=== PATIENT | male | born 1940 | race Hispanic/Latino ===

== ENCOUNTER 2017-08-19 18:46 | Emergency (ER) | payer OTHER, MEDICARE ==
--- OUTSIDE RECORDS SUMMARY | 2017-08-19 18:48 | XMS REPORT | Clinical Summary ---
:1940 Author Organization [facility] Address [address] [place] [address] Care Team Providers Name Role Phone Rober Guillaume MD Primary Care Provider Allergies Active Allergy Reactions Severity Noted Date Comments Adhesive Tape-Silicones 01/31/2016 No Known Drug Allergies 01/31/2016 Current Medications Prescription Sig. Disp. Refills Start Date End Date Status glimepiride (AMARYL) 2 Take 2 mg by Active MG tablet mouth 2 (two) times a day. amLODIPine (NORVASC) 10 Take 10 mg by Active MG tablet mouth 2 (two) times a day. apixaban (ELIQUIS) 5 mg Take by mouth 2 Active tablet (two) times a day. FEXOFENADINE HCL Take by mouth Active (HAIR ALLERGY ORAL) daily. latanoprost (XALATAN) 1 drop nightly. Active 0.005 % ophthalmic solution donepezil (ARICEPT) 5 09/09/2016 Active MG tablet omeprazole (PriLOSEC) 08/26/2016 Active 40 MG capsule simvastatin (ZOCOR) 40 Take 1 tablet 90 tablet 3 09/10/2016 09/10/2017 Active MG tabletIndications: (40 mg total) Hyperlipidemia, by mouth unspecified nightly. 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 Coronary arteriosclerosis 11/09/2015 Type 2 diabetes mellitus 11/09/2015 HLD (hyperlipidemia) 11/09/2015 Encounters Date Type Specialty Care Team Description 04/01/2017 Lab Lab Mustapha Jama MD Paroxysmal atrial fibrillation; CAD in [place] artery 04/01/2017 Office Visit Cardiology Mustapha Jama MD Hx of CABG (Primary Dx); Paroxysmal atrial fibrillation; CAD in [place] artery 11/05/2016 Lab Lab Jose Yariel Status post eze Gaitan MD artery bypass graft 11/05/2016 Office Visit Cardiovascular Yariel Garcia S/P CABG (coronary artery MD Arnie bypass graft) (Primary Dx) 11/04/2016 Orders Only Jillian Zuniga Status post coronary artery bypass graft (Primary Dx) 09/10/2016 Office Visit Cardiology Mustapha Jama MD Hx of CABG (Primary Dx); Hyperlipidemia, unspecified hyperlipidemia type; Coronary arteriosclerosis; Paroxysmal atrial fibrillation after 08/18/2016 Family History Medical History Relation Name Comments Blood Clots Mother Relation Name Status Comments Mother Social History Tobacco Use Types Packs/Day Years Used Date Former Smoker Cigarettes 0.5 20 Smokeless Tobacco: Former User Comments: QUIT-1980 Alcohol Use Drinks/Week oz/Week Comments No Sex Assigned at Date Recorded Not on file Last Filed Vital Signs Vital Sign Reading Time Taken Blood Pressure 125/62 04/01/2017 11:18 AM RENTAL CLERK Pulse 65 04/01/2017 11:18 AM RENTAL CLERK Temperature 35.7 C (96.2 F) 11/05/2016 1:08 PM CDT Respiratory Rate 14 11/05/2016 1:08 PM CDT Oxygen Saturation - - Inhaled Oxygen Concentration - - Weight 87.2 kg (192 lb 3.2 oz) 04/01/2017 11:18 AM RENTAL CLERK Height 167.6 cm (5' 6") 11/05/2016 1:08 PM CDT Body Mass Index 31.02 04/01/2017 11:18 AM RENTAL CLERK Plan of Treatment Date Type Specialty Care Team Description 09/30/2017 Office Visit Cardiology Mustapha Jama MD [address] [place] [address] Health Maintenance Due Date Last Done Comments DIABETIC FOOT EXAM 06/21/1950 DIABETIC RETINAL EYE EXAM 06/21/1950 SHINGRIX VACCINE (#1) 06/21/1991 ZOSTER VACCINE 2001 PNEUMOCOCCAL POLYSACCHARIDE VACCINE AGE 65 AND OVER 2006 PNEUMOCOCCAL-13 2006 INFLUENZA VACCINE 10/22/2017 Implants Implanted Type Area Glove Tagger Device Expiration Model / Identifier Date Serial / Lot Lead Pace Chandler Mycrdl Unipol Tmpry Streamline - [id number] Cardiovascular N/A: [employer] [place] - [id number] / Implanted: 11/09/2015 (Quantity not on file) Implants N/A CARDIAC SRGRY / Lead Pace Chandler Mycrdl Unipol Tmpry Streamline - [id number] Cardiovascular N/A: [employer] [place] - [id number] / Implanted: 11/09/2015 (Quantity not on file) Implants N/A CARDIAC SRGRY / [place] Perph Vasclr Ptfe 1.2x10cm 1.65mm - [id number] Vascular Graft N/A: BARD PERIPHERAL [id number] / Implanted: 11/09/2015 (Quantity not on file) N/A VASCULAR / Results Lipid panel (04/01/2017 11:41 AM) Component Value Ref Range Cholesterol 132 100 - 199 mg/dL Triglycerides 221 (H) 0 - 149 mg/dL HDL cholesterol 41 >39 mg/dL VLDL cholesterol ann 44 (H) 5 - 40 mg/dL LDL cholesterol calculated 47 0 - 99 mg/dL Non-HDL cholesterol 91 0 - 129 mg/dL Specimen Performing Laboratory Blood [facility] Narrative Performed at:[address] [place], [place] [id number] Shingles Roofer Helper: Michael Dukes MD, Phone:[phone] ECG 12 lead (04/01/2017 11:27 AM) Component Value Ref Range Ventricular rate 60 Atrial rate 60 MS interval 206 QRSD interval 90 QT interval 426 QTC interval 426 P axis 1 49 QRS axis 1 56 T wave axis 55 EKG impression Normal sinus rhythm-Normal ECG-In automated comparison with ECG of 13-NOV-2015 11:57,-Questionable change in QRS axis-Nonspecific T wave abnormality no longer evident in Inferior leads-Nonspecific T wav e abnormality no longer evident in Anterolateral leads- 2: 26:30 PM Specimen Performing Laboratory [facility] [address] [place] [address] MWS - LDL cholesterol (11/05/2016 2:15 PM) Component Value Ref Range MWS - LDL cholesterol 85Comment: Result obtained by direct LDL measurement < 100 mg/dL Specimen Performing Laboratory Plasma specimen [facility] DEPARTMENT OF PATHOLOGY AND [facility] [address] [place] [id number] Estimated GFR (11/05/2016 2:15 PM) Component Value Ref Range GFR Non Af Amer 65 mL/min/1.73 m2 GFR Af Amer 79 mL/min/1.73 m2 Comment: Chronic kidney disease: <60 mL/min/1.73m2 Kidney failure: <15 mL/min/1.73m2 The estimated GFR is calculated from the IDMS-traceable Modification of Diet in Renal Disease Equation. The accuracy of the calculation is poor when the creatinine is normal. Calculated values >90 mL/min/1.73m2 are not reported. This equation has not been validated in children (<18 years), women, the elderly (>70 years), or ethnic groups other than Caucasians and Americans. Specimen Performing Laboratory Plasma specimen [facility] DEPARTMENT OF PATHOLOGY AND [address] [address] Hemoglobin & hematocrit (11/05/2016 2:15 PM) Component Value Ref Range HGB 14.1 14.0 - 18.0 g/dL HCT 41.4 41.0 - 51.0 % Specimen Performing Laboratory Blood [facility] DEPARTMENT OF PATHOLOGY AND [facility] [address] [place] [id number] Triglycerides (11/05/2016 2:15 PM) Component Value Ref Range Triglycerides 143 <150 mg/dL Specimen Performing Laboratory Plasma specimen [facility] DEPARTMENT OF PATHOLOGY AND GENOMIC MEDICINE [address] [place] [id number] HDL cholesterol (11/05/2016 2:15 PM) Component Value Ref Range HDL cholesterol 48 >40 mg/dL Specimen Performing Laboratory Plasma specimen [facility] DEPARTMENT OF PATHOLOGY AND GENOMIC MEDICINE [address] [place] [id number] Hemoglobin A1c (11/05/2016 2:15 PM) Component Value Ref Range Hemoglobin A1C 6.2 (H) 4.0 - 5.6 % Comment: HbA1c cutoffs for diagnosing diabetes: 4.0% - 5.6%=normal 5.7% - 6.4%=increased risk for diabetes (prediabetes) >=6.5%=diabetes Goals for glycemic control (ADA 2016) < 7.0%Target for non adults with diabetes. More or less stringent targets may be appropriate for individual patients. <7.5% Target for Children and adolescents with type 1 diabetes. Specimen Performing Laboratory Blood [facility] DEPARTMENT OF PATHOLOGY AND GENOMIC MEDICINE [address] [place] [phone] Creatinine level (11/05/2016 2:15 PM) Component Value Ref Range Creatinine 1.1 0.7 - 1.2 mg/dL Specimen Performing Laboratory Plasma specimen [facility] DEPARTMENT OF PATHOLOGY AND GENOMIC MEDICINE [address] [place] [address] Cholesterol (11/05/2016 2:15 PM) Component Value Ref Range Cholesterol 148 <200 mg/dL Specimen Performing Laboratory Plasma specimen [facility] DEPARTMENT OF PATHOLOGY AND GENOMIC MEDICINE [address] [place] [id number] after 08/18/2016 Insurance Payer Benefit Plan / Group Subscriber ID Type Phone Address MEDICARE MEDICARE PART A AND B xxxxxxxxxx Medicare [place], [place] AARP AARP SUPPLEMENT xxxxxxxxxxx Commercial [phone] [place] [phone]
[2017-08-19] MEDS ORDERED: ASPIRIN 81 MG CHEWABLE TABLET ONE (21:32)
[2017-08-19 21:41] LABS: Absolute Lymphocytes (CBC) 1.8 K/uL (0.7-4.9); Absolute Monocytes 0.7 K/uL (0.1-1.3); Absolute Neutrophil 3.1 K/uL (1.8-8.0); Basophils % 0.6 % (0-1.3); Eosinophils % 2.6 % (0-4.4); Lymphocytes % 30.8 % (15.3-44.8); MCH 31.6 pg (27.0-35.0); MCV 90.7 fL (80-100); MPV 8.8 fL (7.6-11.3); Monocytes % 12.1 % (3.3-12.3); RBC Red Blood Cell Count 4.63 M/uL (4.33-5.43)
[2017-08-19 21:48] LABS: Protime INR 1.14
[2017-08-19 21:52] LABS: Bicarbonate 30 mEq/L (21-31); Glucose Level 152 mg/dL (65-120); Potassium 3.5 mEq/L (3.6-5.0); Sodium Level 140 mEq/L (135-145)
[2017-08-19 21:53] LABS: BUN Blood Urea Nitrogen 14 mg/dL (6-20); Magnesium 2.2 mg/dL (1.8-2.5)
[2017-08-19 22:43] LABS: Urine Blood NEGATIVE (NEG); Urine Glucose 1+ (NEG); Urine Protein NEGATIVE (NEG); Urine pH 6.5 (5.0-7.0)
--- NOTE | 2017-08-19 23:45 | EDPHYS ---
Physician Documentation [facility] Name: Herb Greco Jr Age: 77 yrs Sex: Male : 1940 Arrival Date: 08/19/2017 Time: 18:50 Bed 6 Private MD: Rober Guillaume ED Physician Ralph Argueta HPI: 08/19 21:21 This 77 yrs old Male presents to ER via Ambulatory with complaints of Chest jr8 Pain. 21:21 The patient or guardian reports chest pain that is located primarily in the anterior jr8 chest wall, left. Onset: acutely, yesterday. The pain does not radiate. Associated signs and symptoms: Pertinent positives: indigestive feeling . The chest pain is described as a pressure. Duration: The patient or guardian reports multiple episodes, that are intermittent, that wax and wane, the episodes last approximately 30 second(s). Modifying factors: The symptoms are alleviated by nothing. the symptoms are aggravated by nothing. Severity of pain: At its worst the pain was moderate in the emergency department the pain has resolved. The patient has not experienced similar symptoms in the past. The patient has not recently seen a physician. History of CABG and angioplasty . Historical: - Allergies: 19:01 No Known Allergies; lp1 - Home Meds: 21:17 pantoprazole 40 mg oral TbEC 1 tab once daily [Active]; Eliquis 5 mg oral tab 1 tab ak1 daily [Active]; Aspir-81 81 mg oral TbEC 1 tab once daily [Active]; donepezil 5 mg oral tab 1 tab once daily [Active]; glimepiride 4 mg Oral tab 1 tab once daily [Active]; simvastatin 40 mg Oral tab 1 tab once daily [Active]; memantine 5 mg oral tab 2 times per day [Active]; amlodipine oral [Active]; - PMHx: 19:01 Diabetes - NIDDM; Hypertension; lp1 - PSHx: 19:01 Heart stents; Bypass; lp1 - Immunization history:: Adult Immunizations up to date. - Social history:: Smoking status: Patient/guardian denies using tobacco. - Ebola Screening: : No symptoms or risks identified at this time. ROS: 21:21 Eyes: Negative for injury, pain, redness, and discharge, ENT: Negative for injury, jr8 pain, and discharge, Neck: Negative for injury, pain, and swelling, Respiratory: Negative for shortness of breath, cough, wheezing, and pleuritic chest pain, Abdomen/GI: Negative for abdominal pain, nausea, vomiting, diarrhea, and constipation, Back: Negative for injury and pain, MS/Extremity: Negative for injury and deformity, Skin: Negative for injury, rash, and discoloration, Neuro: Negative for headache, weakness, numbness, tingling, and seizure. 21:21 Cardiovascular: Positive for chest pain, Negative for edema, orthopnea, palpitations, paroxysmal nocturnal dyspnea. Exam: 21:21 Eyes: Pupils equal round and reactive to light, extra-ocular motions intact. Lids and jr8 lashes normal. Conjunctiva and sclera are non-icteric and not injected. Cornea within normal limits. Periorbital areas with no swelling, redness, or edema. ENT: Nares patent. No nasal discharge, no septal abnormalities noted. Tympanic membranes are normal and external auditory canals are clear. Oropharynx with no redness, swelling, or masses, exudates, or evidence of obstruction, uvula midline. Mucous membranes moist. Neck: Trachea midline, no thyromegaly or masses palpated, and no cervical lymphadenopathy. Supple, full range of motion without nuchal rigidity, or vertebral point tenderness. No Meningismus. Cardiovascular: Regular rate and rhythm with a normal S1 and S2. No gallops, murmurs, or rubs. Normal PMI, no JVD. No pulse deficits. Respiratory: Lungs have equal breath sounds bilaterally, clear to auscultation and percussion. No rales, rhonchi or wheezes noted. No increased work of breathing, no retractions or nasal flaring. Abdomen/GI: Soft, non-tender, with normal bowel sounds. No distension or tympany. No guarding or rebound. No evidence of tenderness throughout. Back: No spinal tenderness. No costovertebral tenderness. Full range of motion. Skin: Warm, dry with normal turgor. Normal color with no rashes, no lesions, and no evidence of cellulitis. MS/ Extremity: Pulses equal, no cyanosis. Neurovascular intact. Full, normal range of motion. Neuro: Awake and alert, GCS 15, oriented to person, place, time, and situation. Cranial nerves II-XII grossly intact. Motor strength 5/5 in all extremities. Sensory grossly intact. Cerebellar exam normal. Normal gait. Vital Signs: 19:00 BP 173 / 83; Pulse 68; Resp 18; Temp 98.3(TE); Pulse Ox 98% on R/A; Weight 83.91 kg; lp1 Height 5 ft. 7 in. (170.18 cm); Pain 2/10; 21:29 BP 177 / 96; Pulse 54; Resp 13; Pulse Ox 98% on R/A; Pain 0/10; tl2 22:41 BP 162 / 84; Pulse 55; Resp 13; Pulse Ox 99% on R/A; tl2 23:40 BP 176 / 88; Pulse 55; Resp 14; Temp 98.3; Pulse Ox 99% on R/A; Pain 1/10; ak1 19:00 Body Mass Index 28.97 (83.91 kg, 170.18 cm) lp1 MDM: 21:14 Patient medically screened. jr8 23:43 The patient was not given aspirin in the Emergency Department. Patient reports taking jr8 aspirin within the past 24 hours. Data reviewed: vital signs, nurses notes, lab test result(s), EKG, radiologic studies, plain films, and as a result, I will discharge patient. Data interpreted: Pulse oximetry: on room air is 99 %. Interpretation: normal. Counseling: I had a detailed discussion with the patient and/or guardian regarding: the historical points, exam findings, and any diagnostic results supporting the discharge/admit diagnosis, lab results, radiology results, the need for outpatient follow up, a chute worker, a family practitioner, to return to the emergency department if symptoms worsen or persist or if there are any questions or concerns that arise at home. 23:44 Differential diagnosis: acute myocardial infarction, acute pericarditis, chest wall jr8 pain, esophagitis, gastritis, gastroesophageal reflux disease (GERD), pancreatitis, pneumonia, pulmonary embolus, stable angina, thoracic aortic disection, unstable angina. Special discussion: Based on the patient's history, exam, and Dx evaluation, there is no indication for emergent intervention or inpatient Tx. It is understood by the patient/guardian that if the Sx's persist or worsen they need to return immediately for re-evaluation. 08/19 21:14 Order name: Basic Metabolic Panel; Complete Time: 21:57 jr8 08/19 21:14 Order name: BNP; Complete Time: 22:07 jr8 08/19 21:14 Order name: CBC with Diff; Complete Time: 21:47 [facility] 08/19 21:14 Order name: Magnesium; Complete Time: 21:57 08/19 21:14 Order name: PT-INR; Complete Time: 22:07 [facility] 08/19 21:14 Order name: Troponin (emerg Dept Use Only); Complete Time: 22:02 [facility] 08/19 21:14 Order name: XRAY Chest (1 view) 08/19 21:14 Order name: EKG; Complete Time: 21:15 [facility] 08/19 21:14 Order name: Cardiac monitoring; Complete Time: :28 [facility] 08/19 21:14 Order name: EKG - Nurse/Tech; Complete Time: : [facility] 08/19 21:14 Order name: IV Saline Lock; Complete Time: : [facility] 08/19 22:38 Order name: Urine Dipstick--Ancillary (enter results); Complete Time: 22: 08/19 22:56 Order name: Troponin (emerg Dept Use Only); Complete Time: 23:43 08/19 21:14 Order name: Labs collected and sent; Complete Time: : [facility] 08/19 21:14 Order name: O2 Per Protocol; Complete Time: : [facility] 08/19 21:14 Order name: O2 Sat Monitoring; Complete Time: : [facility] 08/19 21:14 Order name: Urine Dipstick-Ancillary (obtain specimen); Complete Time: 22:13 Administered Medications: 21:45 Not Given (Pt took at home): Aspirin Chewable Tablet 324 mg PO once; 81 mg tablets x 4 tl2 Disposition: 08/20 06:47 Co-signature as Attending Physician, Ralph Argueta MD. rn Disposition: 08/19/17 23:43 Discharged to Home. Impression: Chest pain, unspecified. - Condition is Stable. - Discharge Instructions: Nonspecific Chest Pain, Aspirin and Your Heart. - Medication Reconciliation Form, Thank You Letter, Antibiotic Education, Prescription Opioid Use form. - Follow up: Private Physician; When: 2 - 3 days; Reason: Recheck today's complaints, Continuance of care, Re-evaluation by your physician. - Problem is new. - Symptoms have improved. Signatures: Dispatcher [employer] EDRalph Gudino MD MD rn Pena, Laura RN RN lp1 Steven Resendiz PA PA jr8 Mackenzie Granda RN RN ak1 Vidya Valentino RN tl2 Corrections: (The following items were deleted from the chart) 08/19 23:52 23:43 08/19/2017 23:43 Discharged to Home. Impression: Chest pain, unspecified. ak1 Condition is Stable. Forms are Medication Reconciliation Form, Thank You Letter, Antibiotic Education, Prescription Opioid Use. Follow up: Private Physician; When: 2 - 3 days; Reason: Recheck today's complaints, Continuance of care, Re-evaluation by your physician. Problem is new. Symptoms have improved. jr8
--- NOTE | 2017-08-19 23:45 | ER ---
Nurse's Notes [facility] Name: Herb Greco Jr Age: 77 yrs Sex: Male : 1940 Arrival Date: 08/19/2017 Time: 18:50 Bed 6 Private MD: Rober Guillaume Diagnosis: Chest pain, unspecified Presentation: 08/19 18:58 Presenting complaint: Patient states: Left anterior chest pain that began yesterday, lp1 severe, chest pain back today but not as bad; States indigestion as well. Transition of care: patient was not received from another setting of care. Onset of symptoms was August 18, 2017. Risk Assessment: Do you want to hurt yourself or someone else? Patient reports no desire to harm self or others. Initial Sepsis Screen: Does the patient meet any 2 criteria? No. Patient's initial sepsis screen is negative. Does the patient have a suspected source of infection? No. Patient's initial sepsis screen is negative. Care prior to arrival: None. 18:58 Method Of Arrival: Ambulatory lp1 18:58 Acuity: LIZZ 3 lp1 Triage Assessment: 19:01 General: Appears in no apparent distress. Behavior is calm, cooperative, appropriate lp1 for age. Pain: Complains of pain in anterior aspect of left upper chest Pain currently is 2 out of 10 on a pain scale. Cardiovascular: Patient's skin is warm and dry. Historical: - Allergies: 19:01 No Known Allergies; lp1 - Home Meds: 21:17 pantoprazole 40 mg oral TbEC 1 tab once daily [Active]; Eliquis 5 mg oral tab 1 tab ak1 daily [Active]; Aspir-81 81 mg oral TbEC 1 tab once daily [Active]; donepezil 5 mg oral tab 1 tab once daily [Active]; glimepiride 4 mg Oral tab 1 tab once daily [Active]; simvastatin 40 mg Oral tab 1 tab once daily [Active]; memantine 5 mg oral tab 2 times per day [Active]; amlodipine oral [Active]; - PMHx: 19:01 Diabetes - NIDDM; Hypertension; lp1 - PSHx: 19:01 Heart stents; Bypass; lp1 - Immunization history:: Adult Immunizations up to date. - Social history:: Smoking status: Patient/guardian denies using tobacco. - Ebola Screening: : No symptoms or risks identified at this time. Screenin:17 Abuse screen: Denies threats or abuse. Denies injuries from another. Nutritional ak1 screening: No deficits noted. Tuberculosis screening: No symptoms or risk factors identified. Fall Risk None identified. Assessment: 21:17 Pain: ak1 21:17 General: Appears in no apparent distress. comfortable, Behavior is calm, cooperative, tl2 appropriate for age. Pain: Denies pain. Neuro: Level of Consciousness is awake, alert, obeys commands, Oriented to person, place, time, situation. Cardiovascular: Reports pt reported that he had chest pain earlier today but denies pain at this time. Respiratory: Airway is patent Respiratory effort is even, unlabored, Respiratory pattern is regular, symmetrical. GI: No signs and/or symptoms were reported involving the gastrointestinal system. : No signs and/or symptoms were reported regarding the genitourinary system. Derm: Skin is pink, warm \T\ dry. 21:18 Pain: Pain began 1 day ago. ak1 21:37 Reassessment: Pt stated he took 324 mg aspirin before coming to [facility], will notify tl2 MD. 22:44 Reassessment: Patient appears in no apparent distress at this time. No changes from tl2 previously documented assessment. Patient and/or family updated on plan of care and expected duration. Pain level reassessed. Patient is alert, oriented x 3, equal unlabored respirations, skin warm/dry/pink. Vital Signs: 19:00 BP 173 / 83; Pulse 68; Resp 18; Temp 98.3(TE); Pulse Ox 98% on R/A; Weight 83.91 kg; lp1 Height 5 ft. 7 in. (170.18 cm); Pain 2/10; 21:29 BP 177 / 96; Pulse 54; Resp 13; Pulse Ox 98% on R/A; Pain 0/10; tl2 22:41 BP 162 / 84; Pulse 55; Resp 13; Pulse Ox 99% on R/A; tl2 23:40 BP 176 / 88; Pulse 55; Resp 14; Temp 98.3; Pulse Ox 99% on R/A; Pain 1/10; ak1 19:00 Body Mass Index 28.97 (83.91 kg, 170.18 cm) lp1 Vitals: 22:41 Cardiac Rhythm Assessment Sinus ravindra. tl2 ED Course: 18:50 Patient arrived in ED. mr 18:50 Rober Guillaume MD is Private Physician. mr 18:59 Triage completed. lp1 19:00 Arm band placed on right wrist. lp1 19:02 Patient maintains SpO2 saturation greater than 95% on room air. lp1 21:14 Steven Resendiz PA is PHCP. jr8 21:14 Ralph Argueta MD is Attending Physician. jr8 21:18 No provider procedures requiring assistance completed. ak1 21:19 Mackenzie Granda, RN is Primary Nurse. ak1 21:19 Patient has correct armband on for positive identification. Bed in low position. Call ak1 light in reach. Side rails up X 1. eyeglass frames inspector on. Pulse ox on. NIBP on. 21:37 X-ray completed. Portable x-ray completed in exam room. Patient tolerated procedure kc2 well. 21:39 XRAY Chest (1 view) In Process Unspecified. EDMS 23:49 IV discontinued, intact, bleeding controlled, No redness/swelling at site. Pressure ak1 dressing applied. Administered Medications: 21:45 Not Given (Pt took at home): Aspirin Chewable Tablet 324 mg PO once; 81 mg tablets x 4 tl2 Outcome: 23:43 Discharge ordered by . jr8 23:44 Discharged to home ambulatory, with family. ak1 23:44 Condition: stable 23:44 Discharge instructions given to patient, family, Instructed on discharge instructions, follow up and referral plans. Demonstrated understanding of instructions, follow-up care. 23:52 Patient left the ED. ak1 Signatures: Dispatcher [employer] [facility] Hortensia Romero Ivana Millan, RN RN lp1 Steven Resendiz PA PA jr8 Mackenzie Granda RN RN [email or web address] Kate Zapien2 Vidya Valentino RN RN tl2
[2017-08-20 00:39] VITALS: TEMP 98.3
[2017-08-20 00:41] VITALS: O2SAT 99
[2017-08-20 00:42] VITALS: BP 176/88
--- NOTE | 2017-08-20 07:43 | EKG ---
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
--- NOTE | 2017-08-20 07:49 | RAD REPORT ---
EXAM DESCRIPTION: [place] Single View08/19/2017 9:39 pm CLINICAL HISTORY: Chest pain COMPARISON: 2013 FINDINGS: The lungs appear clear of acute infiltrate. The heart is mildly enlarged. Postsurgical changes involve the chest. IMPRESSION: No acute abnormalities displayed
== END 2017-08-19 23:52 | disposition home or self-care (01) ==
LOC: ER 18:46
DX: R07.9 Chest pain, unspecified (principal); I10 Essential (primary) hypertension; E11.9 Type 2 diabetes mellitus without complications; Z95.818 Presence of other cardiac implants and grafts; Z79.01 Long term (current) use of anticoagulants; Z79.82 Long term (current) use of aspirin; Z95.1 Presence of aortocoronary bypass graft
CPT/HCPCS: 36415; 71045; 80048; 81003; 83735; 83880; 84484; 85025; 85610; 93005; 99284

== ENCOUNTER 2018-12-16 19:38 | Emergency (ER) | payer OTHER, MEDICARE ==
[2018-12-16] MEDS ORDERED: FAMOTIDINE 20 MG/2 ML VIAL IV ONE (20:56)
[2018-12-16] MEDS ORDERED: NA CHLORIDE 0.9% 1,000 ML ONE (20:56)
[2018-12-16 20:59] LABS: Absolute Lymphocytes (CBC) 1.3 K/uL (0.7-4.9); Basophils % 0.9 % (0-1.3); Hematocrit 38.2 % (39.6-49.0); Lymphocytes % 18.3 % (15.3-44.8); MPV 8.7 fL (7.6-11.3); RBC Red Blood Cell Count 4.18 M/uL (4.33-5.43)
[2018-12-16 21:00] LABS: Protime INR 1.08
[2018-12-16 21:29] LABS: ALT/SGPT 23 U/L (12-78); AST/SGOT 20 U/L (15-37); Albumin 4.3 g/dL (3.4-5.0); Alkaline Phosphatase 113 U/L (45-117); BUN Blood Urea Nitrogen 20 mg/dL (7-18); Bicarbonate 28 mmol/L (21-32); Bilirubin Direct 0.2 mg/dL (0-0.2); Bilirubin Total 0.6 mg/dL (0.2-1.0); Glucose Level 217 mg/dL (74-106); Lipase 198 U/L (73-393); Magnesium 2.3 mg/dL (1.8-2.4); NT PRO-BNP 139 pg/mL (<450); Potassium 3.5 mmol/L (3.5-5.1); Protein, Total 7.4 g/dL (6.4-8.2); Sodium Level 139 mmol/L (136-145); Troponin (Emerg Dept Use Only) < 0.02 ng/mL (0.0-0.045)
[2018-12-16 22:11] LABS: Urine Blood NEGATIVE (NEG); Urine Glucose 2+ (NEG); Urine Protein NEGATIVE (NEG); Urine pH 5.5 (5.0-7.0)
--- NOTE | 2018-12-16 23:10 | ER ---
Nurse's Notes [facility] Name: Herb Greco Jr Age: 78 yrs Sex: Male : 1940 Arrival Date: 12/16/2018 Time: 19:45 Bed 24 Private MD: Diagnosis: Abdominal tenderness;Type 2 diabetes mellitus Presentation: 12/16 19:52 Presenting complaint:. Presenting complaint: Patient states: gas in his upper abd since ak1 1800. pt denies N/V/D. pt stated he is passing gas. Transition of care: patient was not received from another setting of care. Onset of symptoms was December 16, 2018. Risk Assessment: Do you want to hurt yourself or someone else? Patient reports no desire to harm self or others. Initial Sepsis Screen: Does the patient meet any 2 criteria? No. Patient's initial sepsis screen is negative. Does the patient have a suspected source of infection? No. Patient's initial sepsis screen is negative. Care prior to arrival: None. 19:52 Acuity: LIZZ 3 ak1 19:52 Method Of Arrival: Ambulatory ak1 Triage Assessment: 19:56 General: Appears in no apparent distress. uncomfortable, Behavior is calm, cooperative. ak1 Pain: Complains of pain in epigastric area, right upper quadrant and left upper quadrant. Historical: - Allergies: 19:56 No Known Allergies; ak1 - Home Meds: 19:56 Eliquis 5 mg Oral tab 1 tab daily [Active]; simvastatin 40 mg Oral tab 1 tab once daily ak1 [Active]; donepezil 10 mg oral tab 1 tab once daily [Active]; amlodipine 10 mg oral tab 1 tab once daily [Active]; glimepiride 4 mg Oral tab 1 tab once daily [Active]; memantine 5 mg Oral tab 2 times per day [Active]; tamsulosin 0.4 mg oral cp24 1 cap once daily [Active]; olopatiadine [Active]; lotanoprost optho [Active]; - PMHx: 19:56 Diabetes - NIDDM; Hypertension; Alzheimers; ak1 - PSHx: 19:56 Heart stents; Bypass; ak1 - Immunization history:: Adult Immunizations unknown. - Social history:: Smoking status: Patient/guardian denies using tobacco. - Ebola Screening: : No symptoms or risks identified at this time. - Family history:: not pertinent. Screenin:08 Abuse screen: Denies threats or abuse. Denies injuries from another. Nutritional ca1 screening: No deficits noted. Tuberculosis screening: No symptoms or risk factors identified. Fall Risk None identified. Assessment: 20:08 General: Appears in no apparent distress. comfortable, Behavior is calm, cooperative, ca1 appropriate for age. Pain: Complains of pain in left upper quadrant and right upper quadrant and epigastric area Pain currently is 5 out of 10 on a pain scale. Pain began 2 hours ago. Neuro: Level of Consciousness is awake, alert, obeys commands, Oriented to person, place, time, situation. Cardiovascular: Heart tones S1 S2 present Capillary refill < 3 seconds Patient's skin is warm and dry. Respiratory: Airway is patent Respiratory effort is even, unlabored, Respiratory pattern is regular, symmetrical, Breath sounds are clear bilaterally. GI: Abdomen is flat, non-distended, Bowel sounds present X 4 quads. Abd is soft and non tender X 4 quads. : No deficits noted. No signs and/or symptoms were reported regarding the genitourinary system. EENT: No deficits noted. No signs and/or symptoms were reported regarding the EENT system. Derm: Skin is intact, is healthy with good turgor, Skin is pink, warm \T\ dry. Musculoskeletal: Circulation, motion, and sensation intact. Capillary refill < 3 seconds, Range of motion: intact in all extremities. 21:00 Reassessment: Patient appears in no apparent distress at this time. Patient and/or ca1 family updated on plan of care and expected duration. Pain level reassessed. Patient is alert, oriented x 3, equal unlabored respirations, skin warm/dry/pink. 22:00 Reassessment: Patient appears in no apparent distress at this time. Patient and/or ca1 family updated on plan of care and expected duration. Pain level reassessed. Patient is alert, oriented x 3, equal unlabored respirations, skin warm/dry/pink. 23:00 Reassessment: Patient appears in no apparent distress at this time. Patient and/or ca1 family updated on plan of care and expected duration. Pain level reassessed. Patient is alert, oriented x 3, equal unlabored respirations, skin warm/dry/pink. Vital Signs: 19:56 BP 143 / 121; Pulse 76; Resp 18; Temp 98.6; Pulse Ox 98% on R/A; Weight 83.91 kg (R); ak1 Height 5 ft. 8 in. (172.72 cm) (R); Pain 0/10; 21:00 BP 145 / 81; Pulse 63; Resp 17 S; Pulse Ox 98% on R/A; ca1 22:00 BP 151 / 79; Pulse 63; Resp 16 S; Pulse Ox 99% on R/A; ca1 23:01 BP 149 / 75; Pulse 65; Resp 15 S; Pulse Ox 98% on R/A; ca1 19:56 Body Mass Index 28.13 (83.91 kg, 172.72 cm) ak1 ED Course: 19:45 Patient arrived in ED. ds1 19:53 Triage completed. ak1 19:56 Arm band placed on Patient placed in waiting room, Patient notified of wait time. ak1 20:07 Shazia Olivares, RN is Primary Nurse. ca1 20:08 Patient has correct armband on for positive identification. Placed in gown. Bed in low ca1 position. Call light in reach. Side rails up X 1. Pulse ox on. NIBP on. Warm blanket given. 20:16 Tra Davis MD is Attending Physician. cortez 20:30 Urine collected: clean catch specimen, clear, laurie colored. jp3 20:40 Patient maintains SpO2 saturation greater than 95% on room air. jp3 20:40 Initial lab(s) drawn, by hi, sent to lab. Inserted saline lock: 20 gauge in right jp3 forearm, using aseptic technique. Blood collected. 20:52 Abdomen Acute Series XRAY In Process Unspecified. EDMS 21:15 EKG done, by ED staff, reviewed by Tra Davis MD. jp3 23:20 No provider procedures requiring assistance completed. IV discontinued, intact, ca1 bleeding controlled, No redness/swelling at site. Pressure dressing applied. Administered Medications: 21:00 Drug: NS 0.9% 500 ml Route: IV; Rate: bolus; Site: right forearm; ca1 22:00 Follow up: Urine output 200 ml; Response: No adverse reaction; IV Status: Completed ca1 infusion 21:00 Drug: Pepcid 20 mg Route: IVP; Site: right forearm; ca1 22:15 Follow up: Response: No adverse reaction; Pain is decreased ca1 21:53 Drug: NS 0.9% 1000 ml Route: IV; Rate: 125 ml/hr; Site: right forearm; ca1 23:19 Follow up: IV Status: Order to discontinue infusion ca1 Output: 22:00 Urine: 200ml; Total: 200ml. ca1 Outcome: 23:09 Discharge ordered by . cortez 23:20 Discharged to home ambulatory, with family. ca1 23:20 Condition: stable 23:20 Discharge instructions given to patient, family, Instructed on discharge instructions, follow up and referral plans. medication usage, Demonstrated understanding of instructions, follow-up care, medications, Prescriptions given X 3. 23:20 Patient left the ED. ca1 Signatures: Dispatcher [employer] EDMS Tra Davis MD MD cha Sanford, Demi ds1 Laurie Granda RN RN ak1 Feroz Royal jp3 Shazia Olivares RN RN ca1
--- NOTE | 2018-12-16 23:10 | EDPHYS ---
Physician Documentation [facility] Name: Herb Greco Jr Age: 78 yrs Sex: Male : 1940 Arrival Date: 12/16/2018 Time: 19:45 Bed 24 Private MD: ED Physician Tra Davis HPI: 12/16 20:28 This 78 yrs old Male presents to ER via Ambulatory with complaints of Upper cortez ABD Pain. 20:28 The patient presents with abdominal pain in the epigastric area, in the upper abdomen. cortez Onset: The symptoms/episode began/occurred just prior to arrival. The symptoms radiate to. Associated signs and symptoms: none. The symptoms are described as crampy. Modifying factors: The symptoms are alleviated by nothing, the symptoms are aggravated by nothing. Severity of pain: At its worst the pain was mild in the emergency department the pain has improved moderately. The patient has experienced similar episodes in the past, several times. Historical: - Allergies: 19:56 No Known Allergies; ak1 - Home Meds: 19:56 Eliquis 5 mg Oral tab 1 tab daily [Active]; simvastatin 40 mg Oral tab 1 tab once daily ak1 [Active]; donepezil 10 mg oral tab 1 tab once daily [Active]; amlodipine 10 mg oral tab 1 tab once daily [Active]; glimepiride 4 mg Oral tab 1 tab once daily [Active]; memantine 5 mg Oral tab 2 times per day [Active]; tamsulosin 0.4 mg oral cp24 1 cap once daily [Active]; olopatiadine [Active]; lotanoprost optho [Active]; - PMHx: 19:56 Diabetes - NIDDM; Hypertension; Alzheimers; ak1 - PSHx: 19:56 Heart stents; Bypass; ak1 - Immunization history:: Adult Immunizations unknown. - Social history:: Smoking status: Patient/guardian denies using tobacco. - Ebola Screening: : No symptoms or risks identified at this time. - Family history:: not pertinent. ROS: 20:28 Constitutional: Negative for fever, chills, and weight loss, Eyes: Negative for injury, cortez pain, redness, and discharge, ENT: Negative for injury, pain, and discharge, Neck: Negative for injury, pain, and swelling, Cardiovascular: Negative for chest pain, palpitations, and edema, Respiratory: Negative for shortness of breath, cough, wheezing, and pleuritic chest pain, Back: Negative for injury and pain, : Negative for injury, bleeding, discharge, and swelling, MS/Extremity: Negative for injury and deformity, Skin: Negative for injury, rash, and discoloration, Neuro: Negative for headache, weakness, numbness, tingling, and seizure, Psych: Negative for depression, anxiety, suicide ideation, homicidal ideation, and hallucinations, Allergy/Immunology: Negative for hives, rash, and allergies, Endocrine: Negative for neck swelling, polydipsia, polyuria, polyphagia, and marked weight changes, Hematologic/Lymphatic: Negative for swollen nodes, abnormal bleeding, and unusual bruising. 20:28 Abdomen/GI: Positive for abdominal pain, abdominal distension. Exam: 20:28 Constitutional: This is a well developed, well nourished patient who is awake, alert, cortez and in no acute distress. Head/Face: Normocephalic, atraumatic. Eyes: Pupils equal round and reactive to light, extra-ocular motions intact. Lids and lashes normal. Conjunctiva and sclera are non-icteric and not injected. Cornea within normal limits. Periorbital areas with no swelling, redness, or edema. ENT: Nares patent. No nasal discharge, no septal abnormalities noted. Tympanic membranes are normal and external auditory canals are clear. Oropharynx with no redness, swelling, or masses, exudates, or evidence of obstruction, uvula midline. Mucous membranes moist. Neck: Trachea midline, no thyromegaly or masses palpated, and no cervical lymphadenopathy. Supple, full range of motion without nuchal rigidity, or vertebral point tenderness. No Meningismus. Chest/axilla: Normal chest wall appearance and motion. Nontender with no deformity. No lesions are appreciated. Cardiovascular: Regular rate and rhythm with a normal S1 and S2. No gallops, murmurs, or rubs. Normal PMI, no JVD. No pulse deficits. Respiratory: Lungs have equal breath sounds bilaterally, clear to auscultation and percussion. No rales, rhonchi or wheezes noted. No increased work of breathing, no retractions or nasal flaring. Abdomen/GI: Soft, non-tender, with normal bowel sounds. No distension or tympany. No guarding or rebound. No evidence of tenderness throughout. Back: No spinal tenderness. No costovertebral tenderness. Full range of motion. Male : Normal genitalia with no discharge or lesions. Skin: Warm, dry with normal turgor. Normal color with no rashes, no lesions, and no evidence of cellulitis. MS/ Extremity: Pulses equal, no cyanosis. Neurovascular intact. Full, normal range of motion. Neuro: Awake and alert, GCS 15, oriented to person, place, time, and situation. Cranial nerves II-XII grossly intact. Motor strength 5/5 in all extremities. Sensory grossly intact. Cerebellar exam normal. Normal gait. Psych: Awake, alert, with orientation to person, place and time. Behavior, mood, and affect are within normal limits. Vital Signs: 19:56 BP 143 / 121; Pulse 76; Resp 18; Temp 98.6; Pulse Ox 98% on R/A; Weight 83.91 kg (R); ak1 Height 5 ft. 8 in. (172.72 cm) (R); Pain 0/10; 21:00 BP 145 / 81; Pulse 63; Resp 17 S; Pulse Ox 98% on R/A; ca1 22:00 BP 151 / 79; Pulse 63; Resp 16 S; Pulse Ox 99% on R/A; ca1 23:01 BP 149 / 75; Pulse 65; Resp 15 S; Pulse Ox 98% on R/A; ca1 19:56 Body Mass Index 28.13 (83.91 kg, 172.72 cm) ak1 MDM: 20:17 Patient medically screened. [facility] 20:30 Data reviewed: vital signs, nurses notes, lab test result(s), urinalysis, EKG, [facility] radiologic studies, plain films. 12/16 20:28 Order name: Basic Metabolic Panel; Complete Time: 23:07 [facility] 12/16 20:28 Order name: CBC with Diff; Complete Time: 23: [facility] 12/16 20:28 Order name: LFT's; Complete Time: 23:07 [facility] 12/16 20:28 Order name: Magnesium; Complete Time: 23: [facility] 12/16 20:28 Order name: NT PRO-BNP; Complete Time: 23:07 [facility] 12/16 20:28 Order name: PT-INR; Complete Time: 23:07 [facility] 12/16 20:28 Order name: Troponin (emerg Dept Use Only); Complete Time: 23:07 [facility] 12/16 20:28 Order name: Lipase; Complete Time: 23:07 [facility] 12/16 20:28 Order name: Urine Culture [facility] 12/16 20:28 Order name: Abdomen Acute Series XRAY [facility] 12/16 21:03 Order name: Urine Dipstick--Ancillary (enter results); Complete Time: 23:07 em1 12/16 20:28 Order name: EKG; Complete Time: 20:30 [facility] 12/16 20:28 Order name: Cardiac monitoring; Complete Time: 20:56 [facility] 12/16 20:28 Order name: EKG - Nurse/Tech; Complete Time: 21:15 [facility] 12/16 20:28 Order name: IV Saline Lock; Complete Time: 20:56 [facility] 12/16 20:28 Order name: Labs collected and sent; Complete Time: 20:56 [facility] 12/16 20:28 Order name: O2 Per Protocol; Complete Time: 20:56 [facility] 12/16 20:28 Order name: O2 Sat Monitoring; Complete Time: 20:56 [facility] 12/16 20:28 Order name: Urine Dipstick-Ancillary (obtain specimen); Complete Time: 20:56 [facility] Administered Medications: 21:00 Drug: NS 0.9% 500 ml Route: IV; Rate: bolus; Site: right forearm; ca1 22:00 Follow up: Urine output 200 ml; Response: No adverse reaction; IV Status: Completed ca1 infusion 21:00 Drug: Pepcid 20 mg Route: IVP; Site: right forearm; ca1 22:15 Follow up: Response: No adverse reaction; Pain is decreased ca1 21:53 Drug: NS 0.9% 1000 ml Route: IV; Rate: 125 ml/hr; Site: right forearm; ca1 23:19 Follow up: IV Status: Order to discontinue infusion ca1 Disposition: 12/16/18 23:09 Discharged to Home. Impression: Abdominal tenderness, Type 2 diabetes mellitus. - Condition is Stable. - Discharge Instructions: Abdominal Pain, Adult, Type 2 Diabetes Mellitus, Diagnosis, Adult, Nausea, Adult, Abdominal Pain, Adult, [id number], Type 2 Diabetes Mellitus, Diagnosis, Adult, [id number], Nausea, Adult, [id number], Type 2 Diabetes Mellitus, Self Care, Adult, Type 2 Diabetes Mellitus, Self Care, Adult, [id number]. - Prescriptions for Bentyl 20 mg Oral Tablet - take 1 tablet by ORAL route every 6 hours As needed; 20 tablet. Pepcid 20 mg Oral Tablet - take 1 tablet by ORAL route every 12 hours for 10 days; 20 tablet. Zofran 4 mg Oral Tablet - take 1 tablet by ORAL route every 12 hours As needed; 14 tablet. - Medication Reconciliation Form, Thank You Letter, Antibiotic Education, Prescription Opioid Use form. - Follow up: Private Physician; When: 2 - 3 days; Reason: Recheck today's complaints, Continuance of care, Re-evaluation by your physician. - Problem is new. - Symptoms have improved. Signatures: Dispatcher [employer] EDMS Tra Davis MD MD cha Krenek, Amber RN RN ak1 Shazia Olivares RN RN ca1 Corrections: (The following items were deleted from the chart) 23:20 23:09 12/16/2018 23:09 Discharged to Home. Impression: Abdominal tenderness; Type 2 ca1 diabetes mellitus. Condition is Stable. Forms are Medication Reconciliation Form, Thank You Letter, Antibiotic Education, Prescription Opioid Use. Follow up: Private Physician; When: 2 - 3 days; Reason: Recheck today's complaints, Continuance of care, Re-evaluation by your physician. Problem is new. Symptoms have improved. cortez
[2018-12-16 23:43] VITALS: TEMP 98.6
[2018-12-16 23:47] VITALS: BP 149/75; O2SAT 98
--- NOTE | 2018-12-17 07:19 | RAD REPORT ---
EXAM DESCRIPTION: RAD - Abdomen Acute Series - 12/16/2018 8:59 pm CLINICAL HISTORY: ABD PAIN COMPARISON: Chest Single View dated 08/19/2017 FINDINGS: Lung volumes are low. Infiltrate is doubtful. Lung markings are increased slightly in the medial left base. This is not substantially different from the comparison. Patient can be monitored f or any clinical findings suggesting pneumonia. Heart size and pulmonary vasculature are normal. No pleural effusion, pneumothorax or other acute ca rdiopulmonary process seen. Stomach is normal size. There is a large amount of stool filling but not dilating the colon. This ext ends from cecum to the distal descending colon. No small bowel dilatation. No bowel obstruction, free air or other acute findings. No suspicious calcifications. No other suspicious for significant findings. IMPRESSION: No acute chest finding. Stranding in the medial left base is not substantially different . Left base infiltrate is doubtful but not entirely excluded. Follow-up can be obtained as warranted. Abdomen examination shows large amount of stool filling but not dilating the colon. No small bowel ob struction, free air or other emergent finding.
--- NOTE | 2018-12-18 08:43 | EKG ---
Test Date: 2018-12-16 Test Time: 21:11:00 Cylinder Dyer: RISA MEASUREMENT RESULTS: Intervals: Rate: 69 [place]: 200 QRSD: 86 QT: 412 QTc: 441 [place]: P: 28 [place]: 200 QRS: 25 T: 69 INTERPRETIVE STATEMENTS: Normal sinus rhythm Normal ECG Compared to ECG 08/19/2017 19:29:09 Sinus bradycardia no longer present Electronically Signed On 12-18-18 08:41:26 CDT by Romulo Campa
== END 2018-12-16 23:20 | disposition home or self-care (01) ==
LOC: ER 19:38
DX: R10.819 Abdominal tenderness, unspecified site (principal); E11.9 Type 2 diabetes mellitus without complications; I10 Essential (primary) hypertension; G30.9 Alzheimer's disease, unspecified; F02.80 Dementia in other diseases classified elsewhere, unspecified severity, without behavioral disturbance, psychotic disturbance, mood disturbance, and anxiety; Z79.01 Long term (current) use of anticoagulants; Z95.1 Presence of aortocoronary bypass graft; Z95.818 Presence of other cardiac implants and grafts
CPT/HCPCS: 96361; 93005; 87088; 85025; 80048; 36415; 83735; 85610; 80076; 81003; 84484; 83690; 83880; 74022; 96374; 99285; J7030; 87086

== ENCOUNTER 2020-11-25 12:18 | Emergency (ER) | payer MEDICARE, OTHER ==
--- OUTSIDE RECORDS SUMMARY | 2020-11-25 12:22 | XMS REPORT | Continuity of Care Document ---
:1940 Author Organization [facility] t Address [address] [place] [address] Care Team Providers Name Role Phone Markell HILL Primary Care Physician Arnie Garcia MD Attending Clinician Hannah Attending Clinician Unavailable Rony Attending Clinician Unavailable Dennis Garff Attending Clinician Unavailable Easton OVALLES Attending Clinician Unavailable Yaya Barron MD Attending Clinician Rani HILL, R. Attending Clinician Only, Test Attending Clinician Unavailable Physician, Primary or Family Admitting Clinician UnavailYaya Coulter MD Admitting Clinician Payers Payer Name Policy Type Policy Number Effective Date Expiration Date S ource Problems Condition Condition Condition Status Onset Resolution Last Treating Co mments Source Name Details Category Date Date Treatment Clinician Date Abnormal Abnormal Disease Active 2018-03 Overview: [place] thodi stress stress 1-[address] test test 00:00: g of this Hospita 00 note l might be different from the original. 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 in Disease Active 2015-03 [facility] [address] artery artery 00:00: Hospita 00 l Atrial Atrial Disease Active 2015-03 Methodi fibrillati fibrillati 04-01 st on on 00:00: Hospita 00 l SOB SOB Disease Active 2015-03 Methodi (shortness (shortness 04-01 st of breath) of breath) 00:00: Ho spita 00 l Essential Essential Disease Active 2015-03 Met hodi hypertensi hypertensi 04-01 st on on 00:00: Hospita 00 l Paroxysmal Paroxysmal Disease Active 2015-03 M ethodi atrial atrial 04-01 st fibrillati fibrillati 00:00: Ho spita on on 00 l Presence Presence Disease Active 2015-03 Metho di of stent of stent 04-01 st in in 00:00: Hospita coronary coronary 00 l artery artery 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 00:00: Hospita 00 l Coronary Coronary Disease Active Metho di arterioscl arterioscl 8[address] erosis erosis 00:00: Hospita 00 l 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 diabetes 818 st mellitus mellitus 00:00: Hospit a 00 l HLD HLD Disease Active Methodi (hyperlipi (hyperlipi 818 st demia) demia) 00:00: Hospita 00 l Allergies, Adverse Reactions, Alerts Allergy Allergy Status Severity Reaction(s) Onset Inactive Treating Comm ents Source Name Type Date Date Clinician No Known DA Active [facility] All[facility]ie 09-09 [facility] Adhesive Propensi Active 2015-03 Method i Tape-Siobhan ty to 04-01 st icones adverse 00:00: Hospita reaction 00 l s to drug No Known Propensi Active 2015-03 Method i Drug ty to 04-01 st Allergie adverse 00:00: Hospita s reaction 00 l s to drug Family History Family Member Diagnosis Comments Start Date Stop Date Source Natural mother Blood Clots [facility] Social History Social Habit Start Date Stop Date Quantity Comments Source History of tobacco Cigarette Smoker [facility] use [facility] Exposure to Not sure [facility] SARS-CoV-2 (event) Hospit al Cigarettes smoked 2020-10-30 2020-10-[address] current (pack per 00:00:00 00:00:00 Hospita l day) - Reported Cigarette 2020-10-30 2020-10-30 [facility] pack-years 00:00:00 00:00:00 Hospital Tobacco use and 2020-10-30 2020-10-30 Former user Methodis t exposure 00:00:00 00:00:00 Hospital Alcohol intake 2020-10-30 2020-10-30 Current [facility] 00:00:00 00:00:00 non-drinker of Hospital alcohol (finding) Tobacco Comment 2015-11-07 2015-11-07 QUIT-1981 [facility] 00:00:00 00:00:00 Hospital Sex Assigned At [birth year] [facility] 00:00:00 00:00:00 Hospital Smoking Status Start Date Stop Date Source Former smoker 2020-10-30 00:00:00 2020-10-30 00:00:00 Method t [facility] Medications Ordered Filled Start Stop Current Ordering Indication Dosage Frequency Signature Comments Components Source Medication Medication Date Date Medication? Clinician (SIG) Name Name potassium Yes 20meq QD Take 20 Meth lorraine chloride 8-[address] (KLOR-CON) 18:33: mouth Hospit a 20 mEq 22 daily. l packet aloe vera Yes Take by Metho di 25 mg 8-[address] capsule 18:33: Hospita 22 l omega-3/dha Yes Take by Met hodi /epa/dpa/fi 8-[address] sh oil 18:33: Hospita (OMEGA-3 22 l 2100 ORAL) ergocalcife Yes 1000mg Take 1,000 Methodi rol, 8-[address] vitamin D2, 18:33: mouth. Hosp darius (VITAMIN D2 22 l ORAL) apixaban Yes Q.5D Take by Method i (ELIQUIS) 5 8-[address] mg tablet 18:27: (two) Hospita 07 times a l day. FEXOFENADIN Yes Take by Met hodi E HCL [address] (HAIR 18:27: needed. Hospit a ALLERGY 07 l ORAL) latanoprost Yes 1[drp] QD 1 drop Me thodi (XALATAN) 8-[address] 0.005 % 18:27: Hospita ophthalmic 07 l solution tamsulosin Yes .4mg QD Take 0.4 Met hodi (FLOMAX) 8-[address] 0.4 mg 18:27: mouth Hospita capsule 07 daily with l dinner. simvastatin Yes 40mg QD Take 40 mg Methodi (ZOCOR) [address] MG tablet 18:27: nightly. Hosp darius 07 l glimepiride Yes 4mg Q.5D Take 4 mg M ethodi (AMARYL) [address] MG tablet 18:25: (two) Hospita 17 times a l day. amLODIPine Yes 10mg Q.5D Take 10 mg M ethodi (NORVASC) [address] 10 MG 18:25: (two) Hospita tablet 17 times a l day. furosemide 2019-03 No [id number] 20mg QD Take 1 Methodi (LASIX) 20 0-20 10-21 tablet (20 st mg tablet 00:00: 04:59 mg total) Ho spita 00 :00 by mouth l daily. memantine Yes 5mg Q.5D 5 mg 2 Method i (NAMENDA) 5 5-22 (two) st MG tablet 00:00: times a Hospi ta 00 day. l donepezil 0 Yes 10mg QD Take 10 mg Me thodi (ARICEPT) 5 6-[address] MG tablet 00:00: nightly. Hosp darius 00 l Simvastatin Simvastatin Yes Lilly [address] [facility] Tamsulosin Tamsulosin Yes Lilly [address] HCl HCl [facility] Amlodipine Amlodipine Yes Lilly [address] Besylate Besylate Trisha [facility] Memantine Memantine Yes Lilly [address] HCl HCl Trisha [facility] Donepezil Donepezil Yes Lilly [address] HCl HCl Trisha at bedtime [facility] Eliquis 5 Eliquis 5 Yes Lilly one [facility] mg mg [facility] Glimepiride Glimepiride Yes Lilly [address] [facility] [facility]isha with [facility] - breakfast [facility] or the l first main Outpati meal of ent the day Clinics Vital Signs Vital Name Observation Time Observation Value Comments Source Systolic blood 2020-10-30 18:17:00 131 mm[Hg] [facility] pressure Diastolic blood 2020-10-30 18:17:00 74 mm[Hg] [facility] pressure Heart rate 2020-10-30 18:17:00 67 /min [facility] Body temperature 2020-10-30 18:17:[address] [facility] Respiratory rate 2020-10-30 18:17:00 20 /min [facility] Body weight 2020-10-30 18:17:00 87.952 kg [facility] BMI 2020-10-30 18:17:00 30.37 kg/m2 [facility] Oxygen saturation in 2020-10-30 18:17:00 97 /min [facility] Arterial blood by Pulse oximetry Body height 2020-05-30 16:43:00 170.2 cm [facility] Procedures Procedure Date / Time Performed Performing Clinician [facility] e ECG 12-LEAD 2020-10-30 17:19:13 Shiv Garcia HEMOGLOBIN A1C 2020-10-30 16:56:00 Shiv Garcia HEMOGLOBIN 2020-10-30 16:56:00 Shiv Garcia CREATININE LEVEL 2020-10-30 16:56:00 Shiv Garcia LIPID PANEL 2020-10-30 16:56:00 Shiv Garcia ESTIMATED GFR 2020-10-30 16:56:00 Shiv Garciapital Arnie TTE COMPLETE, W 2020-01-12 17:19:36 Zoran Saravia W DOPPLER ([id number]) Plan of Care Planned Activity Planned Date Details Comments Source Future Scheduled Test 65+ PNEUMOCOCCAL [facility] VACCINE (1 of 2 - PPSV23) [code = 65+ PNEUMOCOCCAL VACCINE (1 of 2 - PPSV23)] Future Scheduled Test DIABETES: RETINAL EYE [facility] EXAM [code = DIABETES: RETINAL EYE EXAM] Future Scheduled Test DIABETIC FOOT EXAM [facility] [code = DIABETIC FOOT EXAM] Future Scheduled Test COVID-19 VACCINE (1) [facility] [code = COVID-19 VACCINE (1)] Future Scheduled Test Hepatitis C screening [facility] (procedure) [code = 606343734] Future Scheduled Test SHINGLES VACCINES (#1) [facility] [code = SHINGLES VACCINES (#1)] Future Scheduled Test INFLUENZA VACCINE [code [facility] = INFLUENZA VACCINE] Encounters Start End Encounter Admission Attending Care Care Encounter Source Date/Time Date/Time Type Type Clinicians Facility Department ID 2020-10-30 2020-10-30 Office Jose, 1.2.840.1 [id number] Methodi 13:05:44 13:48:26 Visit Shiv 82449.1.1 571 [facility] 3.430.2.7 Hospit a .3.524142 l .8 2020-10-30 2020-10-30 Lab Jose, 1.2.840.1 [id number] Methodi 11:41:56 11:46:56 Shiv 17988.1.1 759 [facility] 3.430.2.7 Hospit a .3.131076 l .8 2020-10-30 2020-10-30 Orders Young, 1.2.840.1 [id number] Methodi 00:00:00 00:00:00 Only Nicole 63584.1.[address] 3.430.2.7 Hospit a .3.662666 l .8 2020-10-30 2020-10-30 Travel 1.2.840.1 1.2.111.604 5689 [id number] Methodi 00:00:00 00:00:[address] 3.430.2.7 0.2.7.3.698 spita .3.042832 084.8 l .8 2020-10-30 2020-10-30 Orders Génesis Uribe 1.2.840.1 [id number] Methodi 00:00:00 00:00:[address] 3.430.2.7 Hospit a .3.437612 l .8 2020-10-30 2020-10-30 Outpatient JOSE, [facility] [id number] [place] 00:00:00 00:00:[address] SHIV [address] 2020-10-30 2020-10-30 Outpatient JOSE, [facility] [id number] Jones 00:00:00 00:00:00 SHIV [address] 2020-10-19 2020-10-19 Telephone Jsoe 1.2.840.1 [id number] Methodi 00:00:00 00:00:[address] Arnie 3.430.2.7 Hospit a .3.204557 l .8 2020-09-09 2020-09-10 Emergency EM Prerna, [facility] [id number] [facility] 22:27:00 01:40:00 Darci [id number] [facility] 2020-08-02 2020-08-02 Santana Mccormack 1.2.840.1 [id number] Methodi 00:00:00 00:00:00 Only Polo 06625.1.[address] 3.430.2.7 Hospit a .3.670673 l .8 2020-05-31 2020-05-31 [facility] 1.2.840.114 8 [id number] 08:08:00 11:30:00 Patti Bowen 350.1.13.10 Maria L 4.2.7.2.686 Surgical [id number] Hurley 071 2020-05-30 2020-05-30 Office Saravia, 1.2.840.1 [id number] Methodi 10:37:18 14:36:14 Visit Zoran TonyChaim 19450.1.[address] 3.430.2.7 Hospit a .3.453084 l .8 2020-05-30 2020-05-30 Laboratory Only, [facility] 1.2.840.114 8 [id number] 09:23:40 09:38:40 Only Test [place] 350.1.13.10 [place] 4.2.7.2.686 [place] [id number] 353 2020-05-30 2020-05-30 Travel 1.2.840.1 1.2.688.407 6575 [id number] Methodi 00:00:00 00:00:[address] 3.430.2.7 0.2.7.3.698 Ho spita .3.542709 084.8 l .8 2020-05-30 2020-05-30 Outpatient RANI, [facility] [id number] [address] [place] [address] 00:00:00 00:00:00 ZORAN [address] 2020-05-22 2020-05-22 Telephone Saravia, 1.2.840.1 [id number] Methodi 00:00:00 00:00:00 Zoran [address] 3.430.2.7 Hospit a .3.881092 l .8 2020-05-22 2020-05-22 Travel 1.2.840.1 1.2.532.356 [id number] Methodi 00:00:00 00:00:[address] 3.430.2.7 0.2.7.3.698 Ho spita .3.515587 084.8 l .8 2020-05-03 2020-05-03 Travel 1.2.840.1 1.2.542.876 5982 [id number] Methodi 00:00:00 00:00:[address] 3.430.2.7 0.2.7.3.698 Ho spita .3.196251 084.8 l .8 2020-01-12 2020-01-12 Outpatient SARAVIACAPE [facility] [id number] Jones 00:00:00 00:00:[address] 2020-01-11 2020-01-11 Office Rani, 1.2.840.1 [id number] Methodi 13:06:12 15:55:20 Visit Zoran Traylor 90404.1.[address] 3.430.2.7 Hospit a .3.006292 l .8 2020-01-11 2020-01-11 Travel 1.2.840.1 1.2.388.493 [id number] [id number] Methodi 00:00:00 00:00:[address] 3.430.2.7 0.2.7.3.698 Ho spita .3.885927 084.8 l .8 2020-01-11 2020-01-11 Outpatient RANICAPE [facility] [id number] Jones 00:00:00 00:00:[address] ZORAN [address] 2020-01-03 2020-01-03 Outpatient [facility]LMLC [facility] [id number] [facility] 2019-12-03 2019-12-03 [facility] [id number] 14:15:00 14:15:00 t Specialty/U Karly kes - Specialty rology [facility] a /Urology Clinic l Clinic [facility] Results Test Description Test Time Test Comments Results Result Comments Source ECG 12 lead 2020-10-31 13:18:29 Test Item Value Reference Range Interpretation Comme nts Ventricular rate (test code = 253) Atrial rate (test code = 255) [place] interval (test code = 266) QRSD interval (test code = 260) QT interval (test code = 264) QTC interval (test code = 265) P axis 1 (test code = 267) QRS axis 1 (test code = 268) T wave axis (test code = 270) EKG impression (test code = 273) Normal sinus rhythm-Junctional ST depression, probably normal-Borderline ECG-In automated comparison with ECG of 05-NOV-2019 14:23,-Criteria for Inferior infarct are no longer present- Freida Medina-[id number] 01:25:00 Test Item Value Reference Range Interpretation Comments TROPONIN-I (test < 0.04 NG/ML 0.00-0.06 N - The use of serial code = TROPI) sampling and t esting protocol is a recommended pra ctice.- An elevated tro ponin level alone is often not sufficient fo r diagnosis of my ocardial infarction.Resu lts of this assay meth od may be falsely depress ed orelevated if p atient is taking high dos es of Biotin. - XR CHEST 1 [id number] 00:08:00 [facility] : 1940 Sex: M Patient Name: ANASTACIO GOMEZ Unit No: [id number] EXAMS: CPT CODE: [id number] XR CHEST 1 V [id number] Reason: chest pain PROCEDURE INFORM ATION: Exam: XR Chest Exam date and time: 09/09/2020 10:35 PM Age: 80 years old Clinical indication: Chest wall pain; Additional info: Chest pain TECHNIQUE: Imaging protocol: XR of the chest. Views: 1 view. Total images: 1 COMPARISON: No relevant prior studies available. FINDINGS: Lungs: Pulmonary vasculature grossly normal. No gross pulmonary infiltrates. Pleural spaces: No pleural effusion. No pneumothorax. Heart/Mediastinum: Heart size normal. Prior median sternotomy. No tracheal/mediastinal shift. Bones/joints: No acute osseous abnormalities are identified. Other f indings: Lordotic projection, mildly limiting sensitivity. IMPRESSION: 1. No acute findings. 2. Lordotic projection mildly limiting sensitivity. INTERNAL CODING PURPOSES ONLY RESULT CODE: CVR Elec tronically Signed by Tj Mckeon MD [facility] on 09/10/2020 at 0008 Reported and signed by: Tj Mckeon MD [facility] CC: Darci Graff DO Technologist: MARQUEZ CHOUDHURY, KARI Trscrpt Dt/ (7)[facility].VR Orig Print D/T: S: 09/10/2020 (7) [place] FSED NAME: ANASTACIO GOMEZ [address] PHYS: [email or web address] - Prerna,[place] [id number] : 1940 AGE: 80 SEX: M LOC: D.NER PHONE #: [phone] EXAM DATE: 09/09/2020 STATUS: PRE ER FAX #: RAD NO: DC Dt: PAGE 1 Signed ReportBASIC METABOLIC [id number] 23:14:00 Test Item Value Reference Range Interpretation Comments SODIUM (test code = 139 MMOL/L 133-145 N NA) POTASSIUM (test 3.5 MMOL/L 3.6-5.2 L code = K) CHLORIDE (test code 100 MMOL/L 100-108 N = CL) CARBON DIOXIDE 30 MMOL/L 22-32 N (test code = CO2) GLUCOSE (test code 322 MG/DL 65-99 H Results o f this = GLU) assay method ma y be falsely depressed orelevated if patient is taki ng sulfasalazine. BLOOD UREA NITROGEN 16 MG/DL 6-20 N (test code = BUN) GLOMERULAR Unable to 42-98 N Unable to FILTRATION RATE calculate calculate eG FR; no (test code = GFR) race enter ed to medical record.Reportin g units: mL/min/1.73m\S\ 2 (Modified MDRD Formula) CREATININE (test 0.99 MG/DL 0.60-1.00 N code = CREAT) CALCIUM (test code 8.6 MG/DL 8.7-10.5 L = CA) HEPATIC FUNCTION [id number] 23:14:00 Test Item Value Reference Range Interpretation Comments TOTAL PROTEIN (test 6.7 G/DL 6.4-8.2 N code = PROT) ALBUMIN (test code = 3.9 G/DL 3.4-5.0 N ALB) GLOBULIN (test code = 2.8 G/DL 1.5-3.8 N GLOB) ALBUMIN/GLOBULIN RATIO 1.4 1.1-2.2 N (test code = A/G) BILIRUBIN TOTAL (test 0.4 MG/DL 0.0-1.0 N code = BILT) BILIRUBIN DIRECT (test 0.1 MG/DL 0.0-0.3 N code = BILD) BILIRUBIN INDIRECT 0.3 MG/DL 0.0-0.7 N (test code = BILIND) SGOT/AST (test code = 18 Units/L 15-37 N Result s of this AST) assay method ma y be falsely depress ed orelevated if patient is taki ng sulfasalazine. SGPT/ALT (test code = 32 Units/L 30-65 N Result s of this ALT) assay method ma y be falsely depress ed orelevated if patient is taki ng sulfasalazine. ALKALINE PHOSPHATASE 115 Units/L 50-136 N TOTAL (test code = ALKP) [id number] 23:14:00 Test Item Value Reference Range Interpretation Comments LIPASE (test code = LIP) 376 Units/L 73-393 N [id number] 23:14:00 Test Item Value Reference Range Interpretation Comments TROPONIN-I (test < 0.04 NG/ML 0.00-0.06 N - The use of serial code = TROPI) sampling and t esting protocol is a recommended pra ctice.- An elevated tro ponin level alone is often not sufficient fo r diagnosis of my ocardial infarction.Resu lts of this assay meth od may be falsely depress ed orelevated if p atient is taking high dos es of Biotin. [id number] 23:05:00 Test Item Value Reference Range Interpretation Comments LIPASE (test code = LIP) Units/L 73-393 [id number] 23:05:00 Test Item Value Reference Range Interpretation Comments TROPONIN-I (test code = TROPI) NG/ML 0.00-0.06 BASIC METABOLIC [id number] 23:05:00 Test Item Value Reference Range Interpretation Comments SODIUM (test code = 139 MMOL/L 133-145 N NA) POTASSIUM (test 3.5 MMOL/L 3.6-5.2 L code = K) CHLORIDE (test code 100 MMOL/L 100-108 N = CL) CARBON DIOXIDE 30 MMOL/L 22-32 N (test code = CO2) GLUCOSE (test code 322 MG/DL 65-99 H Results o f this = GLU) assay method ma y be falsely depressed orelevated if patient is taki ng sulfasalazine. BLOOD UREA NITROGEN 16 MG/DL 6-20 N (test code = BUN) GLOMERULAR Unable to 42-98 N Unable to FILTRATION RATE calculate calculate eG FR; no (test code = GFR) race enter ed to medical record.Reportin g units: mL/min/1.73m\S\ 2 (Modified MDRD Formula) CREATININE (test 0.99 MG/DL 0.60-1.00 N code = CREAT) CALCIUM (test code 8.6 MG/DL 8.7-10.5 L = CA) HEPATIC FUNCTION [id number] 23:05:00 Test Item Value Reference Range Interpretation Comments TOTAL PROTEIN (test code = PROT) G/DL 6.4-8.2 ALBUMIN (test code = ALB) G/DL 3.4-5.0 GLOBULIN (test code = GLOB) G/DL 1.5-3.8 ALBUMIN/GLOBULIN RATIO (test code = 1.1-2.2 A/G) BILIRUBIN TOTAL (test code = BILT) MG/DL 0.0-1.0 BILIRUBIN DIRECT (test code = BILD) MG/DL 0.0-0.3 SGOT/AST (test code = AST) Units/L 15-37 SGPT/ALT (test code = ALT) Units/L 30-65 ALKALINE PHOSPHATASE TOTAL (test Units/L 50-136 code = ALKP) CBC W/AUTO [id number] 22:57:00 Test Item Value Reference Range Interpretation Comments WHITE BLOOD CELL (test code = 6.07 x10 3/uL 4.80-10.80 N WBC) RED BLOOD CELL (test code = 3.93 x10 6/uL 4.7-6.1 L RBC) HEMOGLOBIN (test code = HGB) 12.8 G/DL 14.0-17.0 L HEMATOCRIT (test code = HCT) 36.3 % 42-52 L MEAN CELL VOLUME (test code = 92.4 FL 80-94 N MCV) MEAN CELL HGB (test code = MCH) 32.6 PG 27-31 H MEAN CELL HGB CONCENTRATION 35.3 G/DL 33-37 N (test code = MCHC) RED CELL DISTRIBUTION WIDTH 12.1 % 11.5-14.5 N (test code = RDW) PLATELET COUNT (test code = 273 x10 3/uL 150-450 N PLT) MEAN PLATELET VOLUME (test code 10.2 FL 7.4-10.4 N = MPV) NEUTROPHIL % (test code = NT%) 53.4 % 42-86 N LYMPHOCYTE % (test code = LY%) 26.5 % 24-44 N MONOCYTE % (test code = MO%) 13.5 % 0.0-4.0 H EOSINOPHIL % (test code = EO%) 5.3 % 0.0-2.7 H BASOPHIL % (test code = BA%) 1.3 % 0.0-0.5 H NEUTROPHIL # (test code = NT#) 3.24 x10 3/uL 1.8-7.7 N LYMPHOCYTE # (test code = LY#) 1.61 x10 3/uL 1.0-4.8 N MONOCYTE # (test code = MO#) 0.82 x10 3/uL 0.0-0.8 H EOSINOPHIL # (test code = EO#) 0.32 x10 3/uL 0.0-0.5 N BASOPHIL # (test code = BA#) 0.08 x10 3/uL 0.0-0.2 N
--- NOTE | 2020-11-25 13:56 | RAD REPORT ---
EXAM DESCRIPTION: USExtremity Venous Uni Ltd11/25/2020 1:36 pm CLINICAL HISTORY: Right leg pain COMPARISON: None. FINDINGS: Right common femoral, superficial femoral, popliteal and right posterior tibial veins are compressible and demonstrate augmentation. Doppler demonstrates good flow. IMPRESSION: No evidence of deep venous thrombosis involving the right lower extremity.
--- NOTE | 2020-11-25 15:23 | EDPHYS ---
Physician Documentation [facility] Name: Herb Greco Jr Age: 80 yrs Sex: Male : 1940 Arrival Date: 11/25/2020 Time: 12:22 Bed DIS11 Private MD: ED Physician Tra Davis HPI: 11/25 15:13 This 80 yrs old Male presents to ER via Ambulatory with complaints of Leg Pain.cortez Historical: - Allergies: 12:48 No Known Allergies; aa5 - PMHx: 12:48 Alzheimers; Diabetes - NIDDM; Hypertension; aa5 - Immunization history:: Client reports receiving the 2nd dose of the Covid vaccine. - Social history:: Smoking status: Patient denies any tobacco usage or history of. ROS: 15:14 Constitutional: Negative for fever, chills, and weight loss, Eyes: Negative for injury, cortez pain, redness, and discharge, ENT: Negative for injury, pain, and discharge, Neck: Negative for injury, pain, and swelling, Cardiovascular: Negative for chest pain, palpitations, and edema, Respiratory: Negative for shortness of breath, cough, wheezing, and pleuritic chest pain, Abdomen/GI: Negative for abdominal pain, nausea, vomiting, diarrhea, and constipation, Back: Negative for injury and pain, : Negative for injury, bleeding, discharge, and swelling, Skin: Negative for injury, rash, and discoloration, Neuro: Negative for headache, weakness, numbness, tingling, and seizure, Psych: Negative for depression, anxiety, suicide ideation, homicidal ideation, and hallucinations, Allergy/Immunology: Negative for hives, rash, and allergies, Endocrine: Negative for neck swelling, polydipsia, polyuria, polyphagia, and marked weight changes, Hematologic/Lymphatic: Negative for swollen nodes, abnormal bleeding, and unusual bruising. 15:14 MS/extremity: Positive for decreased range of motion, pain, of the lateral aspect of right knee. Exam: 15:14 Constitutional: This is a well developed, well nourished patient who is awake, alert, cortez and in no acute distress. Head/Face: Normocephalic, atraumatic. Eyes: Pupils equal round and reactive to light, extra-ocular motions intact. Lids and lashes normal. Conjunctiva and sclera are non-icteric and not injected. Cornea within normal limits. Periorbital areas with no swelling, redness, or edema. ENT: Nares patent. No nasal discharge, no septal abnormalities noted. Tympanic membranes are normal and external auditory canals are clear. Oropharynx with no redness, swelling, or masses, exudates, or evidence of obstruction, uvula midline. Mucous membranes moist. Neck: Trachea midline, no thyromegaly or masses palpated, and no cervical lymphadenopathy. Supple, full range of motion without nuchal rigidity, or vertebral point tenderness. No Meningismus. Chest/axilla: Normal chest wall appearance and motion. Nontender with no deformity. No lesions are appreciated. Cardiovascular: Regular rate and rhythm with a normal S1 and S2. No gallops, murmurs, or rubs. Normal PMI, no JVD. No pulse deficits. Respiratory: Lungs have equal breath sounds bilaterally, clear to auscultation and percussion. No rales, rhonchi or wheezes noted. No increased work of breathing, no retractions or nasal flaring. Abdomen/GI: Soft, non-tender, with normal bowel sounds. No distension or tympany. No guarding or rebound. No evidence of tenderness throughout. Back: No spinal tenderness. No costovertebral tenderness. Full range of motion. Male : Normal genitalia with no discharge or lesions. Skin: Warm, dry with normal turgor. Normal color with no rashes, no lesions, and no evidence of cellulitis. Neuro: Awake and alert, GCS 15, oriented to person, place, time, and situation. Cranial nerves II-XII grossly intact. Motor strength 5/5 in all extremities. Sensory grossly intact. Cerebellar exam normal. Normal gait. Psych: Awake, alert, with orientation to person, place and time. Behavior, mood, and affect are within normal limits. 15:14 Musculoskeletal/extremity: ROM: limited active range of motion, limited passive range of motion, Circulation is intact in all extremities. Sensation intact. Compartment Syndrome exam of affected extremity: is normal. Joints: All joints are normal except the right knee displays pain at rest, tenderness, RIGHT LATERAL KNEE JOINT. Vital Signs: 12:49 BP 122 / 69; Pulse 68; Resp 16 S; Temp 97.9(TE); Pulse Ox 97% on R/A; Weight 86.18 kg aa5 (R); Height 5 ft. 8 in. (172.72 cm) (R); Pain 0/10; 16:44 BP 127 / 69; Pulse 65; Resp 18; Pulse Ox 98% on R/A; Pain 4/10; kg 12:49 Body Mass Index 28.89 (86.18 kg, 172.72 cm) aa5 MDM: 14:26 [facility]. [facility] 15:14 Differential diagnosis: contusion, tendonitis. Data reviewed: vital signs, nurses [facility] notes, radiologic studies, doppler, ultrasound. Data interpreted: repair cameraman: not applicable for this patient encounter. rate is 68 beats/min, rhythm is regular, Pulse oximetry: on room air is 97 %. Test interpretation: by ED physician or midlevel provider: plain radiologic studies. Counseling: I had a detailed discussion with the patient and/or guardian regarding: the historical points, exam findings, and any diagnostic results supporting the discharge/admit diagnosis, lab results, radiology results, the need for outpatient follow up, for definitive care, a family practitioner, a orthopedic surgeon. 11/25 12:50 Order name: US Extremity Venous Unilateral Ltd; Complete Time: 15:01 [facility] 11/25 15:13 Order name: Knee Right 3 View XRAY [facility] 11/25 15:13 Order name: Ice pack; Complete Time: 15:55 [facility] 11/25 15:13 Order name: Knee Immobilizer; Complete Time: 15:55 [facility] Administered Medications: 15:30 Drug: predniSONE 20 mg Route: PO; kg 16:46 Follow up: Response: No adverse reaction kg 15:33 Drug: Motrin (ibuprofen) 600 mg Route: PO; kg 16:46 Follow up: Response: No adverse reaction; Pain is decreased kg 15:33 Drug: [place] (HYDROcodone-acetaminophen) 10 mg-325 mg 1 tabs Route: PO; kg 16:46 Follow up: Response: No adverse reaction; Pain is decreased kg Disposition Summary: 11/25/20 15:22 Discharge Ordered Location: Home [facility] Problem: new cortez Symptoms: have improved cortez Condition: Stable cortez Diagnosis - Pain in right knee cortez - Iliotibial band syndrome cortez Followup: cortez - With: Private Physician - When: 2 - 3 days - Reason: Recheck today's complaints, Continuance of care, Re-evaluation by your physician Followup: cortez - With: Flynn Wolf MD - When: 2 - 3 days - Reason: Recheck today's complaints, Re-evaluation by your physician Discharge Instructions: - Discharge Summary Sheet cortez - Joint Pain cortez - Iliotibial Band Syndrome cortez - Acute Knee Pain, Adult cortez - Joint Pain, [id number] cortez - Iliotibial Bursitis Rehab-SportsMed cortez - Iliotibial Band Syndrome Rehab-SportsMed cortez - Iliotibial Bursitis [facility] Forms: - Medication Reconciliation Form [facility] - Thank You Letter cortez - Antibiotic Education [facility] - Prescription Opioid Use [facility] Prescriptions: - Ibuprofen 600 mg Oral Tablet - take 1 tablet by ORAL route every 6 hours As needed take with food; 30 tablet; cortez Refills: 0, Product Selection Permitted - Tylenol-Codeine #3 300 mg-30 mg Oral - take 2 tablet by ORAL route every 6 hours; 20 tablet; Refills: 0, Product [facility] Selection Permitted - Medrol (F[place]ad) 4 mg Oral Tablets, Dose Pack - take 1 tablet by ORAL route as directed - follow package instructions; 1 cortez packet; Refills: 0, Product Selection Permitted Signatures: Dispatcher [employer] Tra Amador MD MD cha Calderon, Audri, RN RN aa5 Honey Cline RN RN kg
--- NOTE | 2020-11-25 15:23 | ER ---
Nurse's Notes [facility] Name: Herb Greco Jr Age: 80 yrs Sex: Male : 1940 Arrival Date: 11/25/2020 Time: 12:22 Bed DIS11 Private MD: Diagnosis: Pain in right knee;Iliotibial band syndrome Presentation: 11/25 12:47 Chief complaint: Patient states: Pain to right lateral aspect of right lower leg that aa5 began yesterday. Pt denies swelling to leg. Coronavirus screen: At this time, the client does not indicate any symptoms associated with coronavirus-19. Ebola Screen: Patient negative for fever greater than or equal to 101.5 degrees Fahrenheit, and additional compatible Ebola Virus Disease symptoms. Initial Sepsis Screen: Does the patient meet any 2 criteria? No. Patient's initial sepsis screen is negative. Does the patient have a suspected source of infection? No. Patient's initial sepsis screen is negative. Risk Assessment: Do you want to hurt yourself or someone else? Patient reports no desire to harm self or others. Onset of symptoms was November 2020. 12:47 Method Of Arrival: Ambulatory aa5 12:47 Acuity: LIZZ 4 aa5 Triage Assessment: 16:45 General: Appears in no apparent distress. Behavior is calm, cooperative, appropriate kg for age, quiet. Pain: Complains of pain in right leg and right knee Pain currently is 4 out of 10 on a pain scale. at worst was 8 out of 10 on a pain scale. Historical: - Allergies: 12:48 No Known Allergies; aa5 - PMHx: 12:48 Alzheimers; Diabetes - NIDDM; Hypertension; aa5 - Immunization history:: Client reports receiving the 2nd dose of the Covid vaccine. - Social history:: Smoking status: Patient denies any tobacco usage or history of. Screenin:45 Abuse screen: Denies threats or abuse. Denies injuries from another. Nutritional kg screening: No deficits noted. Tuberculosis screening: No symptoms or risk factors identified. Fall Risk None identified. Assessment: 16:46 Musculoskeletal: Reports pain in right knee. kg Vital Signs: 12:49 BP 122 / 69; Pulse 68; Resp 16 S; Temp 97.9(TE); Pulse Ox 97% on R/A; Weight 86.18 kg aa5 (R); Height 5 ft. 8 in. (172.72 cm) (R); Pain 0/10; 16:44 BP 127 / 69; Pulse 65; Resp 18; Pulse Ox 98% on R/A; Pain 4/10; kg 12:49 Body Mass Index 28.89 (86.18 kg, 172.72 cm) aa5 ED Course: 12:22 Patient arrived in ED. as 12:47 Arm band placed on. aa5 12:48 Triage completed. aa5 13:36 US Extremity Venous Unilateral Ltd In Process Unspecified. EDMS 14:26 Janell Wilson, RN is Primary Nurse. 14:26 Tra Davis MD is Attending Physician. [facility] 15:19 Flynn Wolf MD is Referral Physician. [facility] 16:07 Knee Right 3 View XRAY In Process Unspecified. EDMS 16:45 Patient has correct armband on for positive identification. kg 16:45 No provider procedures requiring assistance completed. Patient did not have IV access kg during this emergency room visit. Administered Medications: 15:30 Drug: predniSONE 20 mg Route: PO; kg 16:46 Follow up: Response: No adverse reaction kg 15:33 Drug: Motrin (ibuprofen) 600 mg Route: PO; kg 16:46 Follow up: Response: No adverse reaction; Pain is decreased kg 15:33 Drug: [place] (HYDROcodone-acetaminophen) 10 mg-325 mg 1 tabs Route: PO; kg 16:46 Follow up: Response: No adverse reaction; Pain is decreased kg Outcome: 15:22 Discharge ordered by . cortez 16:45 Discharged to home ambulatory. kg 16:45 Condition: improved 16:45 Discharge instructions given to patient, Instructed on discharge instructions, follow up and referral plans. Demonstrated understanding of instructions, follow-up care, medications, Prescriptions given X 3. 16:47 Patient left the ED. kg Signatures: Dispatcher [employer] EDTN Tra Davis MD MD cha Martinez, Amelia as Janell Wilson, CHARLETTE OVALLES Gianna Anne RN RN aa5 Honey Cline RN RN kg
[2020-11-25] MEDS ORDERED: IBUPROFEN 200 MG TAB PO ONE ×2 (15:59→16:07)
[2020-11-25] MEDS ORDERED: HYDROCODONE/APAP 10/325 TAB ONE ×2 (15:59→16:06)
[2020-11-25] MEDS ORDERED: predniSONE 20 MG TAB ONE ×2 (16:00→16:07)
[2020-11-25] MEDS ORDERED: IBUPROFEN 400 MG TAB ONE ×2 (16:00→16:07)
--- NOTE | 2020-11-25 16:19 | RAD REPORT ---
EXAM DESCRIPTION: RAD - Knee Right 3 View - 11/25/2020 4:07 pm CLINICAL HISTORY: Right knee pain FINDINGS: No fracture or dislocation is seen. Chondrocalcinosis. Mild medial joint space narrowing. Spur extends off the anterior superior aspect o f patella
[2020-11-25 16:52] VITALS: TEMP 97.9
[2020-11-25 16:53] VITALS: BP 127/69; O2SAT 98
== END 2020-11-25 16:47 | disposition home or self-care (01) ==
LOC: ER 12:18
DX: M76.31 Iliotibial band syndrome, right leg (principal); I10 Essential (primary) hypertension; G30.9 Alzheimer's disease, unspecified
CPT/HCPCS: 93971; 99283; J7512

== ENCOUNTER 2021-05-15 13:29 | Inpatient (IN) | payer OTHER ==
--- OUTSIDE RECORDS SUMMARY | 2021-05-15 13:32 | XMS REPORT | Continuity of Care Document ---
:1940 Author Organization [facility] t Address [address] [place] [address] Care Team Providers Name Role Phone Markell HILL Primary Care Physician Yaya BARRON Attending Clinician Unavailable Arnie Garcia MD Attending Clinician Hannah Attending Clinician Unavailable Rony Attending Clinician Unavailable Dennis Graff Attending Clinician Unavailable Easton OVALLES Attending Clinician Unavailable Yaya Barron MD Attending Clinician Layton Jama MD Attending Clinician Only, Test Attending Clinician Unavailable Doctor Unassigned, Name Attending Clinician Unavailable Yaya BARRON Admitting Clinician Unavailable Physician, Primary or Family Admitting Clinician UnavailYaya Coulter MD Admitting Clinician Payers Payer Name Policy Type Policy Number Effective Date Expiration Date [facility] [id number] 2020 MEDICARE GOLD 00:00:00 Problems Condition Condition Condition Status Onset Resolution Last Treating Co mments Source Name Details Category Date Date Treatment Clinician Date Abnormal Abnormal Disease Active 2018-03 Overview: Me thodi stress stress 04-[address] test test 00:00: g of this Hospita 00 note l might be different from the original. 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 diabetes 818 st mellitus mellitus 00:00: Hospit a 00 l HLD HLD Disease Active Methodi (hyperlipi (hyperlipi 11-08 st demia) demia) 00:00: Hospita 00 l Allergies, Adverse Reactions, Alerts Allergy Allergy Status Severity Reaction(s) Onset Inactive Treating Comm ents Source Name Type Date Date Clinician No Known DA Active U [facility] Allergie 09-09 Corp[facility] s 00:00: [place] 00 [facility] Center No Known DA Active U [facility] Allergie 09-09 Corpus s 00:00: [address] Adhesive Propensi Active 2015-03 Method i Tape-Siobhan ty to 04-01 st icones adverse 00:00: Hospita reaction 00 l s to drug No Known Propensi Active 2015-03 Method i Drug ty to 04-01 st Allergie adverse 00:00: Hospita s reaction 00 l s to drug NO KNOWN Drug Active Univers ALLERGIE Class ity of S [facility] Family History Family Member Diagnosis Comments Start Date Stop Date Source Natural mother [facility] Social History Social Habit Start Date Stop Date Quantity Comments Source History of tobacco Cigarette Smoker [facility] use Hospital Exposure to Not sure [facility] SARS-CoV-2 (event) Hospit al Cigarettes smoked 2020-10-30 2020-10-[address] current (pack per 00:00:00 00:00:00 Hospita l day) - Reported Cigarette 2020-10-30 2020-10-30 [facility] pack-years 00:00:00 00:00:00 Hospital Alcohol intake 2020-10-30 2020-10-30 Current [facility] 00:00:00 00:00:00 non-drinker of Hospital alcohol (finding) Tobacco use and 2020-05-30 2020-05-30 Never used Universit y of exposure 00:00:00 00:00:00 [facility] Tobacco Comment 2015-11-07 2015-11-07 QUIT-1981 Catholic 00:00:00 00:00:00 Hospital Sex Assigned At [birth year] Universit y of 00:00:00 00:00:00 [facility] Smoking Status Start Date Stop Date Source Unknown if ever smoked [facility] Former smoker 2020-10-30 00:00:00 2020-10-30 00:00:00 [facility] Never smoker [facility] Medications Ordered Filled Start Stop Current Ordering [...] 1[drp] QD 1 drop Me thodi (XALATAN) [address] 0.005 % 18:27: Hospita ophthalmic 07 l solution tamsulosin Yes .4mg QD Take 0.4 Met hodi (FLOMAX) 8-[address] 0.4 mg 18:27: mouth Hospita capsule 07 daily with l dinner. simvastatin Yes 40mg QD Take 40 mg Methodi (ZOCOR) [address] MG tablet 18:27: nightly. Hosp darius 07 l amLODIPine Yes 10mg Q.5D Take 10 mg M ethodi (NORVASC) [address] 10 MG 18:25: (two) Hospita tablet 17 times a l day. glimepiride Yes 4mg Q.5D Take 4 mg M ethodi (AMARYL) [address] MG tablet 18:25: (two) Hospita 17 times a l day. amLODIPine Yes 10mg Take 10 mg U nivers 10 mg 3-10 by mouth ity of tablet 19:30: daily. [place] [address] Medical Branch ciprofloxac Yes 500mg Take 500 U nivers in (CIPRO 3-10 mg by ity of XR) 500 mg 19:30: mouth [place] 24 hr 17 daily. Medical tablet Branch donepeziL 5 Yes 5mg Take 5 mg U nivers mg tablet 3-10 by mouth ity of 19:30: at [place] [address] bedtime. Medical Branch apixaban Yes 5mg Take 5 mg Univ ers (ELIQUIS) 5 3-10 by mouth 2 it y of mg tablet 19:30: (two) [place] [address] times Medical daily. Branch glimepiride Yes 4mg Take 4 mg U nivers 4 mg tablet 3-10 by mouth ity of 19:30: daily with [place] [address] breakfast. Medical Branch memantine 5 Yes 5mg Take 5 mg U nivers mg tablet 3-10 by mouth ity of 19:30: daily. [place] [address] Medical Branch omeprazole Yes 40mg Take 40 mg U nivers 40 mg 3-10 by mouth ity of capsule 19:30: daily. [place] [address] Medical Branch simvastatin Yes 40mg Take 40 mg Univers 40 mg 3-10 by mouth ity of tablet 19:30: at [place] [address] bedtime. Medical Branch simethicone Yes PRN, [facility] (GAS RELIEF 3-10 Starting ity of (SIMETHICON 15:26: Fri [place] E)) 40 00 05/31/20 at Medical mg/0.6 mL 0926, [place] drops Until Discontinu ed, Routine, Intra-op lactated 2020- No 1000mL at 42 Unive rs ringers IV 3-10 03-10 mL/hr, ity of infusion 14:30: 14:30 1,000 mL, Vimal as 1,000 mL 00 :00 IV Medical Infusion, Branch ONCE, 1 dose, Fri05/31/20 at 0830, Routine, DSU Pre-op iohexol 2020- No 120mL 120 mL, Unive rs (OMNIPAQUE -12 02-12 Intravenou it y of 350 20:00: 19:50 s, ONCE, 1 [place] BULK-150 00 :00 dose, Fri Medica l mL) 05/05/20 at Branch injection 1400, 120 mL Routine furosemide 2019-03- No [id number] 20mg QD Take 1 Methodi (LASIX) 20 0-20 10-21 tablet (20 st mg tablet 00:00: 04:59 mg total) Ho spita 00 :00 by mouth l daily. memantine 0 Yes 5mg Q.5D 5 mg 2 Method i (NAMENDA) 5 5-22 (two) st MG tablet 00:00: times a Hospi ta day. l donepezil 0 Yes 10mg QD Take 10 mg Me thodi (ARICEPT) 5 6-[address] MG tablet 00:00: nightly. Hosp darius 00 l Simvastatin Simvastatin Yes Lilly [address] [facility] Tamsulosin Tamsulosin Yes Lilly [address] HCl HCl [facility] Amlodipine Amlodipine Yes Lilly [address] Besylate Besylate Trisha [place] [facility] Memantine Memantine Yes Lilly [address] HCl HCl [place] [facility] Donepezil Donepezil Yes Lilly [address] HCl HCl [place] at bedtime [facility] Eliquis 5 Eliquis 5 Yes Lilly one [facility] mg mg [facility] No known No Univers medications [facility] Glimepiride Glimepiride Yes Lilly [address] [facility] Trisha with [facility] - breakfast Memoria or the l first main Outpati meal of ent the day Clinics Vital Signs Vital Name Observation Time Observation Value Comments Source Systolic blood 2020-05-31 16:45:00 135 mm[Hg] Univer sity pressure [facility] Diastolic blood 2020-05-31 16:45:00 79 mm[Hg] [facility] Heart rate 2020-05-31 16:45:00 57 /min [facility] Respiratory rate 2020-05-31 16:45:00 29 /min [facility] Oxygen saturation in 2020-05-31 16:45:00 98 /min [facility] Arterial blood by [facility] Pulse oximetry Branch Body temperature 2020-05-31 15:45:00 36 Purvi [facility] Body height 2020-05-23 18:20:00 170.2 cm [facility] Body weight 2020-05-23 18:20:00 86.6 kg [facility] BMI 2020-05-23 18:20:00 29.89 kg/m2 [facility] Systolic blood 2020-05-31 16:45:00 135 mm[Hg] Univer sity of pressure [facility] Diastolic blood 2020-05-31 16:45:00 79 mm[Hg] Unive rsity [facility] Heart rate 2020-05-31 16:45:00 57 /min [facility] Respiratory rate 2020-05-31 16:45:00 29 /min [facility] Oxygen saturation in 2020-05-31 16:45:00 98 /min University Arterial blood by [facility] Pulse oximetry [place] Body temperature 2020-05-31 15:45:00 36 Purvi [facility] Body height 2020-05-23 18:20:00 170.2 cm [facility] Body weight 2020-05-23 18:20:00 86.6 kg [facility] BMI 2020-05-23 18:20:00 29.89 kg/m2 [facility] Systolic blood 2020-10-30 18:17:00 131 mm[Hg] Method [facility] pressure Diastolic blood 2020-10-30 18:17:00 74 mm[Hg] [facility] pressure Heart rate 2020-10-30 18:17:00 67 /min [facility] Body temperature 2020-10-30 18:17:00 36.06 Purvi [facility] Respiratory rate 2020-10-30 18:17:00 20 /min [facility] Body weight 2020-10-30 18:17:00 87.952 kg [facility] BMI 2020-10-30 18:17:00 30.37 kg/m2 [facility] Oxygen saturation in 2020-10-30 18:17:00 97 /min [facility] Arterial blood by Pulse oximetry Body height 2020-05-30 16:43:00 170.2 cm [facility] Procedures Procedure Date / Time Performed Performing Clinician Rakesh spencer ECG 12-LEAD 2020-10-30 17:19:13 Yariel Garcia HEMOGLOBIN A1C 2020-10-30 16:56:00 [facility] 2020-10-30 16:56:00 Yariel Garcia [facility] Arnie CREATININE LEVEL 2020-10-30 16:56:00 Yariel Garcia [facility] Arnie LIPID PANEL 2020-10-30 16:56:00 [facility] ESTIMATED GFR 2020-10-30 16:56:00 Yariel Garcia [facility] Arnie EGD (ENDO) 2020-05-31 15:20:34 Markell, [facility] o f [place] Medical Branch POCT GLUCOSE(AGE 2020-05-31 14:32:00 Josefa [facility] >30DAYS) Medical Branch POCT GLUCOSE 2020-05-31 14:31:00 Khadijah Barron [facility] (AUTOMATED) Medical Branch COVID-19 (ID NOW RAPID 2020-05-30 15:33:00 Khadijah Barron [facility] TESTING) Medical Branch ASSIGNMENT OF BENEFITS 2020-05-30 15:20:00 Doctor Unassigned, No [facility] DSU PRE-OP 2020-05-17 06:01:00 Doctor Unassigned, No [facility] CT ABDOMEN PELVIS W WO 2020-05-05 19:52:32 Khadijah Barron [facility] CONTRAST Medical Branch NOTICE OF PRIVACY 2020-05-05 19:20:27 Doctor Unassigned, No [facility] PRACTICES [facility] Medical [place] CONSENT/REFUSAL FOR 2020-05-05 19:20:00 [facility] Medical Branch TREATMENT ASSIGNMENT OF BENEFITS 2020-05-05 19:19:29 Doctor Unassigned, No [facility] Branch TTE COMPLETE, W 2020-01-12 17:19:36 Mustapha Jama Ho spital CONTRAST, W DOPPLER ([id number]) Plan of Care Planned Activity Planned Date Details Comments Source Future Scheduled Test 65+ PNEUMOCOCCAL [facility] VACCINE (1 of 2 - PPSV23) [code = 65+ PNEUMOCOCCAL VACCINE (1 of 2 - PPSV23)] Future Scheduled Test DIABETES: RETINAL EYE [facility] EXAM [code = DIABETES: RETINAL EYE EXAM] Future Scheduled Test DIABETIC FOOT EXAM [facility] [code = DIABETIC FOOT EXAM] Future Scheduled Test COVID-19 VACCINE (1) [facility] [code = COVID-19 VACCINE (1)] Future Scheduled Test Hepatitis C screening [facility] (procedure) [code = 182621614] Future Scheduled Test SHINGLES VACCINES (#1) [facility] [code = SHINGLES VACCINES (#1)] Future Scheduled Test INFLUENZA VACCINE [code [facility] = INFLUENZA VACCINE] Encounters Start End Encounter Admission Attending Care Care Encounter Source Date/Time Date/Time Type Type Clinicians Facility Department ID 2021-04-[address] [facility] [id number] 12:38:55 [id number] [facility] 2021-04-[address] [facility] [id number] 12:14:27 [id number] [facility] 2021-04-[address] [facility] [id number] 12:09:09 [id number] [facility] 2021-04-[facility] [id number] 11:54:38 [id number] [facility] 2021-04-[facility] [id number] 11:54:14 23051 [facility] 2021-04-[address] [facility] [id number] 11:52:55 [id number] [facility] 2021-04-[address] [facility] [id number] 11:48:25 [id number] [facility] 2021-04-[address] [facility] [id number] 11:45:22 [id number] [facility] 2021-01-21 Outpatient R PJ [facility] [id number] Univers 02:23:09 KHADIJAH Spencer [facility] 2020-10-30 2020-10-30 Office Jose, 1.2.840.1 [id number] Methodi 13:05:44 13:48:26 Visit Yariel 00150.1.[address] Arnie 3.430.2.7 Hospit a .3.769525 l .8 2020-10-30 2020-10-30 Lab Jose, 1.2.840.1 [id number] Methodi 11:41:56 11:46:[address] Arnie 3.430.2.7 Hospit a .3.205074 l .8 2020-10-30 2020-10-30 Orders Hannah, 1.2.840.1 [id number] Methodi 00:00:00 00:00:00 Only Nicole [address]303.1.[address] 3.430.2.7 Hospit a .3.128358 l .8 2020-10-30 2020-10-30 Travel 1.2.840.1 1.2.518.527 [id number] [id number] Methodi 00:00:00 00:00:[address] 3.430.2.7 0.2.7.3.698 Ho spita .3.850705 084.8 l .8 2020-10-30 2020-10-30 Orders Génesis Uribe 1.2.840.1 [id number] Methodi 00:00:00 00:00:[address] 3.430.2.7 Hospit a .3.652317 l .8 2020-10-19 2020-10-19 Telephone Jose, 1.2.840.1 [id number] Methodi 00:00:00 00:00:[address] Arnie 3.430.2.7 Hospit a .3.195859 l .8 2020-09-09 2020-09-10 Emergency EM Prerna, [facility] [id number] [facility] 22:27:00 01:40:00 Darci [id number] [facility] 2020-08-02 2020-08-02 Orders Mccormack, 1.2.840.1 [id number] Methodi 00:00:00 00:00:00 Only Polo 42970.1.[address] 3.430.2.7 Hospit a .3.280259 l .8 2020-05-31 2020-05-31 [facility] 1.2.840.114 [id number] 08:08:00 11:30:00 Encounter Khadijah spencerton 350.1.13.10 [place] 4.2.7.2.686 Surgical [id number] [place] [address] 2020-05-31 2020-05-31 [facility] 1.2.840.114 8 [id number] [facility] 08:08:00 11:30:00 Encounter Khadijah spencer [place] 350.1.13.10 ity of [place] 4[place]2.7.2.686 [place] Surgical [id number] [place] [id number] [place] 2020-05-30 2020-05-30 Office Jama, 1.2.840.1 [id number] Methodi 10:37:18 14:36:14 Visit Mustapha Traylor 41265.1.[address] 3.430.2.7 Hospit a .3.241626 l .8 2020-05-30 2020-05-30 Laboratory Only, [facility] 1.2.840.114 8 [id number] 09:23:40 09:38:40 Only Test [place] 350.1.13.10 [place] 4.2.7.2.686 [place] [id number] [facility] 2020-05-30 2020-05-30 Laboratory Only, [facility] Test [facility] 1.2.840. 114 [id number] [facility] 09:23:40 09:38:40 Only Khadijah Barron [place] 350.1.1 3.10 ity of [place] 4.2.7.2.686 [place] [id number] [place] [address] Branch 2020-05-30 2020-05-30 Outpatient R [facility] [id number] Univers 09:15:00 09:15:00 [id number] ity of [facility] 2020-05-30 2020-05-30 Outpatient R [facility] [id number] Univers 09:15:00 09:15:00 KHADIJAH Spencer o f [facility] [place] [facility] 2020-05-30 2020-05-30 Orders Doctor MIRI 1.2.840.114 [id number] Univers 00:00:00 00:00:00 Only Unassigned, FERNANDA 350.1.13.10 ity of [facility] 4.2.7.2.686 [place] as [id number] [facility] 009 Branch 2020-05-30 2020-05-30 Travel 1.2.840.1 1.2.418.478 [id number] Methodi 00:00:00 00:00:[address] 3.430.2.7 0.2.7.3.698 Ho spita .3.718577 084.8 l .8 2020-05-22 2020-05-22 Telephone Wiley 1.2.840.1 [id number] [id number] Methodi 00:00:00 00:00:00 Must[address] Traylor [address] 3.430.2.7 Hospit a .3.962877 l .8 2020-05-22 2020-05-22 Travel 1.2.840.1 1.2.812.343 8812 [id number] Methodi 00:00:00 00:00:[address] 3.430.2.7 0.2.7.3.698 Ho spita .3.897148 084.8 l .8 2020-05-05 2020-05-05 [facility] 1.2.840.114 8 [id number] Univers 13:25:43 23:59:00 Khadijah Bowen 350.1.13.10 ity of [place] 4.2.7.2.686 [place] [facility] [id number] [facility] 801 Branch 2020-05-05 2020-05-05 Outpatient R PJ [facility] [id number] Univers 00:00:00 00:00:00 KHADIJAH Spencer [facility] 2020-05-03 2020-05-03 Travel 1.2.840.1 1.2.591.251 [id number] Methodi 00:00:00 00:00:[address] 3.430.2.7 0.2.7.3.698 Ho spita .3.570851 084.8 l .8 2020-01-11 2020-01-11 Office Jama, 1.2.840.1 [id number] Methodi 13:06:12 15:55:20 Visit Mustapha Traylor 22000.1.[address] 3.430.2.7 Hospit a .3.010582 l .8 2020-01-11 2020-01-11 Travel 1.2.840.1 1.2.130.133 [id number] Methodi 00:00:00 00:00:[address] 3.430.2.7 0.2.7.3.698 Ho spita .3.649725 084.8 l .8 2020-01-03 2020-01-03 Outpatient [facility] [id number] [facility] 00[facility]00 [facility] l Outpati ent Clinics 2019-12-03 2019-12-03 [facility] [id number] 14:15:00 14:15:00 t Specialty/U Karly kes - Specialty rology Memori a /Urology Clinic l Clinic Outpati ent Clinics Results Test Description Test Time Test Comments Results Result Comments Source ECG 12 lead 2020-10-31 13:18:29 Test Item Value Reference Range Interpretation Comme nts Ventricular rate (test code = 253) Atrial rate (test code = 255) TX interval (test code = 266) QRSD interval (test code = 260) QT interval (test code = 264) QTC interval (test code = 265) P axis 1 (test code = 267) QRS axis 1 (test code = 268) T wave axis (test code = 270) EKG impression (test code = 273) Normal sinus rhythm-Junctional ST depression, probably normal-Borderline ECG-In automated comparison with ECG of 26-JAN-2019 14:23,-Criteria for Inferior infarct are no longer present- Freida Medina-[id number] 01:25:00 Test Item Value Reference Range Interpretation [...] es of Biotin. - XR CHEST 1 [id number] 00:08:00 [facility] 1940 Sex: M Patient Name: ANASTACIO GOMEZ Unit No: [id number] EXAMS: CPT CODE: [id number] XR CHEST 1 V 80998 Reason: chest pain PROCEDURE INFORM ATION: Exam: [...] RESULT CODE: CVR Elec tronically Signed by Miri Mckeon MD VRALEJANDRA on 09/10/2020 at 0008 Reported and signed by: Miri Mckeon MD VRAD CC: Darci Graff DO Technologist: KARI KEE Trscrpt Dt/ (7)VRAD.VR Orig Print D/T: S: 09/10/2020 (7) [place] FSED NAME: ANASTACIO GOMEZ [address] [place] [address] PHYS: MICK.[email or web address] - Prerna,[place] [address] : 1940 AGE: 80 SEX: M LOC: D.NER PHONE #: [phone] EXAM DATE: 09/09/2020 STATUS: PRE ER FAX #: RAD NO: DC Dt: PAGE 1 Signed ReportBASIC METABOLIC [id number] 23:14:00 Test Item Value Reference Range Interpretation [...] MG/DL 8.7-10.5 L = CA) HEPATIC FUNCTION [id number] 23:14:00 Test Item Value Reference Range Interpretation [...] 50-136 N TOTAL (test code = ALKP) [id number] 23:14:00 Test Item Value Reference Range Interpretation Comments LIPASE (test code = LIP) 376 Units/L 73-393 N [id number] 23:14:00 Test Item Value Reference Range Interpretation [...] is taking high dos es of Biotin. BASIC METABOLIC [id number] 23:05:00 Test Item Value Reference Range Interpretation [...] MG/DL 8.7-10.5 L = CA) HEPATIC FUNCTION [id number] 23:05:00 Test Item Value Reference Range Interpretation [...] TOTAL (test Units/L 50-136 code = ALKP) [id number] 23:05:00 Test Item Value Reference Range Interpretation Comments LIPASE (test code = LIP) Units/L 73-393 [id number] 23:05:00 Test Item Value Reference Range Interpretation Comments TROPONIN-I (test code = TROPI) NG/ML 0.00-0.06 CBC W/AUTO [id number] 22:57:00 Test Item Value Reference Range Interpretation [...] = BA#) 0.08 x10 3/uL 0.0-0.2 N POCT GLUCOSE (AUTOMATED)2020-05-31 14:34:27 Test Item Value Reference Range Interpretation Comments POCT GLU (test code = [id number]) 211 mg/dL 70-110 H Lab Interpretation (test code = Abnormal 90885-5) [facility] [id number] 14:32:00 Test Item Value Reference Range Interpretation Comments POCT Glu (age>30days) (test code = 211 mg/dL 70-110 A 3342) Lab Interpretation (test code = Abnormal 61303-4) [facility]ID NOW RAPID TESTING)2020-05-30 15:59:59 Test Item Value Reference Range Interpretation Comments SARS-CoV-2 Rapid ID NOW Not Detected Not Detected (test code = 40019-2) ERASTO (test code = ERASTO) ID NOW COVID-19 Assay is an isothermal nucleic acid amplification test intended for the qualitative detection of nucleic acid from SARS-CoV-2 viral RNA in nasopharyngeal (DIRECTOR OF SAFETY) specimens. It is used under Emergency Use Authorization (EUA) by FDA. The limit of detection (LOD) of the assay is 125 Genome Equivalents/mL. A positive result is indicative of the presence of SARS-CoV-2 RNA. ?Clinical correlation with patient history and other diagnostic information is necessary to determine patient infection status. A negative (Not Detected) result does not preclude SARS-CoV-2 infection. In patients with clinical symptoms and other tests that are consistent with SARS-CoV-2 infection, negative results should be treated as presumptive negative and a new specimen should be tested with alternative PCR molecular test. Invalid: Please collect a new specimen for repeat patient testing if clinically indicated. Lab Interpretation Normal (test code = 18705-4) [facility] A[facility]OM[facility] PELVIS W WO [id number] 21:34:19 1. ?Small focal gastric wall abnormality with 1.1 cm structure protrudingexophytically from the posterior aspect of the distal gastric body into thelesser sac (1.1 cm). Considerations are a small gastric wall mass(including a submucosal mass). Focal ulceration is considered less likelywith no surrounding wall thickening or inflammatory change. 2. ?Cholelithiasis versus small amount of layering sludge within thegallbladder. 3. ?Bilateral adrenal nodules and nodular thickening. Characteristics oflarger nodules compatible with adenomas. 4. ?Mild prostatomegaly.EXAM: CT ABDOMEN PELVIS W WO CONTRAST HISTORY: 79 years -old Male with ?Upper abdominal pain with weight loss. TECHNIQUE: Contrast - IV contrast was given, no oral contrast was givenNoncontrast phase - abdomen including all of liverPortal venous phase - abdomen and pelvisReconstructions - coronal and sagittal planes COMPARISON: Upper GI series, 10/01/2017. FINDINGS:Statements: None. Thoracic: Mild dependent atelectatic change. Cardiac left atrialenlargement. Sternotomy wires partially visualized. Hepatobiliary: The liver is unremarkable without focal lesion. Small amountof layering hyperattenuating material in the dependent gallbladder like lyrepresents small stones versus sludge. No biliary dilation. Pancreas: No abnormality identified inthe pancreas. Spleen: No abnormality identified in the spleen. Single calcification inthe spleen mayrepresent a granuloma. Adrenals: Both nodular thickening and measurable bilateral adrenal nodules.Largest on the right measures 1.9 cm, 8:39, and largest on left measures1.7 cm, 8:43. Both of these larger nodules demonstrate intrinsic lowdensity compatible with adenomas. Genitourinary: Symmetric enhancement. A subcentimeter hypoattenuatingwell- defined focus at each kidney, too small to characterize but likelyrepresenting small cysts. Scattered areas of focal cortical scarring arepresent. No hydroneph rosis. The bladder is unremarkable. Mildprostatomegaly. Gastrointestinal:Small structure protrudes into the lesser sac from the posterior aspect ofthe distal gastric body. This structure measures 1 cm x 1 cm x 1.1 cm,8:43. No surrounding inflammatory change. No evidence of bowel obstruction or perienteric inflammation. The appendixis normal. Sigmoid diverticulosis Vascular/Lymphatics: No enlarged lymph nodes by CT size criteria. Abdominalaorta is normal in caliber. Mild scattered calcified atheroscleroticplaque. MSK/Body Wall: No concerning bony lesion identified. 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 Tiny fat-containing umbilical hernia Peritoneum/Other: No extraluminal air. Noextraluminal fluid. [facility], Radiant Results Inft User - 05/05/2020 3:35 PM CSTEXAM: CT ABDOMEN PELVISW WO CONTRASTHISTORY: 79 years - old Male with Upper abdominal pain with weight loss.TECHNIQUE: Contrast - IV contrast was given, no oral contrast was givenNoncontrast phase - abdomen including all of liverPortal venous phase - abdomen and pelvisReconstructions - coronal and sagittal planesCOMPARISON:Upper GI series, 10/01/2017.FINDINGS:Statements: None.Thoracic: Mild dependent atelectatic change. Cardiac left atrialenlargement. Sternotomy wires partially visualized.Hepatobiliary: The liver is unremarkable without focal lesion. Small amountof layering hyperattenuating material in the dependent gallbladder likelyrepresents small stones versus sludge. No biliary dilation.Pancreas: No abnormality identified in the pancreas.Spleen: No abnormality identified in the spleen. Single calcification inthe spleen may represent a granuloma.Adrenals: Both nodular thickening and measurable bilateral adrenal nodules.Largest on the right measures 1.9 cm, 8:39, and largest on left measures1.7 cm, 8:43. Both of these larger nodules demonstrate intrinsic lowdensity compatible with adenomas.Genitourinary: Symmetric enhancement. A subcentimeter hypoattenuatingwell-defined focus at each kidney, too small to characterize but likelyrepresenting small cysts. Scattered areas of focal cortical scarring arepresent. No hydronephrosis. The bladder is unremarkable. Mildprostatomegaly.Gastrointestinal:Small structure protrudes into the lesser sac from the posterior aspect ofthe distal gastric body. This structure measures 1 cm x 1 cm x 1.1 cm,8:43. No surrounding inflammatory change.No evidence of bowel obstruction or perienteric inflammation. The appendixis normal. Sigmoid diverticulosisVascular/Lymphatics: No enlargedlymph nodes by CT size criteria. Abdominalaorta is normal in caliber. Mild scattered calcified athero scleroticplaque.MSK/Body Wall: No concerning bony lesion identified. 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 Tiny fat-containing umbilical herniaPeritoneum/Other: No extraluminal air. No extraluminal fluid.IMPRESSION1. Small focal gastric wall abnormality with 1.1 cm structure protrud ingexophytically from the posterior aspect of the distal gastric body into thelesser sac (1.1 cm). Considerations are a small gastric wall mass(including a submucosal mass). Focal ulceration is considered less likelywith no surrounding wall thickening or inflammatory change.2. Cholelithiasis versus small amount of layering sludge within thegallbladder.3. Bilateral adrenal nodules and nodular thickening. Characteristics oflarger nodules compatible with adenomas.4. Mild prostatomegaly.[facility]
[2021-05-15] MEDS ORDERED: MORPHINE 2 MG/ML SYR ONE ×2 (15:38→17:13)
[2021-05-15] MEDS ORDERED: ASPIRIN EC 81 MG TAB PO ONE (15:38)
[2021-05-15 15:48] LABS: Absolute Lymphocytes (CBC) 0.6 K/uL (0.7-4.9); Hematocrit 41.5 % (39.6-49.0); Lymphocytes % 4.9 % (15.3-44.8); MPV 8.5 fL (7.6-11.3); RBC Red Blood Cell Count 4.57 M/uL (4.33-5.43)
--- NOTE | 2021-05-15 15:51 | RAD REPORT ---
EXAM DESCRIPTION: RAD - Chest Single View - 05/15/2021 3:41 pm CLINICAL HISTORY: CHEST PAIN COMPARISON: Single-view chest November 2018 TECHNIQUE: AP portable chest image was obtained 05/15/2021 3:41 pm . FINDINGS: Lung volumes are very low accentuating interstitial pattern. Heart size and vasculature fa ll within normal limits for a low lung volume portable study. No peripheral mass or consolidation. Mi nimal interstitial edema or infiltrate could be masked. Sternotomy wires are in place. No measurable pleural effusion and no pneumothorax. No acute bony abno rmality seen. No acute aortic findings suspected. IMPRESSION: Limited study without acute cardiopulmonary finding Low lung volumes accentuate the interstitial pattern potentially masking minimal edema or infiltrate.
[2021-05-15 15:55] LABS: Protime INR 1.09
[2021-05-15 16:06] LABS: Albumin 4.4 g/dL (3.4-5.0); Bilirubin Direct 0.2 mg/dL (0-0.2); Bilirubin Total 0.6 mg/dL (0.2-1.0); Magnesium 2.1 mg/dL (1.8-2.4); Potassium 3.6 mmol/L (3.5-5.1); Protein, Total 7.6 g/dL (6.4-8.2)
[2021-05-15 16:22] LABS: Troponin High Sensitivity 611.7 pg/mL (<58.9)
[2021-05-15 16:47] LABS: Blood Morphology Comment NOT SEEN (NOT SEEN); Platelet Estimate ADEQ; White Blood Cell Scan OK (OK)
--- NOTE | 2021-05-15 16:52 | EDPHYS ---
Physician Documentation [facility] Name: Herb Greco Jr Age: 80 yrs Sex: Male : 1940 Arrival Date: 05/15/2021 Time: 13:30 Bed 24 Private MD: Rober Guillaume ED Physician Kathy Mishra HPI: 05/15 15:20 This 80 yrs old Male presents to ER via Ambulatory with complaints of Chest cp Pain. 15:20 The patient or guardian reports chest pain that is located primarily in the substernal cp area. 15:20 Onset: today. The pain does not radiate. The chest pain is described as a pressure. cp Duration: The patient or guardian reports a single episode, that is still ongoing, but improving. Patient reports he started having chest pain while mowing yard today. Patient reports history of stent and cardiac bypass surgery in the past. Historical: - Allergies: 14:22 No Known Allergies; ap3 - Home Meds: 16:38 metformin 1,000 mg Oral tab 1 tab 2 times per day [Active]; amlodipine 10 mg tab 1 tab ss7 once daily [Active]; tamsulosin 0.4 mg Oral cp24 1 cap once daily [Active]; memantine 5 mg Oral tab 2 tabs 2 times per day [Active]; simvastatin 40 mg Oral tab 1 tab once daily [Active]; glimepiride 4 mg Oral tab 1 tab once daily [Active]; furosemide 20 mg Oral tab 1 tab once daily [Active]; donepezil 23 mg oral tab 1 tab once daily [Active]; Eliquis 5 mg Oral tab 1 tab daily [Active]; omeprazole 40 mg Oral cpDR 1 cap once daily [Active]; gabapentin 400 mg oral cap [Active]; dicyclomine 20 mg Oral tab [Active]; Aspir-81 81 mg Oral TbEC 1 tab once daily [Active]; - PMHx: 14:22 Diabetes - NIDDM; Hypertension; Alzheimers; ap3 - Immunization history:: Client reports receiving the 2nd dose of the Covid vaccine, Flu vaccine is not up to date. - Social history:: Smoking status: Patient denies any tobacco usage or history of. ROS: 15:25 Constitutional: Negative for body aches, chills, fever, poor PO intake. cp 15:25 Eyes: Negative for injury, pain, redness, and discharge. cp 15:25 ENT: Negative for ear pain, sore throat, difficulty swallowing, difficulty handling secretions. 15:25 Cardiovascular: Positive for chest pain, Negative for edema, palpitations. 15:25 Respiratory: Negative for cough, shortness of breath, wheezing. 15:25 Abdomen/GI: Negative for abdominal pain, nausea, vomiting, and diarrhea. 15:25 Back: Negative for radiated pain. 15:25 Neuro: Negative for altered mental status, headache, syncope, weakness. 15:25 All other systems are negative. Exam: 14:33 ECG was reviewed by the Attending Physician. cp 15:30 Constitutional: The patient appears in no acute distress, alert, awake, comfortable, cp non-toxic, well developed, well nourished. 15:30 Head/Face: Normocephalic, atraumatic. cp 15:30 Eyes: Periorbital structures: appear normal, Pupils: equal, round, and reactive to light and accomodation, Extraocular movements: intact throughout, Conjunctiva: normal, no exudate, no injection, Sclera: no appreciated abnormality, Lids and lashes: appear normal, bilaterally. 15:30 ENT: External ear(s): are unremarkable, Nose: is normal, Mouth: Lips: moist, Oral mucosa: moist, Posterior pharynx: Airway: no evidence of obstruction, patent. 15:30 Neck: ROM/movement: is normal, is supple, without pain, no range of motions limitations. 15:30 Chest/axilla: Inspection: normal, Palpation: is normal, no crepitus, no tenderness. 15:30 Cardiovascular: Rate: normal, Rhythm: regular, Edema: is not appreciated, JVD: is not appreciated. 15:30 Respiratory: the patient does not display signs of respiratory distress, Respirations: normal, no use of accessory muscles, no retractions, labored breathing, is not present, Breath sounds: are clear throughout, no decreased breath sounds, no stridor, no wheezing. 15:30 Abdomen/GI: Inspection: abdomen appears normal, Bowel sounds: active, all quadrants, Palpation: abdomen is soft and non-tender, in all quadrants. 15:30 Back: pain, is absent, ROM is normal. 15:30 Neuro: Orientation: no acute changes, per family, Mentation: no acute changes, per family, Motor: moves all fours, strength is normal, Sensation: is normal. Vital Signs: 14:20 BP 117 / 73; Pulse 67; Resp 17; Temp 97.9; Pulse Ox 97% ; Weight 84.82 kg; Height 5 ft. ap3 5 in. (165.10 cm); Pain 3/10; 15:27 BP 146 / 75; Pulse 68; Resp 18; Pulse Ox 100% on R/A; ss7 17:00 BP 140 / 73; Pulse 66; Resp 18; Pulse Ox 97% ; ss7 18:30 BP 130 / 66; Pulse 65; Resp 18; Pulse Ox 97% on R/A; ss7 20:48 BP 176 / 76; Pulse 80; Resp 18; Pulse Ox 97% on R/A; ss7 14:20 Body Mass Index 31.12 (84.82 kg, 165.10 cm) ap3 MDM: 15:22 Patient medically screened. cp 17:00 Data reviewed: vital signs, nurses notes, lab test result(s), EKG, radiologic studies, cp plain films. 17:00 The patient was given aspirin in the Emergency Department. Test interpretation: by ED cp physician or midlevel provider: ECG, plain radiologic studies. Physician consultation: Rober Guillaume MD was called at 16:45, was contacted at 16:45, regarding admission, to the telemetry unit. patient's condition. 05/15 15:17 Order name: Basic Metabolic Panel; Complete Time: 16:25 cp 05/15 16:25 Interpretation: Normal except: GLUC 267; GFR 57. cp 05/15 15:17 Order name: CBC with Diff; Complete Time: 16:48 cp 05/15 16:25 Interpretation: Normal except: WBC 11.70; KAMINI% 90.6; LYM% 4.9; NEUT A 10.6; LYMA 0.6. cp 05/15 15:17 Order name: LFT's; Complete Time: 16:25 cp 05/15 15:17 Order name: Magnesium; Complete Time: 16:25 cp 05/15 15:17 Order name: NT PRO-BNP; Complete Time: 16:25 cp 05/15 15:17 Order name: PT-INR; Complete Time: 16:25 cp 05/15 16:49 Interpretation: Normal except: PT 12.6. cp 05/15 15:17 Order name: Troponin HS; Complete Time: 16:25 cp 05/15 16:25 Interpretation: Abnormal: Troponin HS 611.70. cp 05/15 16:48 Order name: CBC Smear Scan; Complete Time: 16:48 EDNV 05/15 18:50 Order name: COVID-19 SARS RT PCR (Document "Date of Onset" if Symptomatic) ss 05/15 19:57 Order name: Basic Metabolic Panel EDNV 05/15 19:57 Order name: Basic Metabolic Panel EDNV 05/15 19:57 Order name: Troponin High Sensitivity EDNV 05/15 19:57 Order name: Troponin High Sensitivity EDNV 05/15 19:57 Order name: Troponin High Sensitivity EDNV 05/15 15:17 Order name: XRAY Chest (1 view); Complete Time: 16:25 cp 05/15 15:17 Order name: EKG; Complete Time: 15:18 cp 05/15 15:17 Order name: Cardiac monitoring; Complete Time: 15:30 cp 05/15 15:17 Order name: EKG - Nurse/Tech; Complete Time: 15:30 cp 05/15 19:57 Order name: Troponin High Sensitivity EDNV 05/15 19:57 Order name: 60g Consistent Carbohydrate (ADA 1800/2000) EDNV 05/15 19:57 Order name: EKG Electrocardiogram EDNV 05/15 19:57 Order name: EKG Electrocardiogram EDNV 05/15 19:57 Order name: EKG Electrocardiogram EDNV 05/15 19:57 Order name: EKG Electrocardiogram EDNV 05/15 19:57 Order name: CBC with Automated Diff EDNV 05/15 19:57 Order name: CBC with Automated Diff EDNV 05/15 15:17 Order name: IV Saline Lock; Complete Time: 15:30 cp 05/15 15:17 Order name: Labs collected and sent; Complete Time: 15:30 cp 05/15 15:17 Order name: O2 Per Protocol; Complete Time: 15:30 cp 05/15 15:17 Order name: O2 Sat Monitoring; Complete Time: 15:30 cp EC:33 Rate is 64 beats/min. Rhythm is regular. TX interval is normal. QRS interval is normal. cp QT interval is normal. Interpreted by me. Reviewed by me. Administered Medications: 15:43 Drug: Aspirin Chewable Tablet 162 mg Route: PO; ss7 16:42 Follow up: Response: No adverse reaction ss7 15:43 Drug: morphine 2 mg Route: IVP; Site: right antecubital; ss7 16:41 Follow up: Response: No adverse reaction ss7 16:36 CANCELLED (Physician Discretion): Lovenox (enoxaparin) 1 mg/kg Sub-Q once cp 17:12 Drug: morphine 2 mg Route: IVP; Site: right antecubital; tf1 18:54 Follow up: Response: No adverse reaction ss7 Disposition Summary: 05/15/21 16:51 Hospitalization Ordered Hospitalization Status: Inpatient Admission cp Provider: Rober Guillaume cp Location: Telemetry/MedSurg (Inpatient) cp Condition: Stable cp Problem: new cp Symptoms: have improved cp Bed/Room Type: Standard cp Room Assignment: 206(05/15/21 20:41) cg Diagnosis - Non ST elevation NV cp Forms: - Medication Reconciliation Form cp - SBAR form cp Signatures: Dispatcher [employer] EDTra Gutierrez PA PA cp Ira Yo RN RN cg Alicia Lyles RN RN ap3 Fady Solorzano RN RN tf1 Radha Mc RN RN ss7 Corrections: (The following items were deleted from the chart) 16:36 16:33 Lovenox (enoxaparin) 1 mg/kg Sub-Q once ordered. cp cp 20:41 16:51 cp cg
--- NOTE | 2021-05-15 16:52 | ER ---
[facility] Name: Herb Greco Jr Age: 80 yrs Sex: Male : 1940 Arrival Date: 05/15/2021 Time: 13:30 Bed 24 Private MD: Rober Guillaume Diagnosis: Non ST elevation [place] Presentation: 05/15 14:20 Chief complaint: Patient states: he started having chest pain at approx 1330 this ap3 afternoon, while mowing the lawn. Patient denies having this pain before. Coronavirus screen: At this time, the client does not indicate any symptoms associated with coronavirus-19. Ebola Screen: No symptoms or risks identified at this time. Initial Sepsis Screen: Does the patient meet any 2 criteria? No. Patient's initial sepsis screen is negative. Does the patient have a suspected source of infection? No. Patient's initial sepsis screen is negative. Risk Assessment: Do you want to hurt yourself or someone else? Patient reports no desire to harm self or others. Onset of symptoms was May 15, 2021 at 13:30. 14:20 Method Of Arrival: Ambulatory ap3 14:20 Acuity: LIZZ 3 ap3 Triage Assessment: 14:22 General: Appears in no apparent distress. Behavior is calm, cooperative. Pain: ap3 Complains of pain in anterior aspect of left upper chest Pain does not radiate. Pain currently is 3 out of 10 on a pain scale. Pain began suddenly, 1 hour ago. Neuro: Level of Consciousness is awake, alert, obeys commands, Oriented to person, place, time, situation, Gait is steady, Speech is normal. Cardiovascular: Reports chest pain. Respiratory: Airway is patent Respiratory effort is even, unlabored. Historical: - Allergies: 14:22 No Known Allergies; ap3 - Home Meds: 16:38 metformin 1,000 mg Oral tab 1 tab 2 times per day [Active]; amlodipine 10 mg tab 1 tab ss7 once daily [Active]; tamsulosin 0.4 mg Oral cp24 1 cap once daily [Active]; memantine 5 mg Oral tab 2 tabs 2 times per day [Active]; simvastatin 40 mg Oral tab 1 tab once daily [Active]; glimepiride 4 mg Oral tab 1 tab once daily [Active]; furosemide 20 mg Oral tab 1 tab once daily [Active]; donepezil 23 mg oral tab 1 tab once daily [Active]; Eliquis 5 mg Oral tab 1 tab daily [Active]; omeprazole 40 mg Oral cpDR 1 cap once daily [Active]; gabapentin 400 mg oral cap [Active]; dicyclomine 20 mg Oral tab [Active]; Aspir-81 81 mg Oral TbEC 1 tab once daily [Active]; - PMHx: 14:22 Diabetes - NIDDM; Hypertension; Alzheimers; ap3 - Immunization history:: Client reports receiving the 2nd dose of the Covid vaccine, Flu vaccine is not up to date. - Social history:: Smoking status: Patient denies any tobacco usage or history of. Screenin:23 Abuse screen: Denies threats or abuse. Nutritional screening: No deficits noted. ap3 Tuberculosis screening: No symptoms or risk factors identified. 15:27 Fall Risk IV access (20 points). ss7 Assessment: 15:27 Pain: Complains of pain in chest. Cardiovascular: Heart tones S1 S2. Respiratory: ss7 Breath sounds are clear bilaterally. GI: No deficits noted. Bowel sounds present X 4 quads. : No deficits noted. EENT: No deficits noted. Derm: No deficits noted. Musculoskeletal: No deficits noted. 20:49 Reassessment: Pt admitted to 206. Attempt to call report. States they will call us back ss7 as nurse has not been notified of assignment. Vital Signs: 14:20 BP 117 / 73; Pulse 67; Resp 17; Temp 97.9; Pulse Ox 97% ; Weight 84.82 kg; Height 5 ft. ap3 5 in. (165.10 cm); Pain 3/10; 15:27 BP 146 / 75; Pulse 68; Resp 18; Pulse Ox 100% on R/A; ss7 17:00 BP 140 / 73; Pulse 66; Resp 18; Pulse Ox 97% ; ss7 18:30 BP 130 / 66; Pulse 65; Resp 18; Pulse Ox 97% on R/A; ss7 20:48 BP 176 / 76; Pulse 80; Resp 18; Pulse Ox 97% on R/A; ss7 14:20 Body Mass Index 31.12 (84.82 kg, 165.10 cm) ap3 ED Course: 13:30 Patient arrived in ED. as 13:30 Rober Guillaume MD is Private Physician. as 14:22 Triage completed. ap3 14:24 Arm band placed on right wrist. ap3 14:24 Patient maintains SpO2 saturation greater than 95% on room air. ap3 14:30 EKG done, by ED staff. ap3 15:17 Tra Melchor PA is PHCP. cp 15:17 Kathy Mihsra MD is Attending Physician. cp 15:26 Radha Mc, CHARLETTE is Primary Nurse. ss7 15:27 Patient has correct armband on for positive identification. Placed in gown. Bed in low ss7 position. Call light in reach. Side rails up X2. Adult w/ patient. hypercil core transformer assembler on. Pulse ox on. NIBP on. 15:27 No provider procedures requiring assistance completed. Inserted saline lock: 20 gauge ss7 in right antecubital area, using aseptic technique. 15:30 Basic Metabolic Panel Sent. ss7 15:31 CBC with Diff Sent. ss7 15:31 LFT's Sent. ss7 15:31 Magnesium Sent. ss7 15:31 NT PRO-BNP Sent. ss7 15:31 PT-INR Sent. ss7 15:31 Troponin HS Sent. ss7 15:41 XRAY Chest (1 view) In Process Unspecified. EDMS 16:50 Rober Guillaume MD is Hospitalizing Provider. cp 19:03 COVID-19 SARS RT PCR (Document "Date of Onset" if Symptomatic) Sent. ss7 19:14 Cellular Biologist paged at 19:14. mw2 19:40 initiated a transfer with Katty from [facility] [place]. [facility] denied mw2 due to capacity. 21:24 Report given to Hector Young on 2nd floor. ss7 21:52 Patient admitted, IV remains in place. ss7 Administered Medications: 15:43 Drug: Aspirin Chewable Tablet 162 mg Route: PO; ss7 16:42 Follow up: Response: No adverse reaction ss7 15:43 Drug: morphine 2 mg Route: IVP; Site: right antecubital; ss7 16:41 Follow up: Response: No adverse reaction ss7 16:36 CANCELLED (Physician Discretion): Lovenox (enoxaparin) 1 mg/kg Sub-Q once cp 17:12 Drug: morphine 2 mg Route: IVP; Site: right antecubital; tf1 18:54 Follow up: Response: No adverse reaction ss7 Outcome: 16:51 Decision to Hospitalize by Provider. cp 21:24 Admitted to Tele accompanied by tech. ss7 21:24 Condition: stable 21:52 Patient left the ED. ss7 Signatures: Dispatcher [employer] Radha Thompson Corey, PA PA cp Prokisch, Amanda RN RN ap3 Michelle Avilez mw2 Fady Solorzano RN RN tf1 Radha Mc RN RN ss7
[2021-05-15] MEDS ORDERED: ONDANSETRON 4 MG/2 ML VIAL IV PRN (19:54)
[2021-05-15] MEDS ORDERED: MORPHINE 2 MG/ML SYR IV PRN (19:54)
[2021-05-15] MEDS ORDERED: GLUCAGON 1 MG/VIAL IM PRN (19:56)
[2021-05-15] MEDS ORDERED: D50W 25 GM/50 ML SYRINGE IV PRN (19:56)
[2021-05-15] MEDS: INSULIN -REGULAR HUMAN 50 UNIT/0.5 ML ML SQ SCH (21:00)
[2021-05-16 02:05] VITALS: BMI 29.7
[2021-05-16 05:40] LABS: Absolute Lymphocytes (CBC) 1.2 K/uL (0.7-4.9); Hematocrit 38.5 % (39.6-49.0); Lymphocytes % 19.1 % (15.3-44.8); MPV 8.1 fL (7.6-11.3); RBC Red Blood Cell Count 4.23 M/uL (4.33-5.43)
[2021-05-16 05:51] LABS: Protime INR 1.06
[2021-05-16] MEDS ORDERED: METOPROLOL TAR 25 MG TAB PO SCH (06:00)
[2021-05-16 06:05] LABS: Potassium 3.4 mmol/L (3.5-5.1)
[2021-05-16 06:11] LABS: Troponin High Sensitivity 16174.1 pg/mL (<58.9)
[2021-05-16] MEDS: INSULIN -REGULAR HUMAN 50 UNIT/0.5 ML ML SQ SCH ×2 (07:30→12:37)
--- NOTE | 2021-05-16 07:59 | CON ---
Date of Consultation: 05/16/2021 Reason For Consultation: Non-ST elevation myocardial infarction. History Of Present Illness: Mr. Greco is a 80-year-old Latin-[place] male with history of CABG, hy pertension, diabetes, atrial fibrillation, dyslipidemia, neuropathy, and gastroesophageal reflux dise ase. He comes into the hospital with chest pain and elevated troponin consistent with non-ST elevati on myocardial infarction. He is pain-free now. He denied PND, orthopnea, pedal edema, palpitations, or syncope. Denied any nausea or vomiting or diaphoresis. Past Medical History: As stated above. Allergies: NONE. Review of Systems: Negative. Social History: Negative. Family History: Noncontributory. Physical Examination: Vital Signs: Stable. He was in sinus rhythm. He is afebrile. HEENT: Negative. Neck: Supple with no bruit, lymphadenopathy, JVD, or thyromegaly. Chest: Clear to auscultation and percussion. Cardiac: Revealed a regular rhythm and rate. No murmurs, gallops, or rubs. Abdomen: Benign. Extremities: Revealed no clubbing, cyanosis, or edema. Laboratory Data: His chest x-ray is negative. EKG is nonspecific. Glucose was 179. Troponin was 1 6,174. Impression And Plan: This is a 80-year-old with history of coronary artery bypass graft, status post non-ST segment elevation myocardial infarction, pain free now. Metoprolol was added to his regimen 25 mg b.i.d. Mr. Greco needs to have a left heart catheterization with selective coronary arteriogr am and check his PATTON and vein graft. However, he is taking Eliquis 5 mg b.i.d. I will set him up a s an outpatient for next week Friday. He will hold his Eliquis Friday or Friday. I will discuss t he case further with Dr. Guillaume. He needs to continue his home medication except for the Eliquis. Add metoprolol 25 mg b.i.d. His other problems include dementia. He takes memantine. He has dyslip idemia. He has diabetes, on metformin and glimepiride. He has a history of atrial fibrillation, wel l controlled rate carson. He has a history of neuropathy, gastroesophageal reflux disease, and hyperte nsion. All of those are stable at this point. NB/MODL Voice ID: [id number] Report ID: [id number]
[2021-05-16 08:38] VITALS: TEMP 97.1
[2021-05-16] MEDS ORDERED: FUROSEMIDE 20 MG TABLET PO SCH (09:00)
[2021-05-16] MEDS ORDERED: ASPIRIN EC 81 MG TAB PO SCH (09:00)
[2021-05-16] MEDS ORDERED: APIXABAN 5 MG TABLET PO SCH (09:00)
[2021-05-16] MEDS ORDERED: AMLODIPINE 10 MG TAB PO SCH (09:00)
[2021-05-16 12:16] VITALS: BP 119/65
[2021-05-16 12:39] VITALS: O2SAT 96
--- NOTE | 2021-05-17 07:37 | EKG ---
Test Date: 2021-05-15 Test Time: 14:26:43 Rn Ed: ALP MEASUREMENT RESULTS: Intervals: Rate: 64 MS: 192 QRSD: 88 QT: 420 QTc: 433 [place]: P: 58 MS: 192 QRS: -10 T: 83 INTERPRETIVE STATEMENTS: Normal sinus rhythm Normal ECG Compared to ECG 12/16/2018 21:11:00 No significant changes Electronically Signed On 05-17-21 07:35:57 QUENCHING CAR OPERATOR by Anish Lawrence
--- NOTE | 2021-05-17 08:14 | ECHO ---
HEIGHT: 5 ft 6 in WEIGHT: 184 lb 3.2 oz DATE OF STUDY: 05/16/[address]: Anish Lawrence MD 2-DIMENSIONAL: YES M.MODE: YES DOPPLER: YES COLOR FLOW: YES TDS: NO PORTABLE: NO DEFINITY: NO BUBBLE STUDY: NO DIAGNOSIS: NSTEMI CARDIAC HISTORY: CATHERIZATION:YES SURGERY: YES PROSTHETIC VALVE: NO PACEMAKER: NO MEASUREMENTS (cm) DIASTOLIC (NORMALS) SYSTOLIC (NORMALS) IVSd 1.0 (0.6-1.2) LA Diam 3.9 (1.9-4.0) LVEF 55-60% LVIDd 4.5 (3.5-5.7) LVIDs 3.6 (2.0-3.5) %FS % LVPWd 1.0 (0.6-1.2) Ao Diam 3.0 (2.0-3.7) 2 DIMENSIONAL ASSESSMENT: RIGHT ATRIUM: NORMAL LEFT ATRIUM: NORMAL RIGHT VENTRICLE: NORMAL LEFT VENTRICLE: NORMAL TRICUSPID VALVE: NORMAL MITRAL VALVE: NORMAL PULMONIC VALVE: NORMAL AORTIC VALVE: NORMAL PERICARDIAL EFFUSION: NONE AORTIC ROOT: NORMAL LEFT VENTRICULAR WALL MOTION: NORMAL DOPPLER/COLOR FLOW: MILD TRICUSPID REGURGITATION. COMMENTS: NORMAL LEFT VENTRICULAR SIZE AND FUNCTION. NO WALL MOTION ABNORMALITY. NO EFFUSION. TECHNOLOGIST: Gretchen CADENA
--- NOTE | 2021-05-17 17:26 | SS ---
Date of Discharge: 05/16/2021 The patient was admitted to the hospital after presenting to the emergency room on 05/16 with chest p ain. He states it was more than usual even with some activity and it became quite uncomfortable and presented to the emergency room with diagnosis of acute coronary syndrome was made, treated eufemia mitchell in the ER and admitted for further evaluation with elevated troponins and Cardiology was consult ed. Well known to them. He has had prior episodes; however, he was on Eliquis and seen by Cardiolog y. He was asymptomatic. Vital signs were stable. He was up and about without any discomfort and wa s felt that it was safe to discharge him, hold the Eliquis over the weekend, and schedule him for an outpatient catheterization on Friday, and this was done. HR/MODL Voice ID: [id number] Report ID: [id number]
== END 2021-05-16 15:00 | disposition home or self-care (01) | DRG 282 ==
LOC: ER 13:29 → ERHOLD 19:53 → 2ND 21:07
PROVIDERS: ADMIT Family Medicine; ATTEND Family Medicine
DX: I21.4 Non-ST elevation (NSTEMI) myocardial infarction (principal); I10 Essential (primary) hypertension; E11.9 Type 2 diabetes mellitus without complications; I48.91 Unspecified atrial fibrillation; E78.5 Hyperlipidemia, unspecified; K21.9 Gastro-esophageal reflux disease without esophagitis; F03.90 Unspecified dementia, unspecified severity, without behavioral disturbance, psychotic disturbance, mood disturbance, and anxiety; Z95.1 Presence of aortocoronary bypass graft; Z20.822 Contact with and (suspected) exposure to COVID-19
CPT/HCPCS: 36415; 71045; 80048; 80076; 82947; 83735; 83880; 84484; 85025; 85610; 93005; 93306; 96374; 99285; J2270; U0003

== ENCOUNTER 2021-05-21 06:35 | Day surgery (SDC) | payer OTHER ==
[2021-05-21] MEDS ORDERED: NA CHLORIDE 0.9% 500 ML ONE (06:39)
[2021-05-21] MEDS ORDERED: HEPA 1000U/500MLS 2,000 UNIT/1,000 ML BAG IV ONE (06:54)
[2021-05-21] MEDS ORDERED: LIDOCAINE 1% 20 ML MDV ONE (06:55)
[2021-05-21] MEDS ORDERED: FENTANYL CITR 100 MCG/2 ML ONE (07:08)
[2021-05-21] MEDS ORDERED: MIDAZOLAM HCL 2 MG/2 ML INJ ONE (07:09)
[2021-05-21] MEDS ORDERED: ATROPINE SULF 1 MG/10 ML SYR IV ONE (07:10)
[2021-05-21] MEDS ORDERED: NA CHLORIDE 0.9% 50 ML ONE (07:10)
[2021-05-21] MEDS ORDERED: HEPA 1000U/500MLS 1,000 UNIT/500 ML BAG IV ONE ×2 (07:59→08:06)
[2021-05-21] MEDS ORDERED: NITROGLYCERIN 100 MCG/ML SYR (for cath lab use only) IV ONE (08:00)
[2021-05-21] MEDS ORDERED: NITROGLYCERIN/D5W 25 MG/250 ML BTL IV ONE (08:00)
[2021-05-21] MEDS ORDERED: PRASUGREL (EFFIENT) 10 MG TAB ONE (08:16)
[2021-05-21] MEDS ORDERED: ASPIRIN 325 MG TAB ONE (08:16)
[2021-05-21 09:38] VITALS: TEMP 97.1
[2021-05-21] MEDS ORDERED: MORPHINE 4 MG/ML SYR ONE (10:09)
[2021-05-21] MEDS ORDERED: MORPHINE 2 MG/ML SYR IV ONE (10:11)
--- NOTE | 2021-05-21 12:11 | OP ---
Surgeon: Anish Lawrence MD [place] Head: Phyllis Grimm. Reason For Admission: Left heart catheterization, selective coronary arteriogram, vein graft injecti on, PATTON injection, and primary stent of the mid LAD. Indication: CAD and unstable angina. Mr. Greoc is a 80-year-old. Has CAD status post CABG. Has p aroxysmal atrial fibrillation, on Eliquis. Come in last week while he was on Eliquis with a non-STEM I, was pain free after few hours of being in the hospital, was sent home and was set up as an outpati ent today for heart catheterization. He had come off the Eliquis 48 hours ago. Procedure In Detail: In the paving and surfacing labourer, he was prepped and draped in the routine sterile fashion. Giv en Versed and fentanyl for sedation. A 6-Congolese sheath introduced in the right common femoral artery successfully. Angiography there was normal. StarClose was used to close the procedure. Natividad ca theter left and right were used to do the catheterization. He was found to have a normal left main, an 80% to 90% mid LAD stenosis, a proximal LAD stent, normal circumflex. His RCA was completely occl uded distally with about an 80% to 90% mid RCA stenosis. There appeared to be some distal competitiv e flow in the RCA, but I could not find the RCA graft. There was an OM graft that was open. The aor tic root was done and there were no RCA grafts obvious to us. The JR4 catheter was also used to shira ulate the PATTON selectively. The PATTON was not used. Basically, he had what appeared to be an RCA gra ft that is occluded and OM graft that was patent and an 80% mid LAD. We decided to intervene with th e LAD. He was given Angiomax, Effient, aspirin. An XBLAD 3.5 guide with sidehole was used to cannul ate the left main. A Henderson wire was used to cross the lesion. A 3.5 x 20 Synergy stent was used to primary stent the LAD at the 11 atmospheres with 0% residual. Of note is that I tried a multipurpos e catheter to find the RCA graft and I could not do that either. Nevertheless, the patient tolerated the procedure well. There were no complications. Blood Loss: 5 mL. Final Diagnosis: Successful primary stent of the mid LAD. Plan: Plan is for the patient to stay in the hospital for about 2 hours of bedrest in 4 hours bedres t after which he can go home and I will see him in the office in 2 weeks. He will resume his home me dications. He will resume his Eliquis tomorrow. If he has any more chest pain down the road, we may have to intervene with his RCA. FOUZIA/MAXIME Voice ID: [id number] Report ID: [id number]
[2021-05-21 13:04] VITALS: O2SAT 97
[2021-05-21 16:13] VITALS: BP 125/71
== END 2021-05-21 16:14 | disposition home or self-care (01) ==
LOC: CCL 06:35
DX: I21.4 Non-ST elevation (NSTEMI) myocardial infarction (principal); I25.110 Atherosclerotic heart disease of native coronary artery with unstable angina pectoris; I25.82 Chronic total occlusion of coronary artery; I25.700 Atherosclerosis of coronary artery bypass graft(s), unspecified, with unstable angina pectoris; I48.0 Paroxysmal atrial fibrillation; I10 Essential (primary) hypertension; E11.40 Type 2 diabetes mellitus with diabetic neuropathy, unspecified; E78.5 Hyperlipidemia, unspecified; K21.9 Gastro-esophageal reflux disease without esophagitis; F03.90 Unspecified dementia, unspecified severity, without behavioral disturbance, psychotic disturbance, mood disturbance, and anxiety; Z79.01 Long term (current) use of anticoagulants; Z95.5 Presence of coronary angioplasty implant and graft
CPT/HCPCS: 82947 ×2; 85347 ×2; 93567; 93455; C1893; C1725; C1877; C9600; J2250; J3010; J0583; J7040; J1644 ×3

== ENCOUNTER 2022-02-04 07:58 | Day surgery (SDC) | payer OTHER ==
--- NOTE | 2022-02-01 14:13 | RAD REPORT ---
EXAM DESCRIPTION: RAD - Chest Pa And Lat (2 Views) - 02/01/2022 2:05 pm CLINICAL HISTORY: pre op for surgery COMPARISON: Chest Single View dated 05/15/2021; Abdomen Acute Series dated 12/16/2018; Chest Single Vi ew dated 08/19/2017; CHEST SINGLE VIEW dated 08/08/2013 FINDINGS: Lines: None. Lungs: New opacities at the right lung base not readily apparent on the lateral view. Pleural: No significant pleural effusions or pneumothorax. Cardiac: The heart size is within normal limits. Mediastinum: Within normal limits. Bones: No acute fractures. Sternotomy. Other: None IMPRESSION: New right basilar opacities with the appearance of a consolidative process but no corres ponding abnormality seen on the lateral radiograph. Nevertheless, cannot exclude pneumonia at the rig ht lung base. Could consider a follow-up radiograph to reassess.
[2022-02-01 14:43] LABS: Absolute Lymphocytes (CBC) 1.5 K/uL (0.7-4.9); Hematocrit 40.3 % (39.6-49.0); Lymphocytes % 19.3 % (15.3-44.8); MCV 92.5 fL (80-100); MPV 8.2 fL (7.6-11.3); RBC Red Blood Cell Count 4.36 M/uL (4.33-5.43)
[2022-02-01 16:05] LABS: Albumin 3.8 g/dL (3.4-5.0); Bilirubin Direct 0.2 mg/dL (0-0.2); Bilirubin Total 0.6 mg/dL (0.2-1.0); Potassium 4.3 mmol/L (3.5-5.1); Protein, Total 7.4 g/dL (6.4-8.2)
[2022-02-04] MEDS ORDERED: NA CHLORIDE 0.9% 1,000 ML ONE (08:48)
[2022-02-04] MEDS: CEFOXITIN SODIUM 1 GM/VIAL ONE ×2 (10:36→11:30)
[2022-02-04] MEDS ORDERED: propofoL 200 MG/20 ML VIAL IV ONE (10:41)
[2022-02-04] MEDS ORDERED: FENTANYL CITR 100 MCG/2 ML ONE (10:41)
[2022-02-04] MEDS ORDERED: LIDOCAINE 1% MPF 5 ML VIAL ONE (10:41)
[2022-02-04] MEDS ORDERED: ROCURONIUM 50 MG/5 ML VIAL IV ONE (10:41)
[2022-02-04] MEDS ORDERED: NS 0.9% VIAL 10 ML ONE (11:20)
[2022-02-04] MEDS ORDERED: dexAMETHasone 10 MG/ML VIAL ONE (11:37)
[2022-02-04] MEDS ORDERED: KETOROLAC 30 MG/ML INJ ONE (11:37)
[2022-02-04] MEDS ORDERED: ONDANSETRON 4 MG/2 ML VIAL ONE (11:38)
[2022-02-04] MEDS ORDERED: GLYCOPYRROLATE 0.2 MG/ML SYR ONE ×2 (11:49→12:06)
--- NOTE | 2022-02-04 12:08 | P.BOP ---
Preoperative diagnosis: symptomatic cholelithiasis, RUQ abdominal pain, cholecystitis Postoperative diagnosis: same Primary procedure: Laparoscopic cholecystectomy Fugitive Detective: Shonda Driscoll (Mehran) Estimated blood loss: <10c Specimen: gb Findings: as above Anesthesia: General Complications: None Transferred to: Recovery Room Condition: Good
[2022-02-04] MEDS ORDERED: MORPHINE 4 MG/ML SYR ONE (12:39)
[2022-02-04 12:59] VITALS: BP 113/61; TEMP 97.1; O2SAT 96
--- NOTE | 2022-02-04 15:15 | EKG ---
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
--- NOTE | 2022-02-04 19:18 | OP ---
Date of Procedure: 02/04/2022 Surgeon: Tobias Wormkan MD Cafeteria Supervisor: STACY Morales. Preoperative Diagnoses: Symptomatic cholelithiasis, right upper quadrant abdominal pain, and cholecy stitis. Postoperative Diagnoses: Symptomatic cholelithiasis, right upper quadrant abdominal pain, and cholec ystitis. Procedure: Laparoscopic cholecystectomy. Estimated Blood Loss: Less than 10 cc. Specimen: Gallbladder. Finding: As above. Anesthesia: General plus local. Complications: None. Indications: This is a case of a male who comes to us with above diagnoses. Fully explained the purnima efits, alternatives, and risks of laparoscopic and possible open cholecystectomy, which include, but are not limited to infection, bleeding, damage to adjacent structures, anesthesia complication, natalee docholithiasis, bile leak, pancreatitis, [place] and even . He also understands this may not relieve the symptoms. He might need more than one surgical intervention. He understood and signed a consen t. Procedure In Detail: The patient was brought to the operating room and placed supine in position. A nesthesia was given without complication. Abdominal area was prepped and draped in usual sterile fas hion. Marcaine 0.5% was injected for local anesthetic followed by sharp incision of the skin in the supraumbilical region. Incision was carried down to fascia, which was opened under direct vision. P eritoneum was encountered and opened under direct vision. Vicryl #1 was placed inside the fascia. H asson trocar was carefully introduced. No bleeding was obtained. I placed 3 more trocars, 5 mm each one of them in the epigastric and right upper quadrant area under direct visualization. This allowe d me to put a grasper in the fundus of the gallbladder and another grasper in the infundibulum and re tracted the gallbladder in the inferolateral fashion exposing the triangle of Calot and obtaining cri tical view. The cystic duct and cystic artery were clearly isolated and freed circumferentially and a connection between those and the gallbladder were clearly identified. I proceeded to ligate those by using at least 3 clips proximal, 1 clip distal, and ligation in middle. Same was done with the cy stic artery. No bile leak. No bleeding. The gallbladder was removed from liver using Bovie cauteri zer and removed from abdominal cavity using Endo Catch through the umbilical incision. The area was inspected once again. No bile leak. No bleeding. At that moment, I proceeded to remove the trocars under direct vision, deflated pneumoperitoneum, closed the fascia with #1 Vicryl, irrigated subcutan eous tissue and closed that with 3-0 chromic and the skin approximated. Sponge count and instrument counts correct. Patient tolerated the procedure well. Patient was sent to recovery in stable condit ion. MONICA/MAXIME Voice ID: [id number] Report ID: [id number]
--- NOTE | 2022-02-04 19:18 | DS ---
Date of Discharge: 02/04/2022 Diagnoses: Symptomatic cholelithiasis, right upper quadrant abdominal pain, and cholecystitis. Procedure: Laparoscopic cholecystectomy. Disposition: Home. Activity: As tolerated. No heavy lifting. Follow Up: In my office in 1 week. Call for appointment on [phone]. Discharge Instructions: Keep area dry for 48 hours, then may shower. Keep dressings intact. Medications: We are going to call them from the office. MONICA/MAXIME Voice ID: [id number] Report ID: [id number]
== END 2022-02-04 13:30 | disposition home or self-care (01) ==
LOC: OR 07:58
PROVIDERS: ATTEND Surgery
PROC: 0FT44ZZ Resection of Gallbladder, Percutaneous Endoscopic Approach (ICD-10-PCS; principal; 2022-02-04 10:30)
DX: K80.10 Calculus of gallbladder with chronic cholecystitis without obstruction (principal); R10.11 Right upper quadrant pain; Z95.1 Presence of aortocoronary bypass graft
CPT/HCPCS: 93005; 85025; 80048; 36415; 82150; 82947 ×2; 80076; 88304; 83690; 71046; 47562; J2704; J2001; J3010; J1100; A4216; J7030; J0694; J2405

== ENCOUNTER 2022-08-14 22:49 | Emergency (ER) | payer OTHER ==
--- OUTSIDE RECORDS SUMMARY | 2022-08-14 22:54 | XMS REPORT | Continuity of Care Document ---
:1940 Author Organization [facility] t Address [address] [place] [address] Care Team Providers Name Role Phone Rober Guillaume MD Primary Care Physician PATTI BARRON Attending Clinician Unavailable Miri Jacobson Attending Clinician Unavailable Travis Nielsen Attending Clinician Patti Barron MD Attending Clinician Yariel Garcia MD Attending Clinician [phone] Nicole Young Attending Clinician Unavailable Génesis Uribe Attending Clinician Unavailable Bruce Wen Attending Clinician Unavailable Polo Mccormack RN Attending Clinician Unavailable Mustapha Jama MD Attending Clinician Only, Adc Test Attending Clinician Unavailable Doctor Unassigned, [address] Attending Clinician Unavailable PATTI BARRON Admitting Clinician Unavailable UNDEFINED Admitting Clinician Unavailable Physician, No Primary or Family Admitting Clinician UnavailPatti Pagan MD Admitting Clinician Payers Payer Name Policy Type Policy Number Effective Date Expiration Date Ana VASQUEZ [id number] 2020 HEALTHCARE 00:00:00 MEDICARE GOLD MEDICARE SABRINA STEIN [id number] Common [facility] AARP C1 [id number] [facility] Problems Condition Condition Condition Status Onset Resolution Last Treating Co mments Source Name Details Category Date Date Treatment Clinician Date Abnormal Abnormal Disease Active 2018-03 Overview: Me thodi stress stress 04-[address] test test 00:00: g of this Hospita 00 note l might be different from the original. Added automatic ally from request for surgery [id number] Chest pain Chest pain Disease Active 2018-03 M ethodi 1-05 st 00:00: Hospita 00 l Aortic Aortic Disease Active Methodi valve valve 6-19 st disorder disorder 00:00: Hospit a 00 l Coronary Coronary Problem Active 2016-032022-03-08 Memoria arterioscl arterioscl 03-31 16:03:45 l erosis in erosis in 00:00: Herm carlos [place] 00 artery artery (disorder) (disorder) Active 01/29/2017 Problem 03/08/2022 [facility] Hx of CABG Hx of CABG Disease Active 2015-03 M ethodi 2-13 st 00:00: Hospita 00 l CAD in CAD in Disease Active 2015-03 Methodi [place] 2-13 st artery artery 00:00: Hospita 00 l Atrial Atrial Disease Active 2015-03 [facility]i fibrillati fibrillati 1-09 st on on 00:00: Hospita 00 l SOB SOB Disease Active 2015-03 [facility] (shortness (shortness 1-09 st of breath) of breath) 00:00: Ho spita 00 l Essential Essential Disease Active 2015-03 Met hodi hypertensi hypertensi 1-09 st on on 00:00: Hospita 00 l Paroxysmal Paroxysmal Disease Active 2015-03 M ethodi atrial atrial 1-09 st fibrillati fibrillati 00:00: Ho spita on on 00 l Presence Presence Disease Active 2015-03 Metho di of stent of stent 109 st in in 00:00: Hospita coronary coronary 00 l artery artery 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 ethodi phageal phageal - st fistula fistula 00:00: Hospita 00 l Coronary Coronary Disease Active Metho di arterioscl arterioscl 11-08 st erosis erosis 00:00: Hospita 00 l 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 diabetes 818 st mellitus mellitus 00:00: Hospit a 00 l HLD HLD Disease Active [facility] (hyperlipi (hyperlipi 11-08 st demia) demia) 00:00: Hospita 00 l Hypertensi Hypertens Problem Active 2022-03-08 Memoria ve kendrick 16:03:45 l disorder, disorder, Herm carlos systemic systemic arterial arterial (disorder) (disorder) Active Problem 03/08/2022 [facility] Paresthesi Paresthes Problem Active 2022-03-08 Memoria a of [place] of 16:03:45 l extremity lower [place] (finding) extremity (finding) Active Problem 03/08/2022 [facility] Primary Primary Problem Active 2022-03-08 Me moria degenerati degenerati 16:03:45 l 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, type, senile senile onset onset (disorder) (disorder) Active Problem 03/08/2022 [facility] Shoulder Shoulder Problem Active 2022-03-08 Memoria pain pain 16:03:45 l (finding) (finding) Herm carlos Active Problem 03/08/2022 [facility] Sleep Sleep Problem Active 2022-03-08 Memor ia apnea apnea 16:03:45 l (finding) (finding) Herm carlos Active Problem 03/08/2022 [facility] Anxiety Anxiety Problem Active 2022-03-08 Me moria (finding) (finding) 16:03:45 l Active [place] Problem 03/08/2022 [facility] Hypospadia Hypospadia Problem Active C neto s s [facility] - [facility] [place] Problem Active 2022-03-08 M emoria r calculus [place] 16:03:45 l (disorder) r calculus [place] (disorder) Active Problem 03/08/2022 [facility] Paresthesi Paresthes Problem Active 2022-03-08 Memoria a ia 16:03:45 l (finding) (finding) Herm carlos Active Problem 03/08/2022 [facility] Peripheral Periphera Problem Active 2022-03-08 Memoria nerve l nerve 16:03:45 l disease disease [place] (disorder) (disorder) Active Problem 03/08/2022 [facility] Allergies, Adverse Reactions, Alerts Allergy Allergy Status Severity Reaction(s) Onset Inactive Treating Comm ents Source Name Type Date Date Clinician No Known DA Active [facility]09 [facility] No Known DA Active [facility] [...] Active Univers ALLERGIE Class ity of S [facility] No Known No Known Active Memori a Medicati Medicati l on on Ke Allergie Allergie s s Family History Family Member Diagnosis Comments Start Date Stop Date Source Natural mother Blood Clots [facility] Social History Social Habit Start Date Stop Date Quantity Comments Source History of Tobacco Former Smoker [facility] - Use [facility] Exposure to Not sure [facility] SARS-CoV-2 (event) Hospit al Gender identity [facility] Sexual orientation [facility] History of Social 2022-06-21 2022-06-[address] function 00:00:00 00:00:00 Hospital Alcohol intake 2020-10-30 2020-10-30 Current [facility] 00:00:00 00:00:00 non-drinker of Hospital alcohol (finding) Social History 2020-10-06 2020-10-06 [facility] 19:59:18 19:59:18 Tobacco use and 2020-05-30 2020-05-30 Never used Universit y of exposure 00:00:00 00:00:00 [facility] Cigarettes smoked 2017-04-01 2017-04-[address] current (pack per 00:00:00 00:00:00 Hospita l day) - Reported Cigarette 2017-04-01 2017-04-01 [facility] pack-years 00:00:00 00:00:00 Hospital Tobacco Comment 2015-11-07 2015-11-07 QUIT-1981 [facility] 00:00:00 00:00:00 Hospital Sex Assigned At [birth year] [facility] 00:00:00 00:00:00 Hospital Smoking Status Start Date Stop Date Source Unknown if ever smoked [facility] Tobacco smoking status Parviz Dempsey Former Smoker 2020-01-03 00:00:00 2020-01-03 00:00:00 Common S pirit - [facility] nter Medications Ordered Filled Start Stop Current Ordering Indication Dosage Frequency Signature Comments Components Source Medication Medication Date Date Medication? Clinician (SIG) Name Name memantine 2021-03 Yes = 1 tab, Jacek austin 10 mg oral 2-13 PO, BID, # l tablet 20:48: 180 tab, 2 Alejandra nn 00 Refill(s), Pharmacy: [facility], 165.1, cm, 03/05/22 14:30:00 [employer], Height, 88.636, kg, 03/05/22 14:30:00 [employer], Weight gabapentin 2021-03 Yes 300 mg = 1 M emoria 300 mg oral 2-13 cap, PO, l capsule 20:48: Bedtime, # Herm carlos 00 90 cap, 2 Refill(s), Pharmacy: [facility], 165.1, cm, 03/05/22 14:30:00 [employer], Height, 88.636, kg, 03/05/22 14:30:00 [employer], Weight donepezil 2021-03 Yes 23 mg = 1 Mem oria 23 mg oral 2-13 tab, PO, l tablet 20:48: Bedtime, # Alejandra nn 00 90 tab, 3 Refill(s), Pharmacy: [facility], 165.1, cm, 03/05/22 14:30:00 [employer], Height, 88.636, kg, 03/05/22 14:30:00 [employer], Weight memantine 2021-03 Yes = 1 tab, Jacek austin 10 mg oral 2-13 PO, BID, # l tablet 20:48: 180 tab, 2 Alejandra nn 00 Refill(s), Pharmacy: [facility], 165.1, cm, 03/05/22 14:30:00 [employer], Height, 88.636, kg, 03/05/22 14:30:00 [employer], Weight gabapentin 2021-1 Yes 300 mg = 1 M emoria 300 mg oral 2-13 cap, PO, l capsule 20:48: Bedtime, # Herm carlos 00 90 cap, 2 Refill(s), Pharmacy: [facility], 165.1, cm, 03/05/22 14:30:00 [employer], Height, 88.636, kg, 03/05/22 14:30:00 [employer], Weight donepezil 2021-03 Yes 23 mg = 1 Mem oria 23 mg oral 2-13 tab, PO, l tablet 20:48: Bedtime, # Alejandra nn 00 90 tab, 3 Refill(s), Pharmacy: [facility], 165.1, cm, 03/05/22 14:30:00 [employer], Height, 88.636, kg, 03/05/22 14:30:00 [employer], Weight gabapentin 2021-0 Yes 300 mg = 1 M emoria 300 mg oral 6-14 cap, PO, l capsule 20:42: Bedtime, # Herm carlos 00 30 cap, 4 Refill(s), Pharmacy: [facility], 165.1, cm, 09/04/21 15:23:00 CDT, Height, 85.597, kg, 09/04/21 15:23:00 CDT, Weight gabapentin 2021-0 Yes 300 mg = 1 M emoria 300 mg oral 6-14 cap, PO, l capsule 20:42: Bedtime, # Herm carlos 00 30 cap, 4 Refill(s), Pharmacy: [facility], 165.1, cm, 09/04/21 15:23:00 CDT, Height, 85.597, kg, 09/04/21 15:23:00 CDT, Weight esomeprazol 2021-0 Yes TAKE 1 Jacek austin e 40 mg 6-14 CAPSULE BY l oral 20:28: MOUTH [place] delayed 00 TWICE release DAILY capsule esomeprazol 2021-0 Yes TAKE 1 Jacek austin e 40 mg 6-14 CAPSULE BY l oral 20:28: MOUTH [place] delayed 00 TWICE release DAILY capsule clopidogrel 2-0 Yes 75 mg = 1 M emoria 75 mg oral 6-14 tab, PO, l tablet 20:26: Daily, 0 Ke 00 Refill(s) clopidogrel 2-0 Yes 75 mg = 1 M emoria 75 mg oral 6-14 tab, PO, l tablet 20:26: Daily, 0 Ke 00 Refill(s) donepezil 2-0 Yes 23 mg = 1 Mem oria 23 mg oral 4-07 tab, PO, l tablet 19:51: Bedtime, # Alejandra nn 00 90 tab, 3 Refill(s), Pharmacy: [facility], 166.37, cm, 05/03/21 13:42:00 [employer], Height, 87.273, kg, 05/03/21 13:42:00 [employer], Weight donepezil 2-0 Yes 23 mg = 1 Mem oria 23 mg oral 4-07 tab, PO, l tablet 19:51: Bedtime, # Alejandra nn 00 90 tab, 3 Refill(s), Pharmacy: [facility], 166.37, cm, 05/03/21 13:42:00 [employer]ER, Height, 87.273, kg, 05/03/21 13:42:00 [employer], Weight memantine 2-0 Yes 10 mg = 1 Mem oria 10 mg oral 2-10 tab, PO, l tablet 20:03: BID, # 180 Alejandra nn 00 tab, 2 Refill(s), Pharmacy: [facility], 166.37, cm, 05/03/21 13:42:00 [employer], Height, 87.273, kg, 05/03/21 13:42:00 [employer], Weight memantine 2-0 Yes 10 mg = 1 Mem oria 10 mg oral 2-10 tab, PO, l tablet 20:03: BID, # 180 Alejandra nn 00 tab, 2 Refill(s), Pharmacy: [facility], 166.37, cm, 05/03/21 13:42:00 [employer], Height, 87.273, kg, 05/03/21 13:42:00 [employer], Weight gabapentin 2020- Yes 300 mg = 1 M emoria 300 MG Oral 1-09 cap, PO, l Capsule 20:35: Bedtime, # Herm carlos 00 30 cap, 4 Refill(s), Pharmacy: [facility], 167.64, cm, 01/30/21 14:17:00 [employer], Height, 87.727, kg, 01/30/21 14:17:00 [employer], Weight gabapentin 2020-03 Yes 300 mg = 1 M emoria 300 MG Oral 1-09 cap, PO, l Capsule 20:35: Bedtime, # Herm carlos 00 30 cap, 4 Refill(s), Pharmacy: [facility], 167.64, cm, 01/30/21 14:17:00 [employer], Height, 87.727, kg, 01/30/21 14:17:00 [employer], Weight dicyclomine 2020-03 Yes 0 Memori a 20 mg oral 1-09 Refill(s) l tablet 20:22: Ke 00 dicyclomine 2020-03 Yes 0 Memori a 20 mg oral 1-09 Refill(s) l tablet 20:22: Ke 00 omeprazole 2020-03 Yes 0 Memoria 40 mg oral 1-09 Refill(s) l delayed 20:20: [place] release 00 capsule omeprazole 2020-03 Yes 0 Memoria 40 mg oral 1-09 Refill(s) l delayed 20:20: Ke release 00 capsule potassium Yes 20meq QD Take 20 Meth [...] Yes Take by Met hodi E HCL 8-[address] (HAIR 18:27: needed. Hospit [...] Take 4 mg M ethodi (AMARYL) 2 8-[address] MG tablet 18:25: (two) Hospita 17 times a l day. amLODIPine Yes 10mg Q.5D Take 10 mg M ethodi (NORVASC) [address] 10 MG 18:25: (two) Hospita tablet 17 times a l day. potassium Yes 20meq QD Take 20 Meth lorraine chloride 8-[address] (KLOR-CON) 13:33: mouth Hospit a 20 mEq 22 daily. l packet aloe vera Yes Take by Metho di 25 mg 8-[address] capsule 13:33: Hospita 22 l omega-3/dha Yes Take by Met hodi /epa/dpa/fi 8-[address] sh oil 13:33: Hospita (OMEGA-3 22 l 2100 ORAL) ergocalcife Yes 1000mg Take 1,000 Methodi rol, 8-[address] vitamin D2, 13:33: mouth. Hosp darius (VITAMIN D2 22 l ORAL) potassium 0 Yes 20meq QD Take 20 Meth lorraine chloride 8-[address] (KLOR-CON) 13:33: mouth Hospit a 20 mEq 22 daily. l packet aloe vera 0 Yes Take by Metho di 25 mg 8-[address] capsule 13:33: Hospita 22 l omega-3/dha 2020-0 Yes Take by Met hodi /epa/dpa/fi 8-[address] sh oil 13:33: Hospita (OMEGA-3 22 l 2100 ORAL) ergocalcife 2020-0 Yes 1000mg Take 1,000 Methodi rol, 8-[address] vitamin D2, 13:33: mouth. Hosp darius (VITAMIN D2 22 l ORAL) apixaban 2020-0 Yes Q.5D Take by Method i (ELIQUIS) 5 8-[address] mg tablet 13:27: (two) Hospita 07 times a l day. FEXOFENADIN 0 Yes Take by Met hodi E HCL 8-[address] (HAIR 13:27: needed. Hospit a ALLERGY 07 l ORAL) latanoprost 2020-0 Yes 1[drp] QD 1 drop Me thodi (XALATAN) 8-[address] 0.005 % 13:27: Hospita ophthalmic 07 l solution tamsulosin 2020-0 Yes .4mg QD Take 0.4 Met hodi (FLOMAX) 8-[address] 0.4 mg 13:27: mouth Hospita capsule 07 daily with l dinner. simvastatin 2020-0 Yes 40mg QD Take 40 mg Methodi (ZOCOR) 40 8-[address] MG tablet 13:27: nightly. Hosp darius 07 l apixaban 2020-0 Yes Q.5D Take by Method i (ELIQUIS) 5 8-[address] mg tablet 13:27: (two) Hospita 07 times a l day. FEXOFENADIN 2020-0 Yes Take by Met hodi E HCL 8-[address] (HAIR 13:27: needed. Hospit a ALLERGY 07 l ORAL) latanoprost 2020-0 Yes 1[drp] QD 1 drop Me thodi (XALATAN) 8-[address] 0.005 % 13:27: Hospita ophthalmic 07 l solution tamsulosin 2020-0 Yes .4mg QD Take 0.4 Met hodi (FLOMAX) 8-[address] 0.4 mg 13:27: mouth Hospita capsule 07 daily with l dinner. simvastatin 2021-0 Yes 40mg QD Take 40 mg Methodi (ZOCOR) 40 10-[address] MG tablet 13:27: nightly. Hosp darius 07 l glimepiride 2020-0 Yes 4mg Q.5D Take 4 mg M ethodi (AMARYL) 2 -[address] MG tablet 13:25: (two) Hospita 17 times a l day. amLODIPine 2020-0 Yes 10mg Q.5D Take 10 mg M ethodi (NORVASC) 10-[address] 10 MG 13:25: (two) Hospita tablet 17 times a l day. glimepiride 2020-0 Yes 4mg Q.5D Take 4 mg M ethodi (AMARYL) 2 10-[address] MG tablet 13:25: (two) Hospita 17 times a l day. amLODIPine 2020-0 Yes 10mg Q.5D Take 10 mg M ethodi (NORVASC) 10-[address] 10 MG 13:25: (two) Hospita tablet 17 times a l day. Metformin Yes 500 mg = 1 Me moria hydrochlori 7-16 tab, PO, l de 500 MG 19:55: Daily, Chidi n Oral Tablet 00 take with a meal, # 30 tab, 1 Refill(s) metFORMIN 2020-0 Yes 500 mg = 1 Me moria 500 mg oral 7-16 tab, PO, l tablet 19:55: Daily, Ke 00 take with a meal, # 30 tab, 1 Refill(s) Metformin 2020-0 Yes 500 mg = 1 Me moria hydrochlori 7-16 tab, PO, l de 500 MG 19:55: Daily, Chidi n Oral Tablet 00 take with a meal, # 30 tab, 1 Refill(s) metFORMIN 2020-0 Yes 500 mg = 1 Me moria 500 mg oral 7-16 tab, PO, l tablet 19:55: Daily, Ke 00 take with a meal, # 30 tab, 1 Refill(s) tamsulosin Yes TAKE 2 Memor ia 0.4 mg oral 7-16 CAPSULES l capsule 19:40: BY MOUTH Chidi n 00 AT BEDTIME amLODIPine 2020-0 Yes TAKE 1 Memor ia 10 mg oral 7-16 TABLET BY l tablet 19:40: MOUTH Ke 00 TWICE DAILY tamsulosin Yes TAKE 2 Memor ia 0.4 mg oral 7-16 CAPSULES l capsule 19:40: BY MOUTH Hcidi n 00 AT BEDTIME amLODIPine 0 Yes TAKE 1 Memor ia 10 mg oral 7-16 TABLET BY l tablet 19:40: MOUTH [place] 00 TWICE DAILY memantine Yes 10 mg = 1 Mem oria 10 mg oral 4-01 tab, PO, l tablet 18:36: BID, # 180 Alejandra nn 00 tab, 2 Refill(s), Pharmacy: [facility], 165.1, cm, 06/06/20 13:49:00 CDT, Height, 85.455, kg, 06/06/20 13:49:00 CDT, Weight memantine Yes 10 mg = 1 Mem oria 10 mg oral 4-01 tab, PO, l tablet 18:36: BID, # 180 Alejandra nn 00 tab, 2 Refill(s), Pharmacy: [facility], 165.1, cm, 06/06/20 13:49:00 CDT, Height, 85.455, kg, 06/06/20 13:49:00 CDT, Weight amLODIPine Yes 10mg Take 10 mg U nivers 10 mg 3-10 by mouth ity of tablet 19:30: daily. [place] [address] Medical Branch ciprofloxac Yes 500mg Take 500 U nivers in (CIPRO 3-10 mg by ity of XR) 500 mg 19:30: mouth [place] 24 hr daily. Medical tablet Branch donepeziL 5 0 Yes 5mg Take 5 mg U nivers mg tablet 3-10 by mouth ity of 19:30: at [place] [address] bedtime. Medical Branch apixaban 0 Yes 5mg Take 5 mg Univ ers (ELIQUIS) 5 3-10 by mouth 2 it y of mg tablet 19:30: (two) [place] [address] times Medical daily. Branch glimepiride Yes 4mg Take 4 mg U nivers 4 mg tablet 3-10 by mouth ity of 19:30: daily with [place] [address] breakfast. Medical Branch memantine 5 2020-0 Yes 5mg Take 5 mg U nivers mg tablet 3-10 by mouth ity of 19:30: daily. [place] [address] Medical Branch omeprazole 0 Yes 40mg Take 40 mg U nivers 40 mg 3-10 by mouth ity of capsule 19:30: daily. [place] [address] Medical Branch simvastatin 0 Yes 40mg Take 40 mg Univers 40 mg 3-10 by mouth ity of tablet 19:30: at [place] [address] bedtime. Medical Branch simethicone 0 Yes PRN, Univer s (GAS RELIEF 3-10 Starting ity of (SIMETHICON 15:26: Wed [place] E)) 40 00 05/31/20 at Medical mg/0.6 mL 0926, Branch drops Until Discontinu ed, Routine, Intra-op lactated 2020- No 1000mL at 42 Unive rs ringers IV 3-10 03-10 mL/hr, ity of infusion 14:30: 14:30 1,000 mL, Vimal as 1,000 mL 00 :00 IV Medical Infusion, Branch ONCE, 1 dose, Fri05/31/20 at 0830, Routine, DSU Pre-op amLODIPine Yes 10mg Take 10 mg U nivers 10 mg 3-10 by mouth ity of tablet 13:30: daily. [place] [address] Medical Branch ciprofloxac Yes 500mg Take 500 U nivers in (CIPRO 3-10 mg by ity of XR) 500 mg 13:30: mouth [place] 24 hr 17 daily. Medical tablet Branch donepeziL 5 Yes 5mg Take 5 mg U nivers mg tablet 3-10 by mouth ity of 13:30: at [place] [address] bedtime. Medical Branch apixaban Yes 5mg Take 5 mg Univ ers (ELIQUIS) 5 3-10 by mouth 2 it y of mg tablet 13:30: (two) [place] [address] times Medical daily. Branch glimepiride 0 Yes 4mg Take 4 mg U nivers 4 mg tablet 3-10 by mouth ity of 13:30: daily with [place] [address] breakfast. Medical Branch memantine 5 0 Yes 5mg Take 5 mg U nivers mg tablet 3-10 by mouth ity of 13:30: daily. [place] [address] Medical Branch omeprazole 0 Yes 40mg Take 40 mg U nivers 40 mg 3-10 by mouth ity of capsule 13:30: daily. [address] simvastatin Yes 40mg Take 40 mg Univers 40 mg 3-10 by mouth ity of tablet 13:30: at [place] [address] bedtime. Medical Branch iohexol 2020- No 120mL 120 mL, Unive rs (OMNIPAQUE 05-05- Intravenou it y of 350 20:00: 19:50 s, ONCE, 1 [place] BULK-150 00 :00 dose, Fri Medica l mL) 05/05/20 at [place] injection 1400, 120 mL Routine memantine 2019-03 Yes 10 mg = 1 Mem oria 10 mg oral 1-03 tab, PO, l tablet 19:20: BID, # 180 Alejandra nn 00 tab, 2 Refill(s), Pharmacy: [facility], 167.64, cm, 12/21/19 9:58:00 CDT, Height, 88.636, kg, 12/21/19 9:58:00 CDT, Weight memantine 2019-03 Yes 10 mg = 1 Mem oria 10 mg oral 1-03 tab, PO, l tablet 19:20: BID, # 180 Alejandra nn 00 tab, 2 Refill(s), Pharmacy: [facility], 167.64, cm, 12/21/19 9:58:00 CDT, Height, 88.636, kg, 12/21/19 9:58:00 CDT, Weight furosemide 2019-03- No [id number] 20mg QD Take 1 Methodi (LASIX) 20 0-20 10-21 tablet (20 st mg tablet 00:00: 04:59 mg total) Ho spita 00 :00 by mouth l daily. donepezil Yes 23 mg = 1 Mem oria 23 mg oral 9-29 tab, PO, l tablet 19:41: Bedtime, # Alejandra nn 00 90 tab, 3 Refill(s), Pharmacy: [facility], 167.64, cm, 12/21/19 9:58:00 CDT, Height, 88.636, kg, 12/21/19 9:58:00 CDT, Weight donepezil Yes 23 mg = 1 Mem oria 23 mg oral 9-29 tab, PO, l tablet 19:41: Bedtime, # Alejandra nn 00 90 tab, 3 Refill(s), Pharmacy: [facility], 167.64, cm, 12/21/19 9:58:00 CDT, Height, 88.636, kg, 12/21/19 9:58:00 CDT, Weight donepezil 2020-0 No 23 mg = 1 Mem oria 23 mg oral 9-29 tab, PO, l tablet 19:18: Bedtime, X Alejandra nn 30 day, # 30 tab, 6 Refill(s), Pharmacy: [facility], 167.64, cm, 12/21/19 9:58:00 CDT, Height, 88.636, kg, 12/21/19 9:58:00 CDT, Weight donepezil 2020-0 No 23 mg = 1 Mem oria 23 mg oral 9-29 tab, PO, l tablet 19:18: Bedtime, X Alejandra nn 30 day, # 30 tab, 6 Refill(s), [facility]: [facility], 167.64, cm, 12/21/19 9:58:00 CDT, Height, 88.636, kg, 12/21/19 9:58:00 CDT, Weight donepezil 2020-0 Yes 23 mg = 1 Mem oria 23 mg oral 6-18 tab, PO, l tablet 19:36: Bedtime, # Alejandra nn 00 30 tab, 6 Refill(s), Pharmacy: [facility], 167.64, cm, 09/09/19 14:07:00 CDT, Height, 88.182, kg, 09/09/19 14:07:00 CDT, Weight donepezil 2020-0 Yes 23 mg = 1 Mem oria 23 mg oral 6-18 tab, PO, l tablet 19:36: Bedtime, # Alejandra nn 00 30 tab, 6 Refill(s), Pharmacy: [facility], 167.64, cm, 09/09/19 14:07:00 CDT, Height, 88.182, kg, 09/09/19 14:07:00 CDT, Weight memantine 2020-0 Yes 10 mg = 1 Mem oria 10 mg oral 6-18 tab, PO, l tablet 19:34: BID, # 60 Chidi n 00 tab, 6 Refill(s), Pharmacy: [facility], 167.64, cm, 09/09/19 14:07:00 CDT, Height, 88.182, kg, 09/09/19 14:07:00 CDT, Weight donepezil 2020-0 No = 1 tab, Jacek austin 10 mg oral 6-18 PO, l tablet 19:34: Bedtime, # Alejandra nn 00 30 tab, 6 Refill(s), Pharmacy: [facility], 167.64, cm, 09/09/19 14:07:00 CDT, Height, 88.182, kg, 09/09/19 14:07:00 CDT, Weight memantine 0 Yes 10 mg = 1 Mem oria 10 mg oral 6-18 tab, PO, l tablet 19:34: BID, # 60 Chidi n 00 tab, 6 Refill(s), Pharmacy: [facility], 167.64, cm, 09/09/19 14:07:00 CDT, Height, 88.182, kg, 09/09/19 14:07:00 CDT, Weight donepezil 0 No = 1 tab, Jacek austin 10 mg oral 6-18 PO, l tablet 19:34: Bedtime, # Alejandra nn 00 30 tab, 6 Refill(s), Pharmacy: [facility], 167.64, cm, 09/09/19 14:07:00 CDT, Height, 88.182, kg, 09/09/19 14:07:00 CDT, Weight memantine 2018-03 Yes 10 mg = 1 Mem oria 10 mg oral 1-26 tab, PO, l tablet 15:49: BID, # 60 Chidi n 00 tab, 6 Refill(s), Pharmacy: [place] [address] memantine 2018-03 Yes 10 mg = 1 Mem oria 10 mg oral 1-26 tab, PO, l tablet 15:49: BID, # 60 Chidi n 00 tab, 6 Refill(s), Pharmacy: [place] [address] Donepezil 2017-03 Yes 10 mg = 1 Mem oria hydrochlori 0-12 tab, PO, l de 10 MG 21:01: Bedtime, # Her jimenes Oral Tablet 10 30 tab, 6 [Aricept] Refill(s), Pharmacy: [facility] Donepezil 2017-03 Yes 10 mg = 1 Mem oria hydrochlori 0-12 tab, PO, l de 10 MG 21:01: Bedtime, # Her yudy Oral Tablet 10 30 tab, 6 [Aricept] Refill(s), Pharmacy: [facility] Memantine 2017-03 No 5 mg = 1 Jacek austin hydrochlori 0-12 tab, PO, l de 5 MG 21:01: BID, # 60 Alejandra nn Oral Tablet 07 tab, 6 [Namenda] Refill(s), Pharmacy: [facility] Memantine 2017-03 No 5 mg = 1 Jacek austin hydrochlori 0-12 tab, PO, l de 5 MG 21:01: BID, # 60 Alejandra nn Oral Tablet 07 tab, 6 [Namenda] Refill(s), Pharmacy: [facility] memantine 2017-0 Yes 5mg Q.5D 5 mg 2 Method i (NAMENDA) 5 5-22 (two) st MG tablet 00:00: times a Hospi ta 00 day. l memantine 2018-0 Yes 5mg Q.5D 5 mg 2 Method i (NAMENDA) 5 5-22 (two) st MG tablet 00:00: times a Hospi ta 00 day. l memantine 2018-0 Yes 5mg Q.5D 5 mg 2 Method i (NAMENDA) 5 5-22 (two) st MG tablet 00:00: times a Hospi ta 00 day. l metoprolol 2018-0 Yes 50 mg = 1 Me moria 50 mg oral 3-09 tab, PO, l tablet, 15:47: Daily, 0 Chidi n extended 00 Refill(s) release metoprolol 2018-0 Yes 50 mg = 1 Me moria 50 mg oral 3-09 tab, PO, l tablet, 15:47: Daily, 0 Chidi n extended 00 Refill(s) release Eliquis 5 2018-0 Yes 5 mg, PO, Mem oria mg oral 2-13 Daily, 0 l tablet 19:39: Refill(s) Chidi n 00 aspirin 81 2017-0 Yes 81 mg = 1 Me moria mg tablet, 2-13 tab, PO, l enteric 19:39: Daily, # Chidi n coated 00 90 tab, 3 Refill(s) glimepiride 2018-0 Yes See Memori a 4 mg oral 2-13 Instructio l tablet 19:39: ns, 1 tab Chidi n 00 PO in the morning, 1/2 tab po at bedtime, 0 Refill(s) simvastatin 2018- Yes 40 mg = 1 M emoria 40 mg oral 2-13 tab, PO, l tablet 19:39: Daily, # Ke 00 90 tab, 1 Refill(s) Eliquis 5 2018-0 Yes 5 mg, PO, Mem oria mg oral 2-13 Daily, 0 l tablet 19:39: Refill(s) Chidi n 00 aspirin 81 2018-0 Yes 81 mg = 1 Me moria mg tablet, 2-13 tab, PO, l enteric 19:39: Daily, # Chidi n coated 00 90 tab, 3 Refill(s) glimepiride 2017-0 Yes See Memori a 4 mg oral 2-13 Instructio l tablet 19:39: ns, 1 tab Chidi n 00 PO in the morning, 1/2 tab po at bedtime, 0 Refill(s) simvastatin Yes 40 mg = 1 M emoria 40 mg oral 2-13 tab, PO, l tablet 19:39: Daily, # Ke 00 90 tab, 1 Refill(s) donepezil 2017-0 Yes 10mg QD Take 10 mg Me thodi (ARICEPT) 5 6-[address] MG tablet 00:00: nightly. [facility] l donepezil 2017-0 Yes 10mg QD Take 10 mg Me thodi (ARICEPT) 5 6-[address] MG tablet 00:00: nightly. [facility] 00 l donepezil 2017-0 Yes 10mg QD Take 10 mg Me thodi (ARICEPT) 5 6-[address] MG tablet 00:00: nightly. [facility] 00 l Simvastatin Simvastatin Yes Lilly 1 tablet Common [place] in the Spirit [facility] Tamsulosin Tamsulosin Yes Lilly 1 capsule Common HCl HCl Trisha Spirit [facility] Amlodipine Amlodipine Yes Lilly 1 tablet Common Besylate Besylate Trisha Spi rit - [facility] Memantine Memantine Yes Lilly 1 tablet Common HCl HCl Trisha Spirit - [facility] Donepezil Donepezil Yes Lilly 1 tablet Common HCl HCl Trisha at bedtime Spiri t - [facility] Eliquis 5 Eliquis 5 Yes Lilly one Comm on mg mg [place] [facility] Glimepiride Glimepiride Yes Lilly 1 tablet Common [place] with Spirit breakfast - [facility] or the [facility] meal of Medical the day [place] Glimepiride Glimepiride No 1{table QD Glimepirid 4 MG 4 MG t_with_ e 4 MG breakfa _or_ he_firs t_main_ meal_of _the_da y} Latanoprost Latanoprost No Latanopros t Simvastatin Simvastatin No 1{table QD Simvastati 40 MG 40 MG t_in_ n 40 MG e_eveni ng} Amlodipine Amlodipine No 1{table QD Amlodipine Besylate 10 Besylate 10 t} Besylate MG MG 10 MG Eliquis 5 Eliquis 5 No Eliquis 5 mg 5 mg mg 5 mg mg 5 mg Tamsulosin Tamsulosin No 1{capsu QD Tamsulosin HCl 0.4 MG HCl 0.4 MG le} HCl 0.4 MG Donepezil Donepezil No 1{table QD Donepezil HCl 10 MG HCl 10 MG t_at_be HCl 10 MG dtime} Memantine Memantine No 1{table BID Memantine HCl 10 MG HCl 10 MG t} HCl 10 MG Potassium Potassium No Potassium Chloride Chloride Chloride [facility] Katie ER Katie [facility] No known No [facility] Vital Signs Vital Name Observation Time Observation Value Comments Source Systolic blood 2020-05-31 16:45:00 135 mm[Hg] Univer sity [facility] Diastolic blood 2020-05-31 16:45:00 79 mm[Hg] [facility] 2020-05-31 16:45:00 57 /min [facility] Respiratory rate 2020-05-31 16:45:00 29 /min [facility] Oxygen saturation in 2020-05-31 16:45:00 98 /min University of Arterial blood by [facility] Pulse oximetry Branch Body temperature 2020-05-31 15:45:00 36 Pur[facility] ersity of [facility] Body height 2020-05-23 18:20:00 170.2 cm Universi ty of [facility] Body weight 2020-05-23 18:20:00 86.6 kg Universi ty of [facility] BMI 2020-05-23 18:20:00 29.89 kg/m2 Universi ty of [facility] Systolic blood 2020-05-31 16:45:00 135 mm[Hg] Univer sity of pressure [facility] Diastolic blood 2020-05-31 16:45:00 79 mm[Hg] Unive rsity of [facility] Heart rate 2020-05-31 16:45:00 57 /min Universi ty of [facility] Respiratory rate 2020-05-31 16:45:00 29 /min [facility] Oxygen saturation in 2020-05-31 16:45:00 98 /min University of Arterial blood by [facility] Pulse oximetry Branch Body temperature 2020-05-31 15:45:00 36 [facility] ersity of [facility] Body height 2020-05-23 18:20:00 170.2 cm Universi ty of [facility] Body weight 2020-05-23 18:20:00 86.6 kg Universi ty of [facility] BMI 2020-05-23 18:20:00 29.89 kg/m2 Universi ty of [facility] height 2020-01-03 14:00:00 68 [in_i] Common S pirit - [facility] weight 2020-01-03 14:00:00 192 [lb_av] Common S pirit [facility] temperature 2020-01-03 14:00:00 97.5 [degF] Common S pirit [facility] bmi 2020-01-03 14:00:00 29.19 kg/m2 Common S pirit - [facility] blood pressure 2020-01-03 14:00:00 132 mm[Hg] Common Spirit - systolic [facility] blood pressure 2020-01-03 14:00:00 82 mm[Hg] Common Spirit - diastolic [facility] Systolic (mm Hg) 2022-03-05 20:15:00 Jacek rial Ke Diastolic (mm Hg) 2022-03-05 20:15:00 Mem orial [place] Heart Rate 2022-03-05 20:15:00 [facility] [place] Height 2022-03-05 20:15:00 5 [ft_i] [facility] Weight 2022-03-05 20:15:00 [facility] [place] BMI Calculated 2022-03-05 20:15:00 Memori al [place] Systolic (mm Hg) 2021-09-04 20:00:00 Jacek rial Ke Diastolic (mm Hg) 2021-09-04 20:00:00 Mem orial [place] Heart Rate 2021-09-04 20:00:00 [facility] Respitory Rate 2021-09-04 20:00:00 Memori al Ke Height 2021-09-04 20:00:00 165.1 cm [facility] Weight 2021-09-04 20:00:00 [facility] [place] BMI Calculated 2021-09-04 20:00:00 Memori al [place] Systolic (mm Hg) 2021-05-03 19:42:00 Jacek rial [place] Diastolic (mm Hg) 2021-05-03 19:42:00 Mem orial [place] Heart Rate 2021-05-03 19:42:00 Memorial [facility] Respitory Rate 2021-05-03 19:42:00 Memori al Ke Height 2021-05-03 19:42:00 166.37 cm [facility] [place] Weight 2021-05-03 19:42:00 [facility] [place] BMI Calculated 2021-05-03 19:42:00 Memori al Ke Systolic (mm Hg) 2021-01-30 20:17:00 Jacek rial Ke Diastolic (mm Hg) 2021-01-30 20:17:00 Mem orial [place] Heart Rate 2021-01-30 20:17:00 [facility] [place] Respitory Rate 2021-01-30 20:17:00 Memori al Ke Height 2021-01-30 20:17:00 167.64 cm [facility] [place] Weight 2021-01-30 20:17:00 [facility] [place] BMI Calculated 2021-01-30 20:17:00 Memori al Ke Systolic blood 2020-10-30 18:17:00 131 mm[Hg] [facility] pressure Diastolic blood 2020-10-30 18:17:00 74 mm[Hg] [facility] pressure Heart rate 2020-10-30 18:17:00 67 /min [facility] Body temperature 2020-10-30 18:17:00 36.06 Purvi [facility] Respiratory rate 2020-10-30 18:17:00 20 /min [facility] Body weight 2020-10-30 18:17:00 87.952 kg [facility] BMI 2020-10-30 18:17:00 30.37 kg/m2 [facility] Oxygen saturation in 2020-10-30 18:17:00 97 /min [facility] Arterial blood by Pulse oximetry Diastolic (mm Hg) 2020-10-06 18:48:00 Mem orial Ke Heart Rate 2020-10-06 18:48:00 Memorial Ke Respitory Rate 2020-10-06 18:48:00 Memori al Ke Height 2020-10-06 18:48:00 167.64 cm [facility] Ke Weight 2020-10-06 18:48:00 [facility] [place] BMI Calculated 2020-10-06 18:48:00 Memori al [place] Systolic (mm Hg) 2020-10-06 18:48:00 Jacek rial Ke Systolic (mm Hg) 2020-06-06 18:39:00 Jacek rial [place] Diastolic (mm Hg) 2020-06-06 18:39:00 Mem orial Ke Heart Rate 2020-06-06 18:39:00 [facility] [place] Respitory Rate 2020-06-06 18:39:00 Memori al [place] Height 2020-06-06 18:39:00 165.1 cm [facility] Weight 2020-06-06 18:39:00 [facility] [place] BMI Calculated 2020-06-06 18:39:00 Memori al Ke Body height 2020-05-30 16:43:00 170.2 cm [facility] Systolic (mm Hg) 2020-03-07 19:55:00 Jacek rial [place] Diastolic (mm Hg) 2020-03-07 19:55:00 Mem orial [place] Heart Rate 2020-03-07 19:55:00 [facility] [place] Respitory Rate 2020-03-07 19:55:00 Memori al [place] Height 2020-03-07 19:55:00 170.18 cm [facility] Weight 2020-03-07 19:55:00 [facility] BMI Calculated 2020-03-07 19:55:00 Memori al Ke Systolic (mm Hg) 2019-12-21 14:58:00 Jacek rial Ke Diastolic (mm Hg) 2019-12-21 14:58:00 Mem orial [place] Heart Rate 2019-12-21 14:58:00 [facility] [place] Respitory Rate 2019-12-21 14:58:00 Memori al [place] Height 2019-12-21 14:58:00 167.64 cm [facility] Weight 2019-12-21 14:58:00 [facility] BMI Calculated 2019-12-21 14:58:00 Memori al Ke Systolic (mm Hg) 2019-09-09 19:07:00 Jacek rial [place] Diastolic (mm Hg) 2019-09-09 19:07:00 Mem orial Ke Heart Rate 2019-09-09 19:07:00 [facility] Respitory Rate 2019-09-09 19:07:00 Memori al [place] Height 2019-09-09 19:07:00 167.64 cm [facility] Weight 2019-09-09 19:07:00 [facility] [place] BMI Calculated 2019-09-09 19:07:00 Memori al [place] BMI Calculated 2018-01-02 20:48:00 Memori al Ke Weight 2018-01-02 20:48:00 [facility] [place] Height 2018-01-02 20:48:00 165.1 cm [facility] Respitory Rate 2018-01-02 20:48:00 Memori al Ke Heart Rate 2018-01-02 20:48:00 [facility] Systolic (mm Hg) 2018-01-02 20:48:00 Jacek rial [place] Diastolic (mm Hg) 2018-01-02 20:48:00 Mem orial [place] Procedures Procedure Date / Time Performed Performing Clinician Lisa e US ABDOMEN COMPLETE 2021-09-13 15:39:28 Patti Barron [facility] CONSENT/REFUSAL FOR 2021-09-13 14:57:35 [facility] Branch TREATMENT ASSIGNMENT OF BENEFITS 2021-09-13 14:56:51 Doctor Unassigned, No [facility] Medical Branch ECG 12-LEAD 2020-10-30 17:19:13 Yariel Garcia tc Gaitan HEMOGLOBIN A1C 2020-10-30 16:56:00 Yariel Garcia tc Gaitan HEMOGLOBIN 2020-10-30 16:56:00 [facility] tc Gaitan CREATININE LEVEL 2020-10-30 16:56:00 Yariel Garcia LIPID PANEL 2020-10-30 16:56:00 Yariel Garcia tc Gaitan ESTIMATED GFR 2020-10-30 16:56:00 Jose Yariel [facility] Gaitna EGD (ENDO) 2020-05-31 15:20:34 Markell Rober [place] [facility] Branch POCT GLUCOSE(AGE 2020-05-31 14:32:00 [facility] >30DA[facility]) Medical Branch POCT GLUCOSE 2020-05-31 14:31:00 Patti Barron [facility] (AUTOMATED) Medical Branch COVID-19 (ID NOW RAPID 2020-05-30 15:33:00 Patti Barron [facility] TESTING) Medical Branch ASSIGNMENT OF BENEFITS 2020-05-30 15:20:00 Doctor Unassigned, No [facility] Branch DSU PRE-OP 2020-05-17 06:01:00 Doctor Unassigned, No [facility] CT ABDOMEN PELVIS W WO 2020-05-05 19:52:32 Patti Barron [facility] CONTRAST Medical Branch NOTICE OF PRIVACY 2020-05-05 19:20:27 Doctor Unassigned, No [facility] PRACTICES Name Medical Branch CONSENT/REFUSAL FOR 2020-05-05 19:20:00 [facility] Un[facility]igned, [facility] Name Medical Branch TREATMENT ASSIGNMENT OF BENEFITS 2020-05-05 19:19:29 Doctor Unassigned, No [facility] Branch TTE COMPLETE, W 2020-01-12 17:19:36 Mustapha Jama spital EDA, W DOPPLER ([id number]) Plan of Care Planned Activity Planned Date Details Comments Source Future Scheduled 2022-08-14 COVID-19 VACCINE (#1) [facility] 22:52:20 [code = COVID-19 VACCINE (#1)] Future Scheduled 2022-08-14 65[facility] [facility] 22:52:20 VACCINE (1 - PCV) [code = 65+ PNEUMOCOCCAL VACCINE (1 - PCV)] Future Scheduled 2022-08-14 DIABETES: RETINAL EYE [facility] 22:52:20 EXAM [code = DIABETES: RETINAL EYE EXAM] Future Scheduled 2022-08-14 DIABETIC FOOT EXAM [facility] 22:52:20 [code = DIABETIC FOOT EXAM] Future Scheduled 2022-08-14 SHINGLES VACCINES (1 [facility] 22:52:20 of 2) [code = SHINGLES VACCINES (1 of 2)] Future Scheduled 2022-08-14 [facility]FL[facility]ENZA [facility]ACCINE [facility] 22:52:20 [code = INFLUENZA VACCINE] Future Scheduled 2022-03-06 COVID-19 VACCINE (#1) [facility] 20:25:59 [code = COVID-19 VACCINE (#1)] Future Scheduled 2022-03-06 65+ [facility] Test 20:25:59 VACCINE (1 - PCV) [code = 65+ PNEUMOCOCCAL VACCINE (1 - PCV)] Future Scheduled 2022-03-06 DIABETES: RETINAL EYE [facility] 20:25:59 EXAM [code = DIABETES: RETINAL EYE EXAM] Future Scheduled 2022-03-06 DIABETIC FOOT EXAM [facility] Test 20:25:59 [code = DIABETIC FOOT EXAM] Future Scheduled 2022-03-06 SHINGLES VACCINES (1 [facility] 20:25:59 of 2) [code = SHINGLES VACCINES (1 of 2)] Future Scheduled 2022-03-06 [facility]ZA [facility]ACCINE [facility] 20:25:59 [code = INFLUENZA VACCINE] Future Scheduled 65+ [facility] [facility] VACCINE (1 of 2 - PPSV23) [code = 65+ PNEUMOCOCCAL VACCINE (1 of 2 - PPSV23)] Future Scheduled DIABETES: RETINAL EYE [facility] EXAM [code = DIABETES: RETINAL EYE EXAM] Future Scheduled [facility] [code = DIABETIC FOOT EXAM] Future Scheduled COVID-19 VACCINE (1) [facility] [code = COVID-19 VACCINE (1)] Future Scheduled Hepatitis C screening [facility] Test (procedure) [code = 926054224] Future Scheduled SHINGLES VACCINES (#1) [facility] [code = SHINGLES VACCINES (#1)] Future Scheduled INFLUENZA VACCINE [facility] Test [code = INFLUENZA VACCINE] Encounters Start End Encounter Admission Attending Care Care Encounter Source Date/Time Date/Time Type Type Clinicians Facility Department ID 2021-04-18 Outpatient STLMLC STLMLC [id number] Common 12:38:55 [id number] [facility] 2021-04-18 Outpatient STLMLC STLMLC [id number] Common 12:14:27 [id number] [facility] 2021-04-18 Outpatient STLMLC STLMLC [id number] Common 12:09:09 [id number] [facility] 2021-04-18 Outpatient STLMLC STLMLC [id number] Common 11:54:38 [id number] [facility] 2021-04-18 Outpatient STLMLC STLMLC [id number] Common 11:54:14 [id number] [facility] 2021-04-18 Outpatient STLMLC STLMLC [id number] Common 11:52:55 [id number] [facility] 2021-04-18 Outpatient STLMLC STLMLC [id number] Common 11:48:25 [id number] [facility] 2021-04-18 Outpatient STLMLC STLMLC [id number] Common 11:45:22 [id number] [facility] 2021-01-21 Outpatient R PJ [facility] [id number] Univers 02:23:09 PATTI Spencer [facility] 2022-12-04 2022-12-04 Outpatient LEANDRO REEVES [id number] Memoria 09:00:00 09:00:00 20 joaquim Dempsey 2022-12-04 2022-12-04 Outpatient MHIE MHIE [id number] Memoria 09:00:00 09:00:00 20 joaquim Dempsey 2022-03-12 2022-03-12 Emergency EM Kavon, [facility] ER [id number] LTAC[facility] 16:54:00 22:03:[address] 2022-03-05 2022-03-06 Outpatient MHIE MNA [id number] Memoria 20:00:00 05:59:59 Neurology 19 l Darrian Colladoann 2022-03-05 2022-03-06 Outpatient MHIE MNA [id number] Memoria 20:00:00 05:59:59 Neurology 19 l Darrian Colladoann 2022-03-05 2022-03-05 Outpatient NAYELI Nielsen [id number] 14:00:00 23:59:59 Travis 19 Maurice 2022-03-05 2022-03-05 Outpatient MHIE MHIE [id number] Memoria 14:00:00 14:00:00 19 joaquim Dempsey 2021-09-13 2021-09-13 Outpatient R [facility] [id number] Univers 09:55:59 23:59:00 PATTI Spencer [facility] 2021-09-13 2021-09-13 [facility] 1.2.840.114 [id number] Univers 09:55:59 23:59:00 Encounter Patti spencer MEEKER 350.1.13.10 dot [facility] 4.2.7.2.686 [facility] [id number] [address] 2021-09-04 2021-09-05 Outpatient nullFlavo MNA [id number] Memoria 20:30:00 04:59:59 r Neurology 18 l Darrian Ke 2021-09-04 2021-09-05 Outpatient nullFlavo MNA [id number] Memoria 20:30:00 04:59:59 r Neurology 18 l Darrian Dempsey 2021-09-04 2021-09-04 Outpatient SRINI NielsenSCHER MHMISCHER [id number] 15:30:00 23:59:59 Travis 18 [place] 2021-09-04 2021-09-04 Outpatient MHIE IE [id number] Memoria 15:30:00 15:30:00 18 joaquim Dempsey 2021-05-03 2021-05-04 Outpatient nullFlavo MNA [id number] Memoria 20:00:00 05:59:59 r Neurology 17 l Darrian Dempsey 2021-05-03 2021-05-04 Outpatient nullFlavo MNA [id number] Memoria 20:00:00 05:59:59 r Neurology 17 l Darrian Dempsey 2021-05-03 2021-05-03 [id number] 14:00:00 23:59:59 Travis 17 [place] 2021-05-03 2021-05-03 Outpatient MHIE IE [id number] Memoria 14:00:00 14:00:00 17 joaquim Dempsey 2021-01-30 2021-01-31 Outpatient nullFlavo MNA [id number] Memoria 20:15:00 05:59:59 r Neurology 16 l Darrian Dempsey 2021-01-30 2021-01-31 Outpatient nullFlavo MNA [id number] Memoria 20:15:00 05:59:59 r Neurology 16 l Darrian Dempsey 2021-01-30 2021-01-30 Outpatient SHERRY NielsenDESCHDELORES [facility] [id number] 14:15:00 23:59:59 Travis 16 [place] 2021-01-30 2021-01-30 Outpatient MHIE IE [id number] Memoria 14:15:00 14:15:00 16 l Ke 2020-10-30 2020-10-30 Office Jose, 1.2.840.1 [id number] Methodi 13:05:44 13:48:26 Visit Yariel 79533.1.1 571 [facility] 3.430.2.7 Hospit a .3.189704 l .8 2020-10-30 2020-10-30 Lab Jose, 1.2.840.1 [id number] Methodi 11:41:56 11:46:[address] Arnie 3.430.2.7 Hospit a .3.453116 l .8 2020-10-30 2020-10-30 Santana Young, 1.2.840.1 [id number] Methodi 00:00:00 00:00:00 Only Nicole 13457.1.[address] 3.430.2.7 Hospit a .3.693172 l .8 2020-10-30 2020-10-30 Travel 1.2.840.1 1.2.640.658 [id number] Methodi 00:00:00 00:00:[address] 3.430.2.7 0.2.7.3.698 Ho spita .3.136564 084.8 l .8 2020-10-30 2020-10-30 Génesis Gandara 1.2.840.1 [id number] Methodi 00:00:00 00:00:[address] 3.430.2.7 Hospit a .3.907814 l .8 2020-10-19 2020-10-19 Telephone Jose, 1.2.840.1 [id number] Methodi 00:00:00 00:00:[address] Arnie 3.430.2.7 Hospit a .3.115971 l .8 2020-10-06 2020-10-07 Outpatient nullFlavo MNA [id number] Memoria 19:00:00 04:59:59 r Neurology 15 l Darrian Dempsey 2020-10-06 2020-10-07 Outpatient nullFlavo MNA [id number] Memoria 19:00:00 04:59:59 r Neurology 15 l Darrian Dempsey 2020-10-06 2020-10-06 Outpatient Gia [facility] [id number] 14:00:00 23:59:59 Travis Richards 2020-10-06 2020-10-06 Outpatient MHIE MHIE [id number] Memoria 14:00:00 14:00:00 15 joaquim Dempsey 2020-09-09 2020-09-10 Emergency EM Prerna, [facility] ER [id number] [facility]AC[facility] 22:27:00 01:40:00 Bruce Cernau s [facility] 2020-08-02 2020-08-02 Orders [place], 1.2.840.1 [id number] Methodi 00:00:00 00:00:00 Only [place]o 15376.1.[address] 3.430.2.7 Hospit a .3.084772 l .8 2020-06-06 2020-06-07 Outpatient nullFlavo MNA [id number] Memoria 19:15:00 04:59:59 r Neurology 14 l [place] 2020-06-06 2020-06-07 Outpatient nullFlavo MNA [id number] Memoria 19:15:00 04:59:59 r Neurology 14 l Darrian Dempsey 2020-06-06 2020-06-06 Outpatient G[facility] [id number] 14:15:00 23:59:59 Travis 14 [place] 2020-06-06 2020-06-06 Outpatient MHIE MHIE [id number] Memoria 14:15:00 14:15:00 14 joaquim Ke 2020-05-31 2020-05-31 [facility] 1.2.840.114 [id number] [facility] 08:08:00 11:30:00 Encounter Patti spencer 350.1.13.10 [place] [id number] Med [address] 2020-05-31 2020-05-31 [facility] 1.2.840.114 [id number] 08:08:00 11:30:00 Encounter Patti spencer 350.1.13.10 [place] 4.2.7.2.686 Surgical [id number] [place] [address] 2020-05-30 2020-05-30 Office Jama, 1.2.840.1 [id number] Methodi 10:37:18 14:36:14 Visit Mustapha Fernando50.1.[address] 3.430.2.7 Hospit a .3.451751 l .8 2020-05-30 2020-05-30 Laboratory Only, [facility] 1.2.840.114 [id number] 09:23:40 09:38:40 Only Test [place] 350.1.13.10 [place] 4.2.7.2.686 [place] [id number] 353 2020-05-30 2020-05-30 Laboratory Only, [facility] Test [facility] 1.2.840. 114 [id number] Univers 09:23:40 09:38:40 Only Patti Barron 350.1.1 3.10 [place] [id number] [facility] 353 Branch 2020-05-30 2020-05-30 Outpatient R PJ [facility] [id number] Univers 09:15:00 09:15:00 PATTI Spencer f [facility] 2020-05-30 2020-05-30 Travel 1.2.840.1 1.2.882.338 [id number] Methodi 00:00:00 00:00:[address] 3.430.2.7 0.2.7.3.698 [facility] .3.374974 084.8 l .8 2020-05-30 2020-05-30 Orders Doctor MIRI 1.2.840.114 [id number] Univers 00:00:00 00:00:00 Only Unassigned, FERNANDA 350.1.13.[address] [facility] 4.2.7.2.686 [place] [id number] [facility] 009 Branch 2020-05-22 2020-05-22 Telephone Wiley 1.2.840.1 [id number] Methodi 00:00:00 00:00:00 Mustap[address] Traylor 42619.1.[address] 3.430.2.7 Hospit a .3.143420 l .8 2020-05-22 2020-05-22 Travel 1.2.840.1 1.2.608.470 [id number] Methodi 00:00:00 00:00:[address] 3.430.2.7 0.2.7.3.698 Ho spita .3.666917 084.8 l .8 2020-05-05 2020-05-05 [facility] 1.2.840.114 [id number] Univers 13:25:43 23:59:00 Encounter Patti spencer 350.1.13.10 [place] 4.2.7.2.686 [facility] [id number] [address] 2020-05-05 2020-05-05 Outpatient R [facility] [id number] Univers 00:00:00 00:00:00 PATTI Spencer o f [facility] 2020-05-03 2020-05-03 Travel 1.2.840.1 1.2.270.702 [id number] Methodi 00:00:00 00:00:[address] 3.430.2.7 0.2.7.3.698 Ho spita .3.528525 084.8 l .8 2020-04-20 2020-04-20 Ambulatory nullFlavo MNA [id number] Memoria 16:00:00 16:00:00 Pre-Reg r Neurology 11 l Darrian Dempsey 2020-04-20 2020-04-20 Ambulatory nullFlavo MNA [id number] Memoria 16:00:00 16:00:00 Pre-Reg r Neurology 11 l Darrian Dempsey 2020-04-20 2020-04-20 Outpatient NAYELI Nielsen LO [id number] 10:00:00 10:00:00 Travis Richards 2020-03-07 2020-03-08 Outpatient nullFlavo MNA [id number] Memoria 19:15:00 05:59:59 r Neurology 13 l Darrian Dempsey 2020-03-07 2020-03-08 Outpatient nullFlavo MNA [id number] Memoria 19:15:00 05:59:59 r Neurology 13 l [place] 2020-03-07 2020-03-07 Outpatient SHERRY NielsenDESCHER MISCHER [id number] 13:15:00 23:59:59 Travis 13 [place] 2020-03-07 2020-03-07 Outpatient MHIE MHIE [id number] Memoria 13:15:00 13:15:00 13 l [place] 2020-02-08 2020-02-08 Ambulatory nullFlavo MNA [id number] Memoria 15:00:00 15:00:00 Pre-Reg r Neurology 08 l [facility] [place] 2020-02-08 2020-02-08 Ambulatory nullFlavo MNA [id number] Memoria 15:00:00 15:00:00 Pre-Reg r Neurology 08 l [place] [place] 2020-02-08 2020-02-08 Outpatient MHIE MHIE [id number] Memoria 09:00:00 09:00:00 11 l [place] 2020-02-08 2020-02-08 Outpatient MHIE MHIE [id number] Memoria 09:00:00 09:00:00 08 l [place] 2020-02-08 2020-02-08 [id number] 09:00:00 09:00:00 Travis 08 [place] 2020-01-11 2020-01-11 Office Jama, 1.2.840.1 [id number] Methodi 13:06:12 15:55:20 Visit Mustapha Traylor [id number] [id number] Hospit a .[id number] l .8 2020-01-11 2020-01-11 Travel 1.2.840.1 [id number] Methodi 00:00:00 00:00:[id number] 3.430.2.7 0.2.7.3.698 Ho spita .[id number] 084.8 l .8 2020-01-03 2020-01-03 [facility] [id number] Co mmon 00:00:00 00:00:00 VISIT NEW Spir it PT LEVEL 4 - [facility] 2019-12-21 2019-12-22 Outpatient nullFlavo MNA [id number] Memoria 14:45:00 04:59:59 r Neurology 12 l Darrian Colladoann 2019-12-21 2019-12-22 Outpatient nullFlavo MNA [id number] Memoria 14:45:00 04:59:59 r Neurology 12 l Darrian Ke 2019-12-21 2019-12-21 Outpatient SHERRY NielsenMISCHER MISCHER [id number] 09:45:00 23:59:59 Travis 12 Maurice 2019-12-21 2019-12-21 Outpatient MHIE MHIE [id number] Memoria 09:45:00 09:45:00 12 [place] 2019-12-14 2019-12-14 Ambulatory nullFlavo MNA [id number] Memoria 18:15:00 18:15:00 Pre-Reg r Neurology 10 l Darrian [place] 2019-12-14 2019-12-14 Ambulatory nullFlavo MNA [id number] Memoria 18:15:00 18:15:00 Pre-Reg r Neurology 10 l Darrian [place] 2019-12-14 2019-12-14 Outpatient MHIE MHIE [id number] Memoria 13:15:00 13:15:00 10 joaquim Ke 2019-12-14 2019-12-14 Outpatient SRINI NielsenSCHER MISCHER [id number] 13:15:00 13:15:00 Travis 10 Maurice 2019-12-03 2019-12-03 [facility] [id number] Common 14:15:00 14:15:00 t Specialty/U Sp [facility]on Specialty rology - [facility] 2019-09-09 2019-09-10 Outpatient nullFlavo MNA [id number] Memoria 18:45:00 04:59:59 r Neurology 09 l Darrian Coll[place] 2019-09-09 2019-09-10 Outpatient nullFlavo MNA [id number] Memoria 18:45:00 04:59:59 r Neurology 09 l Darrian Colladoann 2019-09-09 2019-09-09 Outpatient Gia MHMISCHER MISCHER [id number] 13:45:00 23:59:59 Travis Silvia Richards 2019-09-09 2019-09-09 Outpatient MHIE MHIE [id number] Memoria 13:45:00 13:45:00 09 joaquim [place] 2019-02-16 2019-02-17 Outpatient nullFlavo MNA [id number] Memoria 15:15:00 05:59:59 r Neurology 07 joaquim [place] 2019-02-16 2019-02-17 Outpatient nullFlavo MNA [id number] Memoria 15:15:00 05:59:59 r Neurology 07 joaquim [place] 2019-02-16 2019-02-16 Outpatient Gia MISCHER MISCHER [id number] 09:15:00 23:59:59 Travis Ana [place] 2019-02-16 2019-02-16 Outpatient MHIE MHIE [id number] Memoria 09:15:00 09:15:00 07 joaquim Ke 2018-07-03 2018-07-03 Outpatient MHIE MHIE [id number] Memoria 15:45:00 15:45:00 06 joaquim Ke 2018-07-03 2018-07-03 Outpatient MHIE MHIE [id number] Memoria 15:45:00 15:45:00 06 joaquim Dempsey 2018-01-02 2018-01-03 Outpatient nullFlavo MNA [id number] Memoria 20:30:00 04:59:59 r Neurology 05 joaquim [place] 2018-01-02 2018-01-03 Outpatient nullFlavo MNA [id number] Memoria 20:30:00 04:59:59 r Neurology 05 joaquim [place] 2018-01-02 2018-01-02 Outpatient Gia, MHMISCHER MHMISCHER [id number] 15:30:00 23:59:59 Travis Bal [place] 2018-01-02 2018-01-02 Outpatient MHIE MHIE [id number] Memoria 15:30:00 15:30:00 05 joaquim Dempsey 2017-12-17 2017-12-17 Outpatient MHIE MHIE [id number] Memoria 13:15:00 13:15:00 04 joaquim Dempsey 2017-12-17 2017-12-17 Outpatient INÉS INÉS [id number] Memoria 13:15:00 13:15:00 04 joaquim Dempsey 2017-08-12 2017-08-12 Outpatient INÉS INÉS [id number] Memoria 14:00:00 14:00:00 02 joaquim Dempsey 2017-08-12 2017-08-12 Outpatient INÉS INÉS [id number] Memoria 14:00:00 14:00:00 02 joaquim Dempsey 2017-08-05 2017-08-05 Outpatient INÉS INÉS [id number] Memoria 13:00:00 13:00:00 01 joaquim Dempsey 2017-08-05 2017-08-05 Outpatient INÉS INÉS [id number] Memoria 13:00:00 13:00:00 01 joaquim Dempsey 2017-05-06 2017-05-06 Outpatient INÉS INÉS [id number] Memoria 13:00:00 13:00:00 00 joaquim Dempsey 2017-05-06 2017-05-06 Outpatient INÉS INÉS [id number] Memoria 13:00:00 13:00:00 00 joaquim Dempsey Results Test Description Test Time Test Comments Results Result Comments Source D-DIMER QUANT 2022-03-12 20:53:00 Test Item Value Reference Range Interpretation Comme nts D-DIMER QUANT (test code = 195 D-DU 0-400 N * * Alere Triage values presented in units DDIMER) of mass (ng/mL) of D-dimer, also known as D-dimer units ( D-DU).* Cut-off: 400 ng/mL Results of the D-Dimer test should always be interpretedi n conjunction with the patient's medic al history, clinicalpresent ation, and other findings. Clinical diagno sis shouldnot be based on the results of D-Dimer alone.Patients with a distal D VT may have a normal D-Dimer result. COMPREHENSIVE METABOLIC [id number] 18:21:00 Test Item Value Reference Range Interpretation Comments SODIUM (test code = 139 MMOL/L 133-145 N NA) POTASSIUM (test code 3.1 MMOL/L 3.6-5.2 L = K) CHLORIDE (test code 102 MMOL/L 100-108 N = CL) CARBON DIOXIDE (test 28 MMOL/L 22-32 N code = CO2) GLUCOSE (test code = 176 MG/DL 65-99 H Results of this assay GLU) method may be f alsely depressed orele vated if patient is taki ng sulfasalazine. BLOOD UREA NITROGEN 16 MG/DL 6-20 N (test code = BUN) GLOMERULAR 78 35-81 N The Glomerular FILTRATION RATE Filtration R ate is a (test code = GFR) calculated parameterbased on serum Creatinine, pat ient age and sex. GFR va luesless than 60 mL/min/ 1.73 square meters a re indicative ofCh ronic Kidney Disease. Values less than 15 mL/min/1.73squa re meters indicate Kidney failure. The calculation for GFR is based on the CK D-EPI (2020) calculat ion. This formulais race indifferent and is the recommended for danielle for GFRby the Natio nal Kidney Foundati on for Adults.The GFR will not calculate if th e sex is unknown or if thepatient's ag e is <18 years. CREATININE (test 0.98 MG/DL 0.60-1.00 N code = CREAT) TOTAL PROTEIN (test 7.0 G/DL 6.4-8.2 N code = PROT) ALBUMIN (test code = 3.3 G/DL 3.4-5.0 L ALB) GLOBULIN (test code 3.7 G/DL 1.5-3.8 N = GLOB) ALBUMIN/GLOBULIN 0.9 1.1-2.2 L RATIO (test code = A/G) CALCIUM (test code = 8.7 MG/DL 8.7-10.5 N CA) BILIRUBIN TOTAL 0.8 MG/DL 0.0-1.0 N (test code = BILT) SGOT/AST (test code 27 Units/L 15-37 N Results of this assay = AST) method may be f alsely depressed orele vated if patient is taki ng sulfasalazine. SGPT/ALT (test code 52 Units/L 30-65 N Results of this assay = ALT) method may be f alsely depressed orele vated if patient is taki ng sulfasalazine. ALKALINE PHOSPHATASE 96 Units/L 50-136 N TOTAL (test code = ALKP) [id number] 18:21:00 Test Item Value Reference Range Interpretation Comments MAGNESIUM (test code = MAG) 2.0 MG/DL 1.8-2.4 N THROMBOPLASTIN TIME [id number] 17:48:00 Test Item Value Reference Range Interpretation Comments THROMBOPLASTIN TIME 29.3 SECONDS 24.7-38.0 N *Therap eutic level PARTIAL (test code = for hep raghavendra: 1.5 - PTT) 2.5 times the average patient value of 30.0 seconds. The aP TT tet should not be used to evaluat e low moleculat weigh t heparin anticoagulant therapy. Is patient on anticoagulants? UnknownCBC W/AUTO [id number] 17:48:00 Test Item Value Reference Range Interpretation Comments WHITE BLOOD CELL (test code = 11.45 x10 3/uL 4.80-10.80 H WBC) RED BLOOD CELL (test code = 3.95 x10 6/uL 4.7-6.1 L RBC) HEMOGLOBIN (test code = HGB) 12.4 G/DL 14.0-17.0 L HEMATOCRIT (test code = HCT) 36.3 % 42-52 L MEAN CELL VOLUME (test code = 91.9 FL 80-94 N MCV) MEAN CELL HGB (test code = 31.4 PG 27-31 H MCH) MEAN CELL HGB CONCENTRATION 34.2 G/DL 33-37 N (test code = MCHC) RED CELL DISTRIBUTION WIDTH 12.7 % 11.5-14.5 N (test code = RDW) PLATELET COUNT (test code = 241 x10 3/uL 150-450 N PLT) MEAN PLATELET VOLUME (test 10.0 FL 7.4-10.4 N code = MPV) NEUTROPHIL % (test code = NT%) 74.8 % 42-86 N LYMPHOCYTE % (test code = LY%) 11.9 % 24-44 L MONOCYTE % (test code = MO%) 11.6 % 0.0-4.0 H EOSINOPHIL % (test code = EO%) 1.4 % 0.0-2.7 N BASOPHIL % (test code = BA%) 0.3 % 0.0-0.5 N NEUTROPHIL # (test code = NT#) 8.57 x10 3/uL 1.8-7.7 H LYMPHOCYTE # (test code = LY#) 1.36 x10 3/uL 1.0-4.8 N MONOCYTE # (test code = MO#) 1.33 x10 3/uL 0.0-0.8 H EOSINOPHIL # (test code = EO#) 0.16 x10 3/uL 0.0-0.5 N BASOPHIL # (test code = BA#) 0.03 x10 3/uL 0.0-0.2 N ECG 12 [id number] 13:18:29 Test Item Value Reference Range Interpretation Comments Ventricular rate (test code = 253) Atrial rate (test code = 255) AR interval (test code = 266) QRSD interval (test code = 260) QT interval (test code = 264) QTC interval (test code = 265) P axis 1 (test code = 267) QRS axis 1 (test code = 268) T wave axis (test code = 270) EKG impression (test Normal sinus code = 273) rhythm-Junctional ST depression, probably normal-Borderline ECG-In automated comparison with ECG of 26-JAN-2019 14:23,-Criteria for Inferior infarct are no longer present- [id number] 01:25:00 Test Item Value Reference Range Interpretation Comments TROPONIN-I (test < 0.04 NG/ML 0.00-0.06 N - The use of serial code = TROPI) sampling and t esting protocol is a recommended pra ctice.- An elevated tro ponin level alone is often not sufficient for diagnosis of myocardial infarction.Resu lts of this assay meth od may be falsely depress ed orelevated if p atient is taking high dos es of Biotin. - XR CHEST 1 [id number] 00:08:00 [facility] 1940 Sex: M Patient Name: ANASTACIO GOMEZ Unit No: [id number] EXAMS: CPT CODE: [id number] XR CHEST 1 V 68520 Reason: chest pain PROCEDURE INFORMATION: Exam: XR Chest Exam date and time: [...] Heart size normal. Prior median sternotomy. No tra cheal/mediastinal shift. Bones/joints: No acute osseous abnormalities are identified. Other findings: Lordotic projection, mildly limiting sensitivity. IMPRESSION: 1. No acute findings. 2. Lordotic projection mildly limiting sensitivity. INTERNAL CODING PURPOSES ONLY R ESULT CODE: CVR at 0008 Reported and signed by: Miri GOMES CC: Bruce Wen DO Technologist: KARI KEE Trscrpt Dt/ (7)VRAD.VR Orig Print D/T: S: 09/10/2020 (000) [place] FSED NAME: ANASTACIO STUART [address] [facility] PHYS: [place] [phone] : 1940 AGE: 80 SEX: M LOC: ELIAS PHONE #: [phone] EXAM DATE: 09/09/2020 STATUS: PRE ER FAX #: RAD NO: DC Dt: PAGE 1 Signed ReportBASIC METABOLIC [id number] 23:14:00 Test Item Value Reference Range Interpretation [...] MG/DL 8.7-10.5 L = CA) HEPATIC FUNCTION [id number] 23:14:00 Test Item Value Reference Range Interpretation [...] 50-136 N TOTAL (test code = ALKP) [id number] 23:14:00 Test Item Value Reference Range Interpretation Comments LIPASE (test code = LIP) 376 Units/L 73-393 N [id number] 23:14:00 Test Item Value Reference Range Interpretation Comments TROPONIN-I (test < 0.04 NG/ML 0.00-0.06 N - The use of serial code = TROPI) sampling and t esting protocol is a recommended pra ctice.- An elevated tro ponin level alone is often not sufficient for diagnosis of myocardial infarction.Resu lts of this assay meth od may be falsely depress ed orelevated if p atient is taking high dos es of Biotin. BASIC METABOLIC [id number] 23:05:00 Test Item Value Reference Range Interpretation [...] MG/DL 8.7-10.5 L = CA) HEPATIC FUNCTION [id number] 23:05:00 Test Item Value Reference Range Interpretation [...] TOTAL (test Units/L 50-136 code = ALKP) [id number] 23:05:00 Test Item Value Reference Range Interpretation Comments LIPASE (test code = LIP) Units/L 73-393 [id number] 23:05:00 Test Item Value Reference Range Interpretation Comments TROPONIN-I (test code = TROPI) NG/ML 0.00-0.06 CBC W/AUTO [id number] 22:57:00 Test Item Value Reference Range Interpretation [...] Interpretation Comments POCT GLU (test code = [id number]) 211 mg/dL 70-110 H Lab Interpretation (test code = Abnormal 72050-3) [facility] [id number] 14:32:00 Test Item Value Reference Range Interpretation Comments POCT Glu (age>30days) (test code = 211 mg/dL 70-110 A 3342) Lab Interpretation (test code = Abnormal 93766-2) [facility] (ID NOW RAPID TESTING)2020-05-30 15:59:59 Test Item Value Reference Range Interpretation Comments SARS-CoV-2 Rapid ID NOW Not Detected Not Detected (test code = 17903-8) ERASTO (test code = ERASTO) ID NOW COVID-19 Assay is an isothermal nucleic acid amplification test intended for the qualitative detection of nucleic acid from SARS-CoV-2 viral RNA in nasopharyngeal (REGULATORY COMPLIANCE MANAGER) specimens. It is used under Emergency Use [...] indicated. Lab Interpretation Normal (test code = 20933-3) [facility] ABDOMEN PELVIS W WO [id number] 21:34:19 1. ?Small focal gastric wall abnormality [...] - 05/05/2020 3:35 PM CSTEXAM: CT ABDOMEN PELVIS W WO CONTRASTHISTORY: 79 years - old Male with Upper abdominal pain with weight loss.TECHNIQUE: Contrast - IV contrast was given, no oral contrast was givenNoncontrast phase - abdomen including all of liverPortal venous phase - abdomen and pelvisReconstructions - coronal and sagittal planesCOMPARISON: Upper GI series, 10/01/2017.FINDINGS:Statements: None.Thoracic: Mild dependent atelectatic [...] ofthe distal gastric body. This structure measures 1cm x 1 cm x 1.1 cm,8:43. No surrounding inflammatory change.No evidence of bowel obstruction or perienteric inflammation. The appendixis normal. Sigmoid diverticulosisVascular/Lymphatics: No enlarged lymph nodes by CT size criteria. Abdominalaorta is normal in caliber. Mild scattered calcified atherosc leroticplaque.MSK/Body Wall: No concerning bony lesion identified. 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 Tiny fat-containing umbilical herniaPeritoneum/Other: No extraluminal air. Noextraluminal fluid.IMPRESSION1. Small focal gastric wall abnormality with 1.1 cm structure protruding exophytically from the posterior aspect of the distal gastric body into thelesser sac (1.1 cm). Considerations are a small gastric wall mass(including a submucosal mass). Focal ulceration is consideredless likelywith no surrounding wall thickening or inflammatory change.2. Cholelithiasis versus smallamount of layering sludge within thegallbladder.3. Bilateral adrenal nodules and nodular thickening.Characteristics oflarger nodules compatible with adenomas.4. Mild prostatomegaly.[facility] Notes Date/Time Note Provider Source 2022-03-12 19:59:00-00:00 [facility] OR A [facility] EMERGENCY PROVIDER REPORT REPORT#:[id number] REPORT STATUS: Signed DATE:03/12/22 TIME: 1958 PATIENT: ANASTACIO GOMEZ UNIT #: [id number] ROOM/BED: AGE: 81 SEX: M PCP PHYS: Undefined Provider SERVICE AUTHOR: Natanael Sousa REGULATORY COMPLIANCE MANAGER * ALL edits or amendments must be made on the [employer]/computer document * Natanael Sousa 03/12/221958: HPI-Extremity Prob Lower Free Text HPI Notes Free Text HPI Notes PT IS AN 81 Y/O M WITH A CC OF RT LOWER EXT JORGITO A AND REDNESS. HE STATES IT STARTED YESTERDAY. HE NOTES HX OF DM, CABG, DE, HTN. General Confirmed Patient Yes Patient Type New patient Initial Greet Date/Time 03/12/22 1707 Presentation Chief Complaint RT LOWER EXT EDEMA Hx Obtained From Patient Onset Occurred Yesterday Symptom Duration Since onset Associated with Denies: Abdominal pain, Back pain, Dyspnea, Fever, Loss of consciousness, Nausea , Neck pain. Review of Systems ROS Statements All systems rev neg except as marked. Focused Review of Systems Constitutional Denies: Chills, Fatigue, Fever, Lethargy, Malais e, Recent wt loss, Weakness - generalized. Musculoskeletal Reports: Extremity pain, Extremity swelling. Past Medical History - Adult Stated Complaint SWOLLEN ANKLE Allergies Coded Allergies: No Known Allergies (09/09/20) Home Medications Reported Medications amLODIPine (NORVASC) 1 TAB PO BID DONEPEZIL (ARICEPT) 1 TAB PO HS MEMANTINE (NAMENDA) 1 TAB PO TID TAMSULOSIN ER (FLOMAX) 1 CAP PO DAILY SIMVASTATIN (ZOCOR) 1 TAB PO HS APIXABAN (ELIQUIS) 1 TAB PO DAILY POTASSIUM CHLORIDE Calculated Suicide Risk (nurs) No risk Review of Nursing Notes REVIEWED Past Medical History: Reports: Coronary artery disease, Hypertension. Additional Surgical History CABG, Stent Smoking status for patients 13 years old or olde r: Never Smoker Physical Exam Vital Signs Vital Signs First Documented: Result Date Time Pulse Ox 100 03/12 1704 B/P 160/84 03/12 170 B/P Mean 109 03/12 1704 O2 Delivery Room air 03/12 1704 Temp 36.7 03/12 170 Pulse 61 03/12 170 Resp 16 03/12 1704 Last Documented: Result Date Time Pulse Ox 100 03/12 1704 B/P 160/84 03/12 170 B/P Mean 109 03/12 1704 O2 Delivery Room air 03/12 170 Temp 36.7 03/12 170 Pulse 61 03/12 1704 Resp 16 03/12 1704 Review of Vital Signs Reviewed Focused PE General/Const General/Const Awake, Alert, No acute di stress, Well appearing, Well developed , Well hydrated, Well nourished, Cooperative, No t toxic appearing Resp/Chest Respiratory/Chest Atraumatic, Breath sounds NL, Breath sounds = bilat, No respiratory distress Cardiovascular Cardiovascular Cap refill not delayed, Peripher al circulation NL MS Lower Extrem Lower Ext/Pelvis/MS Atraumatic, Inspection NL Right Leg/Calf Swelling present, Tenderness present, Erythema present, Warmth present, R calf > L calf. MS Ankle/Foot Ankle/Foot Full range of motion, Neurologic int act Skin Text/Dict Notes ERYTHEMA RT LOWER EXT Neurologic Neurologic Oriented X3, Speech NL, No motor def icits Interpretation Diagnostics Lab Results Interpretation Results Laboratory Tests 03/12/221719: [Embedded Image Not Available] Laboratory Tests: 03/12 Chemistry Sodium (133 - 145 MMOL/L) 139 Potassium (3.6 - 5.2 MMOL/L) 3.1 L Chloride (100 - 108 MMOL/L) 102 Carbon Dioxide (22 - 32 MMOL/L) 28 BUN (6 - 20 MG/DL) 16 Creatinine (0.60 - 1.00 MG/DL) 0.98 Estimated GFR (MDRD) (35 - 81) 78 Glucose (65 - 99 MG/DL) 176 H Calcium (8.7 - 10.5 MG/DL) 8.7 Magnesium (1.8 - 2.4 MG/DL) 2.0 Total Bilirubin (0.0 - 1.0 MG/DL) 0.8 AST (15 - 37 Units/L) 27 ALT (30 - 65 Units/L) 52 Alkaline Phosphatase (50 - 136 Units/L) 96 Total Protein (6.4 - 8.2 G/DL) 7.0 Albumin (3.4 - 5.0 G/DL) 3.3 L Globulin (1.5 - 3.8 G/DL) 3.7 Albumin/Globulin Ratio (1.1 - 2.2) 0.9 L Coagulation APTT (24.7 - 38.0 SECONDS) 29.3 D-Dimer Quant (PE/DVT) (0 - 400 D-DU) 195 Hematology WBC (4.80 - 10.80 x10 3/uL) 11.45 H RBC (4.7 - 6.1 x10 6/uL) 3.95 L Hgb (14.0 - 17.0 G/DL) 12.4 L Hct (42 - 52 %) 36.3 L MCV (80 - 94 FL) 91.9 MCH (27 - 31 PG) 31.4 H MCHC (33 - 37 G/DL) 34.2 RDW Coeff of Dacia (11.5 - 14.5 %) 12.7 Plt Count (150 - 450 x10 3/uL) 241 MPV (7.4 - 10.4 FL) 10.0 Neut % (Auto) (42 - 86 %) 74.8 Lymph % (Auto) (24 - 44 %) 11.9 L [place] % (Auto) (0.0 - 4.0 %) 11.6 H Eos % (Auto) (0.0 - 2.7 %) 1.4 Baso % (Auto) (0.0 - 0.5 %) 0.3 Eos # (Auto) (0.0 - 0.5 x10 3/uL) 0.16 Baso # (Auto) (0.0 - 0.2 x10 3/uL) 0.03 Absolute Neuts (auto) (1.8 - 7.7 x10 3/uL) 8.5 7 H Absolute Lymphs (auto) (1.0 - 4.8 x10 3/uL) 1.3 6 Absolute Monos (auto) (0.0 - 0.8 x10 3/uL) 1.33 H Lab Statement Laboratory studies reviewed and considered in th e medical decision-making. Patient Discharge Departure Vital Signs/Condition Vital Signs First Documented: Result Date Time Pulse Ox 100 03/12 1704 B/P 160/84 03/12 1704 B/P Mean 109 03/12 1704 O2 Delivery Room air 03/12 1704 Temp 36.7 / 1704 Pulse 61 03/12 1704 Resp 16 03/12 1704 Last Documented: Result Date Time Pulse Ox 100 03/12 1704 B/P 160/84 / 1704 B/P Mean 109 / 1704 O2 Delivery Room air 03/12 1704 Temp 36.7 03/12 1704 Pulse 61 03/12 1704 Resp 16 03/12 1704 All vital signs available at the time of this en try have been reviewed. Miri Jacobson 03/12/222057: Re-Evaluation MDM Free Text MDM Notes Free Text MDM Notes Patient's physical exam findings are con sistent with a cellulitis to the right lower leg. DVT was considered but it is ruled ou t as his D-dimer is negative. Additionally, he is on Eliqu is which would make DVT unlikely even without the D- dimer result. I have no concern for DVT. Patient is not septic appearing, is afebrile and has only a very slightly increase in his white blood cell count to 11. He will be given Rocephin IM and PO clinda h ere in the emergency room as there is no clindamycin IM available and he will be discharged home with clindamycin. His will have him follow-up wi th the PCP in 2 days for reevaluation and strict return precautions given . Patient Discharge Departure Vital Signs/Condition Condition Stable Clinical Impression Clinical Impression Primary Impression: Cellulitis of right leg Secondary Impressions: Hypokalemia Disposition Decision Discharge )( Discharged to Home Yes )( Time 2057 )( Date 03/12/22 Discharge/Care Plan (Auto) Prescriptions Current Visit Scripts CLINDAMYCIN HCL (CLEOCIN) 450 MG PO Q8H 7 Days #63 CAPS Patient Instructions ED Cellulitis Additional Instructions Take antibiotic as prescribed. Follow-up with your primary physician in 2 days for reevaluation. Return to the emergency room i f there is any development of fever, any worsening of infection or you have an y additional concerns. Supervising Physician Note MidLv/Doc Saw Pt 1 I have personally seen the patient and I evaluat ed the patient along with involvement of the PA/REGULATORY COMPLIANCE MANAGER. I agree with the PA/REGULATORY COMPLIANCE MANAGER s findings and plan. I have performed all aspects of MDM as documented including: evaluation of the patient/ patient's condition(s), revi ew and analysis of available data, and determination of risk of patient management decisions. HPI Patient is an 81-year-old male who has a past medical history of hypertension, atrial fibrillation on Eliquis, diabetes, wilbur ia who presents the emergency room for evaluation of right lower leg redness a nd pain. Unclear when it started but the patient started complaining to h is of it yesterday. The and another family memb er examine the leg and noticed there to be redness. They are from the [facility] and are visiting for the holidays. Do have a PCP in town that they called today and was told to c ome to the emergency room for evaluation of it. The patient has not had any fe shanel. Other than the pain to the right lower leg does not have any complaints . General: Alert, no acute distress; well nourishe d, well developed HEENT: Normal cephalic, atraumatic Neck: normal inspection, normal ROM, no lymphade nopathy Heart: RRR, no murmurs Lungs: clear bilaterally; no wheezing, rales or rhonchi; no respiratory distress Extremities: no deformity; there is eryt karine to the distal aspect of the right lower leg with increased warmth and 1+ p itting edema to that area; there is no calf tenderness or swelling Skin: right lower leg as noted above Neuro: no focal neuro deficits Electronically Signed by Natanael Sousa NP on at 2006 Electronically Signed by Miri Jacobson DO on at 210 RPT #:[id number] END OF REPORT 2020-09-09 22:35:00-00:00 [facility] OR A [facility] EMERGENCY PROVIDER REPORT REPORT#:[id number] REPORT STATUS: Signed DATE:09/09/20 TIME: 2234 PATIENT: ANASTACIO GOMEZ UNIT #: [id number] ROOM/BED: AGE: 80 SEX: M PCP PHYS: No Primary or Family Ph ysician SERVICE AUTHOR: Bruce Wen * ALL edits or amendments must be made on the [employer]/computer document * HPI-Chest Pain 40 and Over General Confirmed Patient Yes Patient Type New patient Initial Greet Date/Time 09/09/202231 Presentation Chief Complaint Chest pain Hx Obtained From Patient Sudden in Onset? No Onset Occurred Hours ago (4) Symptom Duration Since onset Progression since Onset Constant Location Chest L Quality Painful Radiation No: Does not radiate. )( Migration/Movement None Severity: Current Mild Associated with Denies: Fever, Palpitations, Shortness of Breath , Vomiting. Relieved by Nothing Free Text HPI Notes Free Text HPI Notes 80-year-old male presents with complaint of chest pain. Patient states that he had chest pain approximately 4 hours prior to arrival which resolved after some aspirin. Patient states that he again had chest pain 2 hours prior to arrival he took more aspirin however he still having yobany e mild left-sided chest pain this prompted patient to present to emergency ro om for evaluation. Review of Systems ROS Statements All systems rev neg except as marked. Focused Review of Systems Cardiovascular Reports: Chest pain. Past Medical History - Adult Stated Complaint CHEST PAIN Allergies Coded Allergies: No Known Allergies (09/09/20) Home Medications Reported Medications amLODIPine (NORVASC) 1 TAB PO BID DONEPEZIL (ARICEPT) 1 TAB PO HS MEMANTINE (NAMENDA) 1 TAB PO TID TAMSULOSIN ER (FLOMAX) 1 CAP PO DAILY SIMVASTATIN (ZOCOR) 1 TAB PO HS APIXABAN (ELIQUIS) 1 TAB PO DAILY POTASSIUM CHLORIDE Review of Nursing Notes Rev avail, and agree Past Medical History: Reports: Coronary artery disease, Hypertension. Additional Surgical History CABG, Stent Physical Exam Vital Signs Vital Signs First Documented: Result Date Time Pulse Ox 96 09/09 2229 B/P 167/86 09/09 2229 B/P Mean 113 09/09 2229 O2 Delivery Room air 09/09 2229 Temp 98.2 09/09 2229 Pulse 67 09/09 2229 Resp 09/09 Last Documented: Result Date Time Pulse Ox 98 09/10 144 B/P 168/68 09/10 144 B/P Mean 101 09/10 144 O2 Delivery Room air 09/10 144 Pulse 68 09/10 144 Resp 17 09/10 144 Temp 98.2 09/09 2229 Review of Vital Signs Reviewed Focused PE General/Const General/Const Awake, Alert, No acute distress Eyes Eyes PERRL, EOMI Resp/Chest Respiratory/Chest Breath sounds NL, Breath soun ds = bilat, No respiratory distress Cardiovascular Cardiovascular Heart rate NL, Regular rhythm, H eart sounds NL Abdomen/GI Abdomen/GI Soft, Non-tender MS Lower Extrem Lower Ext/Pelvis/MS No deformity, Neurologic in tact Skin Skin No rash, Warm Neurologic Neurologic Speech NL, No motor deficits, No sen da deficits, CN II - XII intact, Cerebellar NL Interpretation Diagnostics Lab Results Interpretation Results Laboratory Tests 09/09/202245: [Embedded Image Not Available] Laboratory Tests: 09/103 2245 Chemistry Sodium (133 - 145 MMOL/L) 139 Potassium (3.6 - 5.2 MMOL/L) 3.5 L Chloride (100 - 108 MMOL/L) 100 Carbon Dioxide (22 - 32 MMOL/L) 30 BUN (6 - 20 MG/DL) 16 Creatinine (0.60 - 1.00 MG/DL) 0.99 Estimated GFR (MDRD) (42 - 98) Unable to calcul ate Glucose (65 - 99 MG/DL) 322 H Calcium (8.7 - 10.5 MG/DL) 8.6 L Total Bilirubin (0.0 - 1.0 MG/DL) 0.4 Direct Bilirubin (0.0 - 0.3 MG/DL) 0.1 Indirect Bilirubin (0.0 - 0.7 MG/DL) 0.3 AST (15 - 37 Units/L) 18 ALT (30 - 65 Units/L) 32 Alkaline Phosphatase (50 - 136 Units/L) 115 Troponin I (0.00 - 0.06 NG/ML) < 0.04 < 0.04 Total Protein (6.4 - 8.2 G/DL) 6.7 Albumin (3.4 - 5.0 G/DL) 3.9 Globulin (1.5 - 3.8 G/DL) 2.8 Albumin/Globulin Ratio (1.1 - 2.2) 1.4 Lipase (73 - 393 Units/L) 376 Hematology WBC (4.80 - 10.80 x10 3/uL) 6.07 RBC (4.7 - 6.1 x10 6/uL) 3.93 L Hgb (14.0 - 17.0 G/DL) 12.8 L Hct (42 - 52 %) 36.3 L MCV (80 - 94 FL) 92.4 MCH (27 - 31 PG) 32.6 H MCHC (33 - 37 G/DL) 35.3 RDW Coeff of [place] (11.5 - 14.5 %) 12.1 Plt Count (150 - 450 x10 3/uL) 273 MPV (7.4 - 10.4 FL) 10.2 Neut % (Auto) (42 - 86 %) 53.4 Lymph % (Auto) (24 - 44 %) 26.5 [place] % (Auto) (0.0 - 4.0 %) 13.5 H Eos % (Auto) (0.0 - 2.7 %) 5.3 H Baso % (Auto) (0.0 - 0.5 %) 1.3 H Eos # (Auto) (0.0 - 0.5 x10 3/uL) 0.32 Baso # (Auto) (0.0 - 0.2 x10 3/uL) 0.08 Absolute Neuts (auto) (1.8 - 7.7 x10 3/uL) 3.24 Absolute Lymphs (auto) (1.0 - 4.8 x10 3/uL) 1.6 1 Absolute Monos (auto) (0.0 - 0.8 x10 3/uL) 0.8 2 H Recent Impressions: RADIOLOGY - XR CHEST 1 V 09/09 7638 Report Impression - Status: SIGNED Entered: 09/10/2020 0008 IMPRESSION: 1. No acute findings. 2. Lordotic projection mildly limiting sensitivi ty. INTERNAL CODING PURPOSES ONLY RESULT CODE: CVR Impression By: [email or web address] - Miri Mckeon MD [facility] Lab Imaging Statement Laboratory radiographic studies reviewed and con sidered in the medical decision-making. ECG #1 Interpretation Date 09/09/20 Time 2235 Interpreted by ED physician JUANITO ECG Interpretation Normal rate, Normal sinus rhythm, No acute ischemic changes, No STEMI, Normal QRS, Normal ST waves, Normal T waves, Normal axis, Normal intervals Rate 71 Re-Evaluation MDM Differential Diagnosis Differential Diagnosis Acute myocardial infarct, Costochondritis, Dysrhythmia, GERD, Musculoskeletal pain, Myocardial infarctio n, Pericarditis Patient Discharge Departure Vital Signs/Condition Vital Signs First Documented: Result Date Time Pulse Ox 96 09/09 2229 B/P 167/86 09/09 2229 B/P Mean 113 09/09 2229 O2 Delivery Room air 09/09 2229 Temp 98.2 09/09 2229 Pulse 67 09/09 2229 Resp 17 09/09 2229 Last Documented: Result Date Time Pulse Ox 98 09/10 0145 B/P 168/68 09/10 0145 B/P Mean 101 09/10 0145 O2 Delivery Room air 09/10 0145 Pulse 68 09/10 0145 Resp 17 09/10 0145 Temp 98.2 09/09 2229 All vital signs available at the time of this en try have been reviewed. Condition Stable Clinical Impression Clinical Impression Primary Impression: Chest pain Disposition Decision Discharge )( Discharged to Home Yes )( Time 0127 )( Date 09/10/20 Discharge/Care Plan Counseled Regarding Diagnosi s, Lab results, Imaging studies, Need for follow-up, When to return to ED Patient Instructions ED Chest Pain, Uncertain Ca use Discharge Note I have spoken with the patie nt and/or caregivers. I have explained the patient's condition, diagnoses and parish atment plan based on the information available to me at this time. I have answered the patient's and/ or caregiver's questions and addressed any concerns. The patient and/or careg aisha have as good an understanding of the patient 's diagnosis, condition and treatment plan as can be expected at this point. The vital signs have bee n stable. The patient's condition is stable and appr opriate for discharge from the emergency department. The patient will pursue further outpatient evalu ation with the primary care physician or other designated or consulting phys ician as outlined in the discharge instructions. The patient and/or caregivers are agreeable to this plan of care and follow-up instructions have been exp lained in detail. The patient and/or caregivers have received these instructio ns in written format and have expressed an understanding of the discharge inst ructions. The patient and/or caregivers are aware that any significant change in condition or worsening of symptoms should prompt an immediate return to [facility] or the closest emergency department or a call to 911. Quality Measures BP F/U for HTN F/u with PCP/other doc, Pre-exist ing HTN Smoking Cessation Screened, non user at 0316 RPT #[id number] END OF REPORT 2020-09-09 22:33:00-00:00 [id number] [place], [place] PATIENT NAME: ANASTACIO GOMEZ ADMIT DATE: 09/09/20 ACCOUNT NO: [id number] ROOM NO: AGE: 80 REPORT TYPE: ELECTROCARDIOGRAM SEX: M : 41 ADMITTING PHYSICIAN: ATTENDING PHYSICIAN:Bruce Wen DO Order: [id number] Test Reason : Test Date/Time Stamp: Sat Sep 09 2020 22:33:17 Blood Pressure : / mmHG Vent. Rate : 071 BPM Atrial Rate : 071 BPM P-R Int : 200 ms QRS Dur : 100 ms QT Int : 396 ms P-R-T Axes : 051 015 072 degree s QTc Int : 430 ms Normal sinus rhythm Normal ECG No previous ECGs available Confirmed by REJI WEN DO ([id number]), newspaper managing editor ANITA DAWSON ([id number]) on 10/02/2020 11:47:01 AM Referred By: Self Referred Confirmed by:BRUCE WEN DO Electronically Signed by Bruce Wen DO o n 10/02/20 at 1141 PATIENT NAME: ANASTACIO GOMEZ [id number]
[2022-08-14] MEDS ORDERED: KETOROLAC 30 MG/ML INJ ONE (23:58)
[2022-08-15 00:49] LABS: Absolute Lymphocytes (CBC) 1.5 K/uL (0.7-4.9); Hematocrit 33.5 % (39.6-49.0); Lymphocytes % 32.3 % (15.3-44.8); MCV 92.3 fL (80-100); MPV 8.3 fL (7.6-11.3); RBC Red Blood Cell Count 3.63 M/uL (4.33-5.43)
[2022-08-15 01:00] LABS: ALT/SGPT 30 U/L (16-61); AST/SGOT 13 U/L (15-37); Albumin 3.3 g/dL (3.4-5.0); Alkaline Phosphatase 80 U/L (45-117); BUN Blood Urea Nitrogen 20 mg/dL (7-18); Bicarbonate 31 mEq/L (21-32); Bilirubin Total 0.3 mg/dL (0.2-1.0); Glomerular Filtration Rate 77 ml/min (=/>90); Glucose Level 224 mg/dL (74-106); Potassium 3.5 mEq/L (3.5-5.1); Protein, Total 6.4 g/dL (6.4-8.2); Sodium Level 140 mEq/L (136-145)
[2022-08-15 01:12] LABS: C-Reactive Protein < 2.90 mg/L (<3.00)
--- NOTE | 2022-08-15 02:10 | ER ---
Nurse's Notes [facility] Name: Herb Greco Jr Age: 82 yrs Sex: Male : 1940 Arrival Date: 08/14/2022 Time: 22:49 Bed 6 Private MD: Diagnosis: Headache Presentation: 08/14 23:31 Chief complaint: Spouse and/or significant other states: He has had a headache for kl about three days now on the right side. Coronavirus screen: Vaccine status: Patient reports receiving the 2nd dose of the covid vaccine. Ebola Screen: No symptoms or risks identified at this time. Initial Sepsis Screen: Does the patient meet any 2 criteria? No. Patient's initial sepsis screen is negative. Does the patient have a suspected source of infection? No. Patient's initial sepsis screen is negative. Risk Assessment: Do you want to hurt yourself or someone else? Patient reports no desire to harm self or others. Onset of symptoms was August 14, 2022. 23:31 Method Of Arrival: Ambulatory kl 23:31 Acuity: LIZZ 3 kl Triage Assessment: 23:33 Headache History: Denies prior headaches. General: Appears uncomfortable, Behavior is kl calm, cooperative. Pain: Pain Pain began gradually, Also complains of no other associated symptoms. Neuro: Level of Consciousness is awake, alert, obeys commands. Historical: - PMHx: 23:33 Alzheimers; Diabetes - NIDDM; Hypertension; kl - Immunization history:: Adult Immunizations up to date. - Social history:: Smoking status: Patient/guardian denies using tobacco, but has a distant history of tobacco abuse. Screenin/25 02:18 [facility] ED Fall Risk Assessment (Adult) History of falling in the last 3 months, kl including since admission No falls in past 3 months (0 pts) Confusion or Disorientation Yes (5 pts) Intoxicated or Sedated No (0 pts) Impaired Gait Yes (1 pt) Mobility Assist Device Used No (0 pt) Altered Elimination No (0 pt) Score/Fall Risk Level 3 or more points = High Risk Oriented to surroundings, Maintained a safe environment, Educated pt \T\ family on fall prevention, incl call for assistance when getting out of bed, Apply high fall risk patient identification: yellow non skid footwear/ fall signage. 02:19 Abuse screen: Denies threats or abuse. Nutritional screening: No deficits noted. kl Tuberculosis screening: No symptoms or risk factors identified. Assessment: 00:00 Reassessment: No changes from previously documented assessment. Patient and/or family vc1 updated on plan of care and expected duration. Pain level reassessed. Patient is alert, oriented x 3, equal unlabored respirations, skin warm/dry/pink. Vital Signs: 08/14 23:31 BP 190 / 81; Pulse 54; Resp 19; Temp 97.8; Pulse Ox 99% on R/A; Weight 86.18 kg; kl 08/15 00:00 BP 156 / 83; Pulse 52; Resp 19; Temp 97; vc1 01:30 BP 188 / 75; Pulse 82; kl 02:18 BP 158 / 77; Pulse 82; Resp 18; Pulse Ox 99% on R/A; kl ED Course: 08/14 22:52 Patient arrived in ED. ja2 23:17 Deshaun Bess MD is Attending Physician. sp3 23:31 Carlita Maynard RN is Primary Nurse. vc1 23:33 Triage completed. kl 23:33 Arm band placed on right wrist. kl 23:52 Inserted saline lock: 20 gauge in right forearm, using aseptic technique. Blood kl collected. 23:53 CBC with Diff Sent. kl 23:53 CMP Sent. kl 08/15 00:44 CBC with Diff Sent. kl 00:44 CMP Sent. kl 00:49 CT Head Brain wo Cont In Process Unspecified. EDMS 02:19 Patient has correct armband on for positive identification. kl 02:19 No provider procedures requiring assistance completed. IV discontinued, intact, kl bleeding controlled, No redness/swelling at site. Pressure dressing applied. Administered Medications: 08/14 23:52 Drug: Ketorolac IVP 15 mg Route: IVP; Site: right forearm; kl 08/15 00:53 Follow up: Response: No adverse reaction; Pain is decreased kl Medication: 02:19 VIS not applicable for this client. kl Outcome: 02:09 Discharge ordered by . sp3 02:19 Discharged to home ambulatory, with family. kl 02:19 Condition: improved 02:19 Discharge instructions given to patient, Instructed on discharge instructions, follow up and referral plans. Demonstrated understanding of instructions, follow-up care. 02:19 Patient left the ED. kl Signatures: Dispatcher [employer] Ana Monreal, RN RN Deshaun Romo MD MD sp3 Eliz Lopez Vanessa, RN RN vc1
--- NOTE | 2022-08-15 02:10 | EDPHYS ---
Physician Documentation [facility] Name: Herb Greco Jr Age: 82 yrs Sex: Male : 1940 Arrival Date: 08/14/2022 Time: 22:49 Bed 6 Private MD: ED Physician Deshaun Bess HPI: 08/15 00:12 This 82 yrs old Male presents to ER via Ambulatory with complaints of Headache.sp3 00:12 82-year-old male with history of Alzheimer's, diabetes, hypertension that presents with sp3 chief complaint right-sided headache for 3 days. Patient is a poor historian due to his all-time personal history as per his . Patient saw ophthalmology 2 days ago for routine follow-up for diabetes and high intraocular pressures in the past and they did not recommend any intervention. Patient denies any fever, URI symptoms, neck pain, chest pain, shortness breath, back pain, abdominal pain, nausea, vomiting, diarrhea, focal neurological deficit, syncope, near syncope, rash, travel history, known sick contacts, any other signs or symptoms on ROS at this time. Pain is described as "never had anything like this in my life" and sharp in in short bursts. Symptoms are now fully resolved. No prior history of cluster headaches reported per his .. Historical: - PMHx: 08/14 23:33 Alzheimers; Diabetes - NIDDM; Hypertension; kl - Immunization history:: Adult Immunizations up to date. - Social history:: Smoking status: Patient/guardian denies using tobacco, but has a distant history of tobacco abuse. ROS: 08/15 00:14 Constitutional: Negative for fever, chills, and weight loss, Eyes: Negative for injury, sp3 pain, redness, and discharge, ENT: Negative for injury, pain, and discharge, Neck: Negative for injury, pain, and swelling, Cardiovascular: Negative for chest pain, palpitations, and edema, Respiratory: Negative for shortness of breath, cough, wheezing, and pleuritic chest pain, Abdomen/GI: Negative for abdominal pain, nausea, vomiting, diarrhea, and constipation, Back: Negative for injury and pain, MS/Extremity: Negative for injury and deformity, Skin: Negative for injury, rash, and discoloration, Psych: Negative for depression, anxiety, suicide ideation, homicidal ideation, and hallucinations, Allergy/Immunology: Negative for hives, rash, and allergies, Endocrine: Negative for neck swelling, polydipsia, polyuria, polyphagia, and marked weight changes. All other systems are negative. Exam: 00:15 Constitutional: This is a well developed, well nourished patient who is awake, alert, sp3 and in no acute distress. Head/Face: Normocephalic, atraumatic. Eyes: Pupils equal round and reactive to light, extra-ocular motions intact. Lids and lashes normal. Conjunctiva and sclera are non-icteric and not injected. Cornea within normal limits. Periorbital areas with no swelling, redness, or edema. ENT: Nares patent. No nasal discharge, no septal abnormalities noted. External auditory canals are clear. Oropharynx with no redness, swelling, or masses, exudates, or evidence of obstruction, uvula midline. Mucous membranes moist. Neck: Trachea midline, no thyromegaly or masses palpated, and no cervical lymphadenopathy. Supple, full range of motion without nuchal rigidity, or vertebral point tenderness. No Meningismus. Chest/axilla: Normal chest wall appearance and motion. Nontender with no deformity. No lesions are appreciated. Cardiovascular: Regular rate and rhythm with a normal S1 and S2. No gallops, murmurs, or rubs. Normal PMI, no JVD. No pulse deficits. Respiratory: Lungs have equal breath sounds bilaterally, clear to auscultation and percussion. No rales, rhonchi or wheezes noted. No increased work of breathing, no retractions or nasal flaring. Abdomen/GI: Soft, non-tender, with normal bowel sounds. No distension or tympany. No guarding or rebound. No evidence of tenderness throughout. Back: No spinal tenderness. No costovertebral tenderness. Full range of motion. Skin: Warm, dry with normal turgor. Normal color with no rashes, no lesions, and no evidence of cellulitis. MS/ Extremity: Pulses equal, no cyanosis. Neurovascular intact. Full, normal range of motion. Neuro: Awake and alert, GCS 15, oriented to person, place, time, and situation. Cranial nerves II-XII grossly intact. Motor strength 5/5 in all extremities. Sensory grossly intact. Cerebellar exam normal. Normal gait. Psych: Awake, alert, with orientation to person, place and time. Behavior, mood, and affect are within normal limits. Vital Signs: 08/14 23:31 BP 190 / 81; Pulse 54; Resp 19; Temp 97.8; Pulse Ox 99% on R/A; Weight 86.18 kg; kl 08/15 00:00 BP 156 / 83; Pulse 52; Resp 19; Temp 97; vc1 01:30 BP 188 / 75; Pulse 82; kl 02:18 BP 158 / 77; Pulse 82; Resp 18; Pulse Ox 99% on R/A; kl MDM: 08/14 23:40 Patient medically screened. sp3 08/15 00:15 Data reviewed: vital signs, nurses notes, old medical records, lab test result(s), sp3 radiologic studies. ED course: 82-year-old male with now resolved new onset headache. Consider cluster headache versus tension headache versus migraine versus temporal arteritis. CT scan pending and laboratory values pending including CRP. Intraocular pressures were measured 2 days ago and were normal. This was after his headache had already started. If work-up is negative, will discharge patient home with PCP follow-up.. 02:08 ED course: CT scan negative and laboratory values are normal including CRP. Patient sp3 resting comfortably no acute distress. We will safely discharge patient home at this time.. 08/14 23:39 Order name: CBC with Diff; Complete Time: 02:02 sp3 08/14 23:39 Order name: CMP; Complete Time: 02:02 sp3 08/14 23:39 Order name: CRP; Complete Time: 02:02 sp3 08/14 23:39 Order name: CT Head Brain wo Cont sp3 08/14 23:39 Order name: IV Saline Lock; Complete Time: 23:53 sp3 08/14 23:39 Order name: Labs collected and sent; Complete Time: 23:53 sp3 Administered Medications: 08/14 23:52 Drug: Ketorolac IVP 15 mg Route: IVP; Site: right forearm; 08/15 00:53 Follow up: Response: No adverse reaction; Pain is decreased kl Disposition Summary: 08/15/22 02:09 Discharge Ordered Location: Home sp3 Condition: Stable sp3 Diagnosis - Headache sp3 Followup: sp3 - With: Private Physician - When: Upon discharge from the Emergency Department - Reason: Continuance of care Discharge Instructions: - Discharge Summary Sheet sp3 - General Headache Without Cause sp3 Forms: - Medication Reconciliation Form sp3 - Thank You Letter sp3 - Antibiotic Education sp3 - Prescription Opioid Use sp3 Signatures: Dispatcher [employer] Ana Monreal, Deshaun Ramirez RN, MD MD sp3
[2022-08-15 02:52] VITALS: O2SAT 99
[2022-08-15 02:53] VITALS: TEMP 97
[2022-08-15 02:56] VITALS: BP 158/77
--- NOTE | 2022-08-15 22:16 | RAD REPORT ---
EXAM DESCRIPTION: CT - Head Brain Wo Cont - 08/15/2022 7:03 am CLINICAL HISTORY: Headache. TECHNIQUE: Noncontrast CT through the head was performed. Axial, coronal, and sagittal reconstructio ns were created and sent to PACS. This exam was performed according to our departmental dose-optimiza tion program which includes use of Automated Exposure Control, adjustment of the mA and/or kV accordi ng to patient size and/or use of iterative reconstruction technique. COMPARISON: None. FINDINGS: There is diffuse atrophy throughout the brain parenchyma. Mild periventricular white matte r changes. Mild ex vacuo dilatation of the ventricular system. There is no intra-axial or extra-axial bleed. There is no mass or mass effect. Mucosal retention cyst in the inferior right maxillary sinus. The remaining visualized paranasal sinu ses and mastoid air cells are patent. No acute fracture is identified. IMPRESSION: No acute intracranial abnormality identified. Chronic age-related and microvascular isch emic changes. Electronically signed by: Nessa Blue MD 08/15/2022 12:59 AM CDT Due to temporary technical issues with the PACS/Fluency reporting system, reports are being signed by the in house radiologists without review as a courtesy to insure prompt reporting. The interpreting radiologist is fully responsible for the content of the report.
== END 2022-08-15 02:19 | disposition home or self-care (01) ==
LOC: ER 22:49
DX: R51.9 Headache, unspecified (principal); E11.9 Type 2 diabetes mellitus without complications; I10 Essential (primary) hypertension; G30.9 Alzheimer's disease, unspecified; F02.80 Dementia in other diseases classified elsewhere, unspecified severity, without behavioral disturbance, psychotic disturbance, mood disturbance, and anxiety
CPT/HCPCS: 36415; 70450; 80053; 85025; 86140; 96374; 99284

== ENCOUNTER 2023-04-22 20:27 | Observation (INO) | payer OTHER ==
--- NOTE | 2023-04-22 21:17 | RAD REPORT ---
EXAM DESCRIPTION: RAD - Chest Single View - 04/22/2023 9:02 pm CLINICAL HISTORY: CHEST PAIN Chest pain. COMPARISON: Abdomen 1 View (KUB) dated 11/30/2022; Chest Pa And Lat (2 Views) dated 11/30/2022; Chest Pa And Lat (2 Views) dated 02/28/2022; Chest Pa And Lat (2 Views) dated 02/01/2022 FINDINGS: Portable technique limits examination quality. The lungs are underinflated results in vascular crowding. Mild linear atelectasis seen left lung base . . The heart is upper limit of normal in size. No displaced fractures.Sternotomy wires. IMPRESSION: No acute intrathoracic process suspected.
--- NOTE | 2023-04-22 21:37 | RAD REPORT ---
EXAM DESCRIPTION: CT - Chest Abd Pelvis Wo Con - 04/22/2023 9:24 pm CLINICAL HISTORY: Chest and abdomen pain. CHEST PAIN COMPARISON: THORAX W CONTRAST dated 01/15/2011 TECHNIQUE: A limited noncontrast study was performed. All CT scans are performed using dose optimization technique as appropriate and may include automated exposure control or mA/KV adjustment according to patient size. FINDINGS: Mild interstitial pulmonary edema.This appears most significant in the lung bases.No pleur al or pericardial effusion.No intrathoracic adenopathy. The liver, spleen, pancreas, and kidneys are within normal limits. Low-density adenomas are suspected both adrenal glands, unchanged since remote examinations. No bowel obstruction, free air, free fluid or abscess. Normal appendix. Sigmoid diverticulosis coli i s present with significant in stool retained throughout the colon. 17 mm right inguinal lymph node is present, probably reactive. Small bilateral fat containing inguinal hernia, greater on the right. Chronic bilateral spondylolysis with anterolisthesis, grade 1, L5-S1. IMPRESSION: Mild CHF is possible. Sigmoid diverticulosis coli is present without diverticulitis. Moderate stool is present throughout t he colon.
[2023-04-22 21:51] LABS: Absolute Lymphocytes (CBC) 1.4 K/uL (0.7-4.9); Hematocrit 37.6 % (39.6-49.0); Lymphocytes % 26.4 % (15.3-44.8); MCV 94.5 fL (80-100); MPV 8.4 fL (7.6-11.3); Platelets 228 thou/uL (152-406); RBC Red Blood Cell Count 3.98 M/uL (4.33-5.43)
[2023-04-22 21:52] LABS: Protime INR 1.13
[2023-04-22 22:09] LABS: Albumin 3.6 g/dL (3.4-5.0); Bilirubin Direct 0.1 mg/dL (0-0.2); Bilirubin Indirect, Calculated 0.3 mg/dL (0.2-0.8); Bilirubin Total 0.4 mg/dL (0.2-1.0); Potassium 3.3 mEq/L (3.5-5.1); Protein, Total 6.7 g/dL (6.4-8.2); Troponin High Sensitivity 7.4 pg/mL (<58.9)
[2023-04-22] MEDS ORDERED: cloNIDine HCL 0.1 MG TAB ONE (23:10)
[2023-04-23] MEDS ORDERED: DIAZEPAM 5 MG TABLET ONE (00:35)
[2023-04-23] MEDS ORDERED: ACETAMINOPHEN 325 MG TABLET PO PRN (00:38)
[2023-04-23] MEDS ORDERED: ONDANSETRON 4 MG/2 ML VIAL IV PRN (00:38)
--- NOTE | 2023-04-23 00:40 | ER ---
Nurse's Notes [facility] Name: Herb Greco Jr Age: 82 yrs Sex: Male : 1940 Arrival Date: 04/22/2023 Time: 20:27 Bed 17 Private MD: Diagnosis: Angina pectoris, unspecified Presentation: 04/22 20:44 Chief complaint: Patient states: Pt c/o sudden onset of non-radiating, non-reproducible tl4 chest pain at approx noon today that is now resolved. Pt denies any associated symptoms ie nausea, diaphoresis, dizziness, SOB. Pt has CP frequently. Coronavirus screen: At this time, the client does not indicate any symptoms associated with coronavirus-19. Ebola Screen: No symptoms or risks identified at this time. Initial Sepsis Screen: Does the patient meet any 2 criteria? No. Patient's initial sepsis screen is negative. Does the patient have a suspected source of infection? No. Patient's initial sepsis screen is negative. Risk Assessment: Do you want to hurt yourself or someone else? Patient reports no desire to harm self or others. Onset of symptoms was April 22, 2023 at 12:00. Onset of symptoms was April 22, 2023 at 12:00. 20:44 Method Of Arrival: Ambulatory tl4 20:44 Acuity: LIZZ 3 tl4 23:58 Acuity: LIZZ 2 cm10 Triage Assessment: 20:47 General: Appears in no apparent distress. Behavior is calm, cooperative. Pain: tl4 Complains of pain in chest. EENT: No deficits noted. No signs and/or symptoms were reported regarding the EENT system. Neuro: No deficits noted. Cardiovascular: Denies chest pain, diaphoresis, fatigue, lightheadedness, nausea, palpitations. Respiratory: No deficits noted. Denies cough, shortness of breath. GI: No deficits noted. No signs and/or symptoms were reported involving the gastrointestinal system. : No deficits noted. No signs and/or symptoms were reported regarding the genitourinary system. Derm: No deficits noted. No signs and/or symptoms reported regarding the dermatologic system. Historical: - Allergies: 20:46 No Known Allergies; tl4 - PMHx: 20:46 Alzheimers; Diabetes - NIDDM; Hypertension; tl4 - Immunization history:: Adult Immunizations unknown. - Social history:: Smoking status: Patient/guardian denies using tobacco, the patient reports quitting approximately 55 years ago. - Family history:: not pertinent. Screenin:52 [facility] ED Fall Risk Assessment (Adult) History of falling in the last 3 months, cm10 including since admission No falls in past 3 months (0 pts) Confusion or Disorientation Yes (5 pts) Intoxicated or Sedated No (0 pts) Impaired Gait No (0 pts) Mobility Assist Device Used No (0 pt) Altered Elimination No (0 pt) Score/Fall Risk Level 3 or more points = High Risk Oriented to surroundings, Maintained a safe environment, Used ambulatory aids as needed (educated on \\T\\ assisted with). Abuse screen: Denies threats or abuse. Denies injuries from another. Nutritional screening: No deficits noted. Tuberculosis screening: No symptoms or risk factors identified. Assessment: 21:51 General: Appears in no apparent distress. comfortable, Behavior is calm, cooperative. cm10 Pain: Denies pain. Neuro: No deficits noted. Level of Consciousness is awake, alert, Oriented to person, place, time. Cardiovascular: No deficits noted. Patient's skin is warm and dry. Rhythm is sinus bradycardia Chest pain Has resolved at this time.. Respiratory: No deficits noted. Airway is patent Respiratory effort is even, unlabored, Respiratory pattern is regular, symmetrical, Breath sounds are clear bilaterally. GI: No deficits noted. No signs and/or symptoms were reported involving the gastrointestinal system. : No deficits noted. No signs and/or symptoms were reported regarding the genitourinary system. EENT: No deficits noted. No signs and/or symptoms were reported regarding the EENT system. Derm: No deficits noted. No signs and/or symptoms reported regarding the dermatologic system. Skin is intact, Skin is pink, warm \\T\\ dry. Musculoskeletal: No deficits noted. Range of motion: intact in all extremities, Swelling present in right leg and left leg. 21:53 Pain: Pain does not radiate. Pain began Pain is intermittent for "a while now". cm10 22:50 Reassessment: Patient appears in no apparent distress at this time. Patient and/or cm10 family updated on plan of care and expected duration. Pain level reassessed. Patient is alert, oriented x 3, equal unlabored respirations, skin warm/dry/pink. 23:35 Reassessment: Patient appears in no apparent distress at this time. No changes from cm10 previously documented assessment. Patient and/or family updated on plan of care and expected duration. Pain level reassessed. Patient is alert, oriented x 3, equal unlabored respirations, skin warm/dry/pink. 04/23 00:30 Reassessment: Pt noted to be restless not wanting to stay in bed. Provider made aware, [facility] orders received for medication. Pt medicated per MAY. Pt and patient's made aware that pt is NPO. 02:00 Reassessment: Patient appears in no apparent distress at this time. No changes from cm10 previously documented assessment. Patient and/or family updated on plan of care and expected duration. Pain level reassessed. Pt noted to be sleeping, respirations even and unlabored. Pt remains on cardiac monitoring. Vital Signs: 04/22 20:44 BP 148 / 69; Pulse 56; Resp 16; Temp 98.2; Pulse Ox 97% on R/A; Weight 83.8 kg (M); tl4 Pain 0/10; 21:33 BP 199 / 77; Pulse 55; Resp 16; Pulse Ox 99% on R/A; cm10 22:00 BP 192 / 78; Pulse 53; Resp 13; Pulse Ox 100% on R/A; cm10 22:30 BP 189 / 78; Pulse 58; Resp 16; Pulse Ox 100% on R/A; cm10 23:00 BP 178 / 111; Pulse 65; Resp 18; Pulse Ox 100% on R/A; cm10 23:09 BP 205 / 77; Pulse 51; Resp 16; Pulse Ox 100% on R/A; cm10 23:30 BP 188 / 91; Pulse 61; Resp 16; Pulse Ox 99% on R/A; cm10 04/23 00:00 BP 159 / 75; Pulse 56; Resp 16; Pulse Ox 100% ; cm10 01:00 BP 200 / 66; Pulse 47; Resp 16; Pulse Ox 100% on R/A; cm10 02:00 BP 161 / 73; Pulse 42; Resp 13; cm10 02:30 BP 169 / 67; Pulse 44; Resp 12; cm10 04/22 20:44 Pain Scale: Adult tl4 [place] Coma Score: 00:17 Eye Response: spontaneous(4). Motor Response: obeys commands(6). Verbal Response: sp4 oriented(5). Total: 15. NIH Stroke Scale Scores: 00:17 NIHSS Score: 0 sp4 ED Course: 04/22 20:28 Patient arrived in ED. jj6 20:32 Luis Manuel Manuel MD is Attending Physician. sp4 20:46 Triage completed. tl4 20:47 Arm band placed on right wrist. tl4 21:04 XRAY Chest (1 view) In Process Unspecified. EDMS 21:26 CT Chest Abdomen Pelvis W/O Contrast In Process Unspecified. EDMS 21:42 Inserted saline lock: 20 gauge in right forearm, using aseptic technique. Blood km8 collected. 21:43 Basic Metabolic Panel Sent. km8 21:43 CBC with Diff Sent. km8 21:43 LFT's Sent. km8 21:43 Magnesium Sent. km8 21:43 NT PRO-BNP Sent. km8 21:43 PT-INR Sent. km8 21:43 Troponin HS Sent. km8 21:43 Lipase Sent. km8 21:50 Marianela Workman, CHARLETTE is Primary Nurse. cm10 21:52 Patient has correct armband on for positive identification. Placed in gown. Bed in low cm10 position. Call light in reach. Side rails up X2. Adult w/ patient. Provided Education on: ER process and procedures. . Client placed on continuous cardiac and pulse oximetry monitoring. NIBP monitoring applied. 21:53 Patient maintains SpO2 saturation greater than 95% on room air. cm10 22:53 ED physician to see patient. cm10 23:21 Troponin High Sensitivity Sent. cm10 04/23 00:38 Jean Payne MD is Hospitalizing Provider. sp4 02:39 No provider procedures requiring assistance completed. Patient admitted, IV remains in cm10 place. 02:50 Report given to CHARLETTE Campos. cm10 Administered Medications: 04/22 23:19 Drug: cloNIDine PO 0.2 mg PO once {Note: BP 205/77 Pulse: 51.} Route: PO; cm10 04/23 00:36 Follow up: Response: No adverse reaction; Blood pressure is lowered cm10 00:47 Drug: Diazepam PO 5 mg PO once Route: PO; cm10 02:40 Follow up: Response: No adverse reaction cm10 Medication: 04/22 21:52 VIS not applicable for this client. cm10 Outcome: 04/23 00:39 Decision to Hospitalize by Provider. sp4 02:39 Admitted to ER Hold. Please see [facility] for further documentation. cm10 02:39 Condition: stable 02:39 Instructed on the need for admit, 15:39 Patient left the ED. mb9 NIH Stroke Scale - NIH Stroke Score Date: 04/23/2023 Time: 00:17 Total Score = 0 10. Dysarthria (speech clarity - read or repeat words) - 0(Normal) 11. Extinction and Inattention (visual/tactile/auditory/spatial/personal) - 0(No abnormality) 1a. Level of Consciousness (LOC) - 0(Alert) 1b. Level of Consciousness (LOC) (Month \\T\\ Age) - 0(Both) 1c. LOC Commands (Open \\T\\ Closes Eyes/Parachute Mender) - 0(Both) 2. Best Gaze (Lateral Gaze Paresis) - 0(Normal) 3. Visual Field Loss - 0(No visual loss) 4. Facial Palsy - 0(Normal) 5a. Left Arm: Motor (10-second hold) - 0(No drift) 5b. Right Arm: Motor (10-second hold) - 0(No drift) 6a. Left Leg: Motor (5-second hold - always test supine) - 0(No drift) 6b. Right Leg: Motor (5-second hold - always test supine) - 0(No drift) 7. Limb Ataxia (finger/nose \\T\\ heel/burns - test with eyes open) - 0(Absent) 8. Sensory Loss (pinprick arms/legs/face) - 0(Normal) 9. Best Language: Aphasia (description/naming/reading) - 0(No aphasia) Initials: sp4 Signatures: Dispatcher [employer] EDMS Heather Rees Mary Beth RN RN mb9 Luis Manuel Manuel MD MD sp4 Marianela Workman RN RN cm10 Lacie Francois RN RN km8 Franklin Simmons 4
--- NOTE | 2023-04-23 00:40 | EDPHYS ---
Physician Documentation [facility] Name: Herb Greco Jr Age: 82 yrs Sex: Male : 1940 Arrival Date: 04/22/2023 Time: 20:27 Bed 17 Private MD: ED Physician Luis Manuel Manuel HPI: 04/22 20:32 This 82 yrs old Male presents to ER via Unassigned with complaints of Chest sp4 Pain. 04/23 00:14 Is a very pleasant demented 82-year-old male brought in by his for complaint of sp4 episode of chest pain described as sharp left-sided chest pain . Some abdominal discomfort at home. Denied vomiting or fever. Historical: - Allergies: 04/22 20:46 No Known Allergies; tl4 - PMHx: 20:46 Alzheimers; Diabetes - NIDDM; Hypertension; tl4 - Immunization history:: Adult Immunizations unknown. - Social history:: Smoking status: Patient/guardian denies using tobacco, the patient reports quitting approximately 55 years ago. - Family history:: not pertinent. ROS: 04/23 00:14 Constitutional: Negative for fever, chills, and weight loss, positive for intermittent sp4 chest pains and abdominal ache for the past several days. Eyes: Negative for injury, pain, redness, and discharge, All other systems are negative, Unable to obtain ROS due to ROS is limited secondary to dementia.. , Exam: 00:17 Constitutional: This is a well developed, well nourished patient who is awake, alert, sp4 and in no acute distress. Head/Face: Normocephalic, atraumatic. Eyes: Pupils equal round and reactive to light, extra-ocular motions intact. Lids and lashes normal. Conjunctiva and sclera are not injected. Cornea within normal limits. Periorbital areas with no swelling, redness, or edema. ENT: Nares patent. No nasal discharge, no septal abnormalities noted. Tympanic membranes are normal and external auditory canals are clear. Oropharynx with no redness, swelling, or masses, exudates, or evidence of obstruction, uvula midline. Mucous membranes moist. Neck: Trachea midline, no thyromegaly or masses palpated, and no cervical lymphadenopathy. Supple, full range of motion without nuchal rigidity, or vertebral point tenderness. Chest/axilla: Normal chest wall appearance and motion. Nontender with no deformity. No lesions are appreciated. Cardiovascular: Regular rate and rhythm with a normal S1 and S2. No gallops, murmurs, or rubs. Normal PMI, no JVD. No pulse deficits. Respiratory: Lungs have equal breath sounds bilaterally, clear to auscultation and percussion. No rales, rhonchi or wheezes noted. No increased work of breathing, no retractions or nasal flaring. Abdomen/GI: Soft, non-tender, with normal bowel sounds. No distension or tympany. No guarding or rebound. No evidence of tenderness throughout. Back: No spinal tenderness. No costovertebral tenderness. Skin: Warm, dry with normal turgor. Normal color with no rashes, no lesions, and no evidence of cellulitis. MS/ Extremity: Pulses equal, no cyanosis. Neurovascular intact. Full, normal range of motion. Neuro: Awake and alert, GCS 15, oriented to person, place, Cranial nerves II-XII grossly intact. Motor strength 5/5 in all extremities. Sensory grossly intact. Exam limited secondary to dementia Psych: Awake, alert, with orientation to person, place -exam limited secondary to dementia 00:17 ECG was reviewed by the Attending Physician. Positive EKG at 2146 sp4 Vital Signs: 04/22 20:44 BP 148 / 69; Pulse 56; Resp 16; Temp 98.2; Pulse Ox 97% on R/A; Weight 83.8 kg (M); tl4 Pain 0/10; 21:33 BP 199 / 77; Pulse 55; Resp 16; Pulse Ox 99% on R/A; cm10 22:00 BP 192 / 78; Pulse 53; Resp 13; Pulse Ox 100% on R/A; cm10 22:30 BP 189 / 78; Pulse 58; Resp 16; Pulse Ox 100% on R/A; cm10 23:00 BP 178 / 111; Pulse 65; Resp 18; Pulse Ox 100% on R/A; cm10 23:09 BP 205 / 77; Pulse 51; Resp 16; Pulse Ox 100% on R/A; cm10 23:30 BP 188 / 91; Pulse 61; Resp 16; Pulse Ox 99% on R/A; cm10 04/23 00:00 BP 159 / 75; Pulse 56; Resp 16; Pulse Ox 100% ; cm10 01:00 BP 200 / 66; Pulse 47; Resp 16; Pulse Ox 100% on R/A; cm10 02:00 BP 161 / 73; Pulse 42; Resp 13; cm10 02:30 BP 169 / 67; Pulse 44; Resp 12; cm10 04/22 20:44 Pain Scale: Adult tl4 NIH Stroke Scale Scores: 00:17 NIHSS Score: 0 sp4 [place] Coma Score: 00:17 Eye Response: spontaneous(4). Motor Response: obeys commands(6). Verbal Response: sp4 oriented(5). Total: 15. MDM: 04/22 20:33 Patient medically screened. sp4 04/23 00:22 Differential diagnosis: acute pericarditis, anxiety, coronary artery disease chest wall sp4 pain, congestive heart failure costochondritis. HEART Score: History: Slightly Suspicious (0), ECG: Normal (0), Age: > or = 65 years (2), Risk Factors: > or = 3 Risk factors for atherosclerotic disease (2), Troponin: < or = 1 x Normal Limit (0), Total Score = 4. Data reviewed: vital signs, nurses notes, old medical records, lab test result(s), EKG, radiologic studies, plain films. ED course: Patient repeat troponin is negative. Patient stable for discharge home. . 00:37 ED course: CT - EXAM DESCRIPTION: CT - Chest Abd Pelvis Wo Con - 04/22/2023 9:24 pm sp4 CLINICAL HISTORY: Chest and abdomen pain. CHEST PAIN COMPARISON: THORAX W CONTRAST dated 01/15/2011 TECHNIQUE: A limited noncontrast study was performed. All CT scans are performed using dose optimization technique as appropriate and may include automated exposure control or mA/KV adjustment according to patient size. FINDINGS: Mild interstitial pulmonary edema.This appears most significant in the lung bases.No pleural or pericardial effusion.No intrathoracic adenopathy. The liver, spleen, pancreas, and kidneys are within normal limits. Low-density adenomas are suspected both adrenal glands, unchanged since remote examinations. No bowel obstruction, free air, free fluid or abscess. Normal appendix. Sigmoid diverticulosis coli is present with significant in stool retained throughout the colon. 17 mm right inguinal lymph node is present, probably reactive. Small bilateral fat containing inguinal hernia, greater on the right. Chronic bilateral spondylolysis with anterolisthesis, grade 1, L5-S1. IMPRESSION: Mild CHF is possible. Sigmoid diverticulosis coli is present without diverticulitis. Moderate stool is present throughout the colon. . ED course: There is no sign of acute coronary syndrome, however, secondary to multiple risk factors patient warrants admission for Cardiologic evaluation. . 04/22 20:32 Order name: Basic Metabolic Panel; Complete Time: 22:52 [facility] 04/22 20:32 Order name: CBC with Diff; Complete Time: 22:52 [facility] 04/22 20:32 Order name: LFT's; Complete Time: 22:52 [facility] 04/22 20:32 Order name: Magnesium; Complete Time: 22:52 [facility] 04/22 20:32 Order name: NT PRO-BNP; Complete Time: 22:52 [facility] 04/22 20:32 Order name: PT-INR; Complete Time: 22:52 [facility] 04/22 20:32 Order name: Troponin HS; Complete Time: 22:52 [facility] 04/22 20:49 Order name: Lipase; Complete Time: 22:52 [facility] 04/22 22:52 Order name: Troponin High Sensitivity; Complete Time: 00:03 [facility] 04/23 00:44 Order name: Urinalysis w/ reflexes EDTN 04/23 00:44 Order name: CBC with Automated Diff EDTN 04/23 00:44 Order name: CBC with Automated Diff EDTN 04/23 00:44 Order name: Lipid Profile EDTN 04/23 00:44 Order name: Lipid Profile EDTN 04/23 00:44 Order name: Troponin High Sensitivity EDTN 04/23 00:44 Order name: Troponin High Sensitivity; Complete Time: 05:00 EDTN 04/23 00:44 Order name: Troponin High Sensitivity EDTN 04/23 00:44 Order name: Troponin High Sensitivity EDTN 04/23 08:59 Order name: Glucose, Ancillary Testing EDTN 04/23 11:58 Order name: Glucose, Ancillary Testing EDTN 04/22 20:32 Order name: XRAY Chest (1 view); Complete Time: 22:52 [facility] 04/22 20:49 Order name: CT Chest Abdomen Pelvis W/O Contrast; Complete Time: 22:52 [facility] 04/22 20:32 Order name: EKG; Complete Time: 20:33 [facility] 04/23 00:44 Order name: CONS Physician Consult EDTN 04/22 20:32 Order name: Cardiac monitoring; Complete Time: 21:50 sp4 04/22 20:32 Order name: EKG - Nurse/Tech; Complete Time: 21:50 sp4 04/22 20:32 Order name: IV Saline Lock; Complete Time: 21:43 sp4 04/22 20:32 Order name: Labs collected and sent; Complete Time: 21:43 sp4 04/22 20:32 Order name: O2 Per Protocol; Complete Time: :43 sp4 04/22 20:32 Order name: O2 Sat Monitoring; Complete Time: :43 sp4 EC:17 Rate is 54 beats/min. Rhythm is regular, Sinus bradycardia. QRS [place] is Normal. LA sp4 interval is prolonged. QRS interval is normal. QT interval is normal. No Q waves. T waves are Normal. Clinical impression: No evidence of ischemia. Interpreted by me. Reviewed by me. Administered Medications: 04/22 23:19 Drug: cloNIDine PO 0.2 mg PO once {Note: BP 205/77 Pulse: 51.} Route: PO; cm10 04/23 00:36 Follow up: Response: No adverse reaction; Blood pressure is lowered cm10 00:47 Drug: Diazepam PO 5 mg PO once Route: PO; cm10 02:40 Follow up: Response: No adverse reaction cm10 Disposition Summary: 04/23/23 00:39 Hospitalization Ordered Notes: Hospitalization Status: Observation sp4 Provider: Jean Payne sp4 Condition: Stable sp4 Problem: new sp4 Symptoms: have improved sp4 Bed/Room Type: Standard sp4 Location: [facility] ER HOLD(04/23/23 02:45) [facility] Room Assignment: ERHOLD-(04/23/23 02:45) vc1 Diagnosis - Angina pectoris, unspecified sp4 Forms: - Medication Reconciliation Form sp4 - SBAR form sp4 - Leadership Thank You Letter sp4 NIH Stroke Scale - NIH Stroke Score Date: 04/23/2023 Time: 00:17 Total Score = 0 10. Dysarthria (speech clarity - read or repeat words) - 0(Normal) 11. Extinction and Inattention (visual/tactile/auditory/spatial/personal) - 0(No abnormality) 1a. Level of Consciousness (LOC) - 0(Alert) 1b. Level of Consciousness (LOC) (Month \T\ Age) - 0(Both) 1c. LOC Commands (Open \T\ Closes Eyes/Dining Room Server) - 0(Both) 2. Best Gaze (Lateral Gaze Paresis) - 0(Normal) 3. Visual Field Loss - 0(No visual loss) 4. Facial Palsy - 0(Normal) 5a. Left Arm: Motor (10-second hold) - 0(No drift) 5b. Right Arm: Motor (10-second hold) - 0(No drift) 6a. Left Leg: Motor (5-second hold - always test supine) - 0(No drift) 6b. Right Leg: Motor (5-second hold - always test supine) - 0(No drift) 7. Limb Ataxia (finger/nose \T\ heel/burns - test with eyes open) - 0(Absent) 8. Sensory Loss (pinprick arms/legs/face) - 0(Normal) 9. Best Language: Aphasia (description/naming/reading) - 0(No aphasia) Initials: sp4 Signatures: Dispatcher [employer] EDMS Carlita Maynard RN RN vc1 Luis Manuel Manuel MD MD sp4 Marianela Workman RN RN cm10 LogFranklin laird tl4 Corrections: (The following items were deleted from the chart) 02:45 00:39 Telemetry/MedSurg (observation) sp4 vc1 02:45 00:39 sp4 vc1
--- NOTE | 2023-04-23 00:45 | P.HP ---
Certification for Inpatient Patient admitted to: Observation With expected LOS: <2 Midnights Practitioner: I am a practitioner with admitting privileges, knowledge of patient current condition, hospital course, and medical plan of care. Services: Services provided to patient in accordance with Admission requirements found in Title 42 Section 412.3 of the Code of Federal Regulations Patient History Date of Service: 04/23/23 Reason for admission: Chest pain. History of Present Illness: 84-year-old male patient with medical history significant for diabetes type 2, hypertension, hyperlipidemia, history of coronary artery disease who was admitted for episode of chest pain. Patient had reported chest pain on daily basis which is nonexertional. He had scheduled outpatient clinic visit with tubing tester but he began to have more chest pains with surgical gtt. In the ED troponin and EKG was negative. He was admitted for possible stress test and left heart cath as per cardiology recommendation. Allergies NKDA Allergy (Uncoded 02/01/22 13:31) Unknown No Known Allergies Allergy (Uncoded 02/01/22 13:31) Unknown Home Medications: Amlodipine [Norvasc*] 5 mg PO DAILY 08/08/13 Glimepiride [Amaryl*] 2 mg PO DAILY 08/08/13 Latanoprost [Xalatan] 1 gtt OP 30 MIN BEFORE HS 08/08/13 Metoprolol Tartrate 25 mg PO BID #60 tablet 05/16/21 Apixaban [Eliquis] 5 mg PO 02/01/22 Donepezil HCl 1 tab PO DAILY 02/01/22 Memantine HCl 2 tab PO DAILY 02/01/22 Metformin HCl [Metformin ER Gastric] 1 tab PO DAILY 02/01/22 Pioglitazone HCl 1 tab PO DAILY 02/01/22 Potassium Chloride [Micro-K] 1 tab PO DAILY 02/01/22 Simvastatin 1 tab PO DAILY 02/01/22 Tamsulosin [Flomax*] 1 tab PO DAILY 02/01/22 - Past Medical/Surgical History Diabetic: Yes -: GLUCOMA, -: NIDDM -: HTN -: [place] -: A FIB -: erectile dysfunction -: Hernia repair -: cardiac ablation x 2 -: heart stents - Social History Alcohol use: No CD- Drugs: No Caffeine use: No Review of Systems General: Unremarkable Eyes: Unremarkable ENT: Unremarkable Respiratory: Unremarkable Cardiovascular: Chest Pain Gastrointestinal: Unremarkable Genitourinary: Unremarkable Musculoskeletal: Unremarkable Neurological: Unremarkable Lymphatics: Unremarkable Physical Examination - Physical Exam General: Alert, Oriented x3 HEENT: Atraumatic Respiratory: Normal air movement Cardiovascular: Regular rate/rhythm, Normal S1 S2 Gastrointestinal: Soft and benign Musculoskeletal: No swelling Neurological: Normal speech, Normal strength at 5/5 x4 extr - Studies Laboratory Data (last 24 hrs) 04/22/23 04/22/23 04/22/23 21:40 21:40 21:40 WBC 5.30 Hgb 12.8 L Hct 37.6 L Plt Count 228 PT 12.4 INR 1.13 Sodium Potassium BUN Creatinine Glucose Magnesium Total Bilirubin AST ALT Alkaline Phosphatase Lipase 30 04/22/23 21:40 WBC Hgb Hct Plt Count PT INR Sodium 139 Potassium 3.3 L BUN 18 Creatinine 1.27 Glucose 119 H Magnesium 2.0 Total Bilirubin 0.4 AST 14 L ALT 19 Alkaline Phosphatase 80 Lipase Assessment and Plan - Plan Chest pain: Chest pain is concerning for ACS. Will continue troponin trend, obtain lipid panel and have echocardiogram done. Cardiology consult placed for management recommendation. Hypertension: We will monitor vital signs per unit protocol and continue antihypertensive medications. DM 2: We will have sliding scale insulin on board, continue long-acting insulin and carb restricted diet. Hyperlipidemia: We will continue statin therapy and obtain lipid panel. Hypokalemia: Potassium is low at 3.3. we will replete and follow levels. Prophylaxis: Lovenox for DVT prophylaxis. Code status: Full code. Disposition: We will workup chest pain and discharge him once cleared by cardiology service - Advance Directives Does patient have a Living Will: No Does patient have a Durable POA for Healthcare: No
[2023-04-23] MEDS ORDERED: GLUCAGON 1 MG/VIAL IM PRN (02:42)
[2023-04-23] MEDS ORDERED: D50W 25 GM/50 ML SYRINGE IV PRN (02:42)
[2023-04-23] MEDS ORDERED: D10W 125 ML IV PRN (02:45)
[2023-04-23 02:46] VITALS: BMI 30.7
[2023-04-23] MEDS ORDERED: HYDRALAZINE HCL 20 MG/ML VIAL IV PRN (07:23)
[2023-04-23] MEDS: INSULIN REGULAR (HUMAN) 100 UNIT/ML SQ SCH ×2 (07:30→11:30)
[2023-04-23] MEDS: POTASSIUM CL SA 10 MEQ TAB PO SCH ×2 (08:00→12:00)
[2023-04-23] MEDS ORDERED: POTASSIUM CL SA 10 MEQ TAB PO ONE ×2 (08:26→12:27)
[2023-04-23] MEDS ORDERED: ENOXAPARIN 40 MG/0.4 ML SQ SCH (09:00)
[2023-04-23 09:28] LABS: Specific Gravity 1.011 (1.005-1.030); Urine Bilirubin NEGATIVE (Negative); Urine Blood Negative (Negative); Urine Clarity Clear (Clear); Urine Color Colorless (Yellow); Urine Glucose NEGATIVE (Negative); Urine Protein NEGATIVE (Negative); Urine Urobilinogen Normal (Normal)
[2023-04-23] MEDS ORDERED: LIDOCAINE 1% 20 ML MDV ONE (15:10)
[2023-04-23] MEDS ORDERED: ATROPINE SULF 1 MG/10 ML SYR IV ONE (15:10)
[2023-04-23] MEDS ORDERED: FENTANYL CITR 100 MCG/2 ML ONE (15:10)
[2023-04-23] MEDS ORDERED: MIDAZOLAM HCL 2 MG/2 ML INJ ONE (15:10)
[2023-04-23] MEDS ORDERED: CLOPIDOGREL 75 MG TABLET ONE (15:11)
[2023-04-23] MEDS ORDERED: HEPARIN 10,000 UNIT/10 ML VIAL IV ONE (15:11)
[2023-04-23] MEDS ORDERED: TICAGRELOR 90 MG TABLET PO ONE (15:11)
[2023-04-23] MEDS ORDERED: ASPIRIN 325 MG TAB ONE (15:12)
[2023-04-23] MEDS ORDERED: HEPA 1000U/500MLS 2,000 UNIT/1,000 ML BAG IV ONE (15:19)
[2023-04-23] MEDS ORDERED: HYDRALAZINE HCL 20 MG/ML VIAL ONE (16:06)
[2023-04-23 17:23] VITALS: O2SAT 100
[2023-04-23 18:10] VITALS: BP 126/63; TEMP 97.3
--- NOTE | 2023-04-24 13:27 | EKG ---
Test Date: 2023-04-22 Test Time: 21:46:21 Ccna: CARLY MEASUREMENT RESULTS: Intervals: Rate: 54 VT: 210 QRSD: 80 QT: 456 QTc: 432 Correll: P: 59 VT: 210 QRS: 13 T: 70 INTERPRETIVE STATEMENTS: Sinus bradycardia with 1st degree AV block Otherwise normal ECG Compared to ECG 02/01/2022 13:48:23 First degree AV block now present Electronically Signed On 04-24-23 13:23:02 POT RELINER by Lauro Patino
== END 2023-04-23 21:06 | disposition home or self-care (01) ==
LOC: ER 20:27 → ERHOLD 04-23 00:38 → 2ND 04-23 16:00 → ERHOLD 04-23 16:36 → 2ND 04-23 16:38
PROVIDERS: ADMIT Internal Medicine Nephrology; ATTEND Family Medicine
DX: R07.9 Chest pain, unspecified (principal); E11.9 Type 2 diabetes mellitus without complications; I10 Essential (primary) hypertension; E78.5 Hyperlipidemia, unspecified; I25.10 Atherosclerotic heart disease of native coronary artery without angina pectoris; E87.6 Hypokalemia
CPT/HCPCS: 93005; 85025; 80048; 36415; 83735; 85610; 82947 ×3; 80076; 81003; 84484 ×5; 83690; 83880; 71250; 74176; 71045; J0360; J2001; J2250; J3010; G0378 ×3; J0461

== ENCOUNTER 2023-08-22 17:07 | Observation (INO) | payer OTHER ==
[2023-08-22] MEDS ORDERED: NA CHLORIDE 0.9% 1,000 ML ONE (17:40)
[2023-08-22] MEDS ORDERED: ASPIRIN 81 MG CHEWABLE TABLET ONE (17:40)
[2023-08-22 17:44] LABS: Absolute Basophils 0.1 K/uL (0-0.5); Absolute Eosinophils 0.2 K/uL (0-0.5); Absolute Lymphocytes (CBC) 0.9 K/uL (0.7-4.9); Absolute Monocytes 0.4 K/uL (0.1-1.3); Absolute Neutrophil 3.4 K/uL (1.8-8.0); Basophils % 1.9 % (0-1.3); Eosinophils % 4.5 % (0-4.4); Hematocrit 35.6 % (39.6-49.0); Hemoglobin 12.5 g/dL (13.6-17.9); Lymphocytes % 17.8 % (15.3-44.8); MCH 32.6 pg (27.0-35.0); MCHC 35.1 g/dL (32.0-36.0); MCV 92.8 fL (80-100); Monocytes % 8.6 % (3.3-12.3); Neutrophils % 67.2 % (41.7-73.7); Nucleated Red Blood Cells % 0.1 % (0-0); Platelets 218 thou/uL (152-406); RBC Red Blood Cell Count 3.83 M/uL (4.33-5.43)
[2023-08-22 17:48] LABS: PT Prothrombin Time 13.4 SECONDS (9.5-12.5); Protime INR 1.23
[2023-08-22 18:04] LABS: ALT/SGPT 15 U/L (16-61); AST/SGOT < 10 U/L (15-37); Albumin 3.4 g/dL (3.4-5.0); Albumin/Globulin Ratio 1.2 (1.1-1.8); Alkaline Phosphatase 87 U/L (45-117); Anion Gap 6.7 mEq/L (5.0-15.0); BUN Blood Urea Nitrogen 19 mg/dL (7-18); Bicarbonate 28 mEq/L (21-32); Bilirubin Direct < 0.2 mg/dL (0-0.2); Bilirubin Indirect, Calculated 0.2 mg/dL (0.2-0.8); Bilirubin Total 0.4 mg/dL (0.2-1.0); Globulin 2.9 g/dL (2.3-3.5); Glomerular Filtration Rate 73 ml/min (=/>90); Glucose Level 141 mg/dL (74-106); Lipase 44 U/L (13-75); Magnesium 2.1 mg/dL (1.6-2.4); NT PRO-BNP 392 pg/mL (<450); Potassium 3.7 mEq/L (3.5-5.1); Protein, Total 6.3 g/dL (6.4-8.2); Sodium Level 138 mEq/L (136-145); Troponin High Sensitivity 6.6 pg/mL (<58.9)
--- NOTE | 2023-08-22 18:29 | ER ---
Nurse's Notes [facility] Name: Herb Greco Jr Age: 83 yrs Sex: Male : 1940 Arrival Date: 08/22/2023 Time: 17:07 Bed 17 Private MD: Diagnosis: Chest pain, unspecified;Essential (primary) hypertension;Type 2 diabetes mellitus with hyperglycemia Presentation: 08/21 17:13 Chief complaint: Patient states: chest pain off and on today. Coronavirus screen: At as6 this time, the client does not indicate any symptoms associated with coronavirus-19. Ebola Screen: No symptoms or risks identified at this time. Initial Sepsis Screen: Does the patient meet any 2 criteria? No. Patient's initial sepsis screen is negative. Does the patient have a suspected source of infection? No. Patient's initial sepsis screen is negative. Risk Assessment: Do you want to hurt yourself or someone else? Patient reports no desire to harm self or others. Onset of symptoms was August 22, 2023. 17:13 Method Of Arrival: Ambulatory as6 17:13 Acuity: LIZZ 3 as6 Historical: - Allergies: 17:15 No Known Allergies; as6 - PMHx: 17:15 Alzheimers; Diabetes - NIDDM; Hypertension; as6 - PSHx: 17:15 open heart (Hypertension); Stented artery; Cholecystectomy; as6 - Immunization history:: Adult Immunizations up to date. - Infectious Disease History:: Denies. - Social history:: Smoking status: Patient denies any tobacco usage or history of. - Family history:: not pertinent. Screenin:39 [facility] ED Fall Risk Assessment (Adult) History of falling in the last 3 months, kc6 including since admission No falls in past 3 months (0 pts) Confusion or Disorientation Yes (5 pts) Intoxicated or Sedated No (0 pts) Impaired Gait No (0 pts) Mobility Assist Device Used No (0 pt) Altered Elimination No (0 pt) Score/Fall Risk Level 0 - 2 = Low Risk. Abuse screen: Denies threats or abuse. Denies injuries from another. Nutritional screening: No deficits noted. Tuberculosis screening: No symptoms or risk factors identified. Assessment: 17:45 General: Appears in no apparent distress. comfortable, well groomed, well developed, kc6 Behavior is calm, cooperative, appropriate for age. Pain: Denies pain. Pain does not radiate. Pain began 1 day ago. Neuro: Level of Consciousness is awake, alert, obeys commands, confused, Oriented to person, Appropriate for age. Cardiovascular: Denies chest pain, Heart tones S1 S2 present Capillary refill < 3 seconds Rhythm is sinus bradycardia. Respiratory: Airway is patent Trachea midline Respiratory effort is even, unlabored, Respiratory pattern is regular, symmetrical. GI: No signs and/or symptoms were reported involving the gastrointestinal system. : No signs and/or symptoms were reported regarding the genitourinary system. EENT: No signs and/or symptoms were reported regarding the EENT system. Derm: No signs and/or symptoms reported regarding the dermatologic system. Skin is intact, is healthy with good turgor, Skin is pink, warm \T\ dry. Musculoskeletal: No signs and/or symptoms reported regarding the musculoskeletal system. Circulation, motion, and sensation intact. Capillary refill < 3 seconds, Range of motion: intact in all extremities. 18:45 Reassessment: Patient appears in no apparent distress at this time. No changes from kc6 previously documented assessment. Patient and/or family updated on plan of care and expected duration. Pain level reassessed. Vital Signs: 17:13 BP 162 / 82; Pulse 57; Resp 16 S; Temp 97.7(TE); Pulse Ox 97% on R/A; Weight 85.73 kg; as6 Height 5 ft. 5 in. (R); Pain 0/10; 17:46 BP 146 / 64; Pulse 56; Resp 15 S; Pulse Ox 97% on R/A; kc6 19:01 BP 163 / 78; Pulse 50; Resp 15 S; Pulse Ox 97% on R/A; kc6 20:00 BP 189 / 76; Pulse 51; Resp 18; Pulse Ox 97% ; cp4 21:00 BP 186 / 69; Pulse 52; Resp 18; Pulse Ox 97% ; cp4 17:13 Body Mass Index 31.45 (85.73 kg, 165.1 cm) as6 17:13 Pain Scale: Adult as6 ED Course: 17:10 Patient arrived in ED. rg4 17:13 Tra Davis MD is Attending Physician. [facility] 17:15 Triage completed. as6 17:16 Arm band placed on. as6 17:21 Fabienne Childers RN is Primary Nurse. kc6 17:39 Patient has correct armband on for positive identification. Bed in low position. Call kc6 light in reach. Side rails up X 1. Adult w/ patient. Client placed on continuous cardiac and pulse oximetry monitoring. NIBP monitoring applied. cardiac monitor on. 17:39 Inserted saline lock: 20 gauge in right forearm, using aseptic technique. Blood kc6 collected. 17:46 XRAY Chest (1 view) In Process Unspecified. EDMS 18:28 Adryan Richardson MD is Hospitalizing Provider. [facility] 19:00 Report given to Janice Coelho RN. Warm blanket given. Pillow given. kc6 20:15 Primary Nurse role handed off by Fabienne Childers RN rv1 22:02 Audrey Coelho is Primary Nurse. cp4 22:04 No provider procedures requiring assistance completed. Patient admitted, IV remains in cp4 place. O2 via room air. 22:05 Provided Education on: admission. cp4 Administered Medications: 17:45 Drug: NS 0.9% IV 1000 ml IV at 125 ml/hr continuous Route: IV; Rate: 125 ml/hr; Site: kc6 right forearm; 19:13 Follow up: Response: No adverse reaction; IV Status: Infusion continued upon admission kc6 17:45 Drug: Aspirin PO Chewable Tablet 81 mg PO once Route: PO; kc6 19:13 Follow up: Response: No adverse reaction 6 Medication: 22:05 VIS not applicable for this client. cp4 Outcome: 18:28 Decision to Hospitalize by Provider. [facility] 22:04 Admitted to ER Hold. Please see [facility] for further documentation. cp4 22:04 Condition: stable 22:04 Instructed on the need for admit, 06 07:35 Patient left the ED. eb Signatures: Dispatcher [employer] EDMS Tra Davis MD MD cha Garcia, Rubi rg4 Fátima De Oliveira Ashby, RN RN as6 Fabienne Childers, CHARLETTE RN kc6 Danay Del Rosario rv1 Audrey Coelho cp4
--- NOTE | 2023-08-22 18:29 | EDPHYS ---
Physician Documentation [facility] Name: Herb Greco Jr Age: 83 yrs Sex: Male : 1940 Arrival Date: 08/22/2023 Time: 17:07 Bed 17 Private MD: ED Physician Tra Davis HPI: 08/21 18:22 This 83 yrs old Male presents to ER via Ambulatory with complaints of Chest cortez Pain. 18:22 The patient or guardian reports chest pain that is located primarily in the anterior cortez chest wall, bilaterally. Onset: just prior to arrival. The pain does not radiate. Associated signs and symptoms: Pertinent positives: None. The chest pain is described as a heaviness, a pressure. Duration: The patient or guardian reports a single episode, that is now resolved. Modifying factors: The symptoms are alleviated by nothing. the symptoms are aggravated by nothing. Severity of pain: At its worst the pain was mild moderate in the emergency department the pain has resolved. The patient has experienced similar episodes in the past, a few times. Historical: - Allergies: 17:15 No Known Allergies; as6 - PMHx: 17:15 Alzheimers; Diabetes - NIDDM; Hypertension; as6 - PSHx: 17:15 open heart (Hypertension); Stented artery; Cholecystectomy; as6 - Immunization history:: Adult Immunizations up to date. - Infectious Disease History:: Denies. - Social history:: Smoking status: Patient denies any tobacco usage or history of. - Family history:: not pertinent. ROS: 18:22 Constitutional: Negative for fever, chills, and weight loss, Eyes: Negative for injury, cortez pain, redness, and discharge, ENT: Negative for injury, pain, and discharge, Neck: Negative for injury, pain, and swelling, Respiratory: Negative for shortness of breath, cough, wheezing, and pleuritic chest pain, Abdomen/GI: Negative for abdominal pain, nausea, vomiting, diarrhea, and constipation, Back: Negative for injury and pain, : Negative for injury, bleeding, discharge, and swelling, MS/Extremity: Negative for injury and deformity, Skin: Negative for injury, rash, and discoloration, Neuro: Negative for headache, weakness, numbness, tingling, and seizure, Psych: Negative for depression, anxiety, suicide ideation, homicidal ideation, and hallucinations, Allergy/Immunology: Negative for hives, rash, and allergies, Endocrine: Negative for neck swelling, polydipsia, polyuria, polyphagia, and marked weight changes, Hematologic/Lymphatic: Negative for swollen nodes, abnormal bleeding, and unusual bruising, 18:22 Cardiovascular: Positive for chest pain, of the chest, Exam: 18:22 Constitutional: This is a well developed, well nourished patient who is awake, alert, cortez and in no acute distress. Head/Face: Normocephalic, atraumatic. Eyes: Pupils equal round and reactive to light, extra-ocular motions intact. Lids and lashes normal. Conjunctiva and sclera are non-icteric and not injected. Cornea within normal limits. Periorbital areas with no swelling, redness, or edema. ENT: Nares patent. No nasal discharge, no septal abnormalities noted. Tympanic membranes are normal and external auditory canals are clear. Oropharynx with no redness, swelling, or masses, exudates, or evidence of obstruction, uvula midline. Mucous membranes moist. Neck: Trachea midline, no thyromegaly or masses palpated, and no cervical lymphadenopathy. Supple, full range of motion without nuchal rigidity, or vertebral point tenderness. No Meningismus. Chest/axilla: Normal chest wall appearance and motion. Nontender with no deformity. No lesions are appreciated. Cardiovascular: Regular rate and rhythm with a normal S1 and S2. No gallops, murmurs, or rubs. Normal PMI, no JVD. No pulse deficits. Respiratory: Lungs have equal breath sounds bilaterally, clear to auscultation and percussion. No rales, rhonchi or wheezes noted. No increased work of breathing, no retractions or nasal flaring. Abdomen/GI: Soft, non-tender, with normal bowel sounds. No distension or tympany. No guarding or rebound. No evidence of tenderness throughout. Back: No spinal tenderness. No costovertebral tenderness. Full range of motion. Male : Normal genitalia with no discharge or lesions. Skin: Warm, dry with normal turgor. Normal color with no rashes, no lesions, and no evidence of cellulitis. MS/ Extremity: Pulses equal, no cyanosis. Neurovascular intact. Full, normal range of motion. Neuro: Awake and alert, GCS 15, oriented to person, place, time, and situation. Cranial nerves II-XII grossly intact. Motor strength 5/5 in all extremities. Sensory grossly intact. Cerebellar exam normal. Normal gait. Psych: Awake, alert, with orientation to person, place and time. Behavior, mood, and affect are within normal limits. 18:22 ECG was reviewed by the Attending Physician. Vital Signs: 17:13 BP 162 / 82; Pulse 57; Resp 16 S; Temp 97.7(TE); Pulse Ox 97% on R/A; Weight 85.73 kg; as6 Height 5 ft. 5 in. (R); Pain 0/10; 17:46 BP 146 / 64; Pulse 56; Resp 15 S; Pulse Ox 97% on R/A; kc6 19:01 BP 163 / 78; Pulse 50; Resp 15 S; Pulse Ox 97% on R/A; kc6 20:00 BP 189 / 76; Pulse 51; Resp 18; Pulse Ox 97% ; cp4 21:00 BP 186 / 69; Pulse 52; Resp 18; Pulse Ox 97% ; cp4 17:13 Body Mass Index 31.45 (85.73 kg, 165.1 cm) as6 17:13 Pain Scale: Adult as6 MDM: 17:13 Patient medically screened. cortez 18:26 Differential diagnosis: abnormal EKG, acute myocardial infarction, anxiety, coronary cortez artery disease chest wall pain, costochondritis, pancreatitis, peptic ulcer disease, pneumonia, pulmonary embolus, stable angina, thoracic aortic disection, unstable angina. HEART Score: History: Moderately Suspicious (1), ECG: Normal (0), Age: > or = 65 years (2), Risk Factors: > or = 3 Risk factors for atherosclerotic disease (2), [Hypercholesterolemia] [Hypertension] [DM] [+ Family HX] Troponin: < or = 1 x Normal Limit (0). The patient was given aspirin in the Emergency Department. DELILAH Risk Score: 1 - patient's age is greater or equal to 65 years, 1 - Three or more CAD risk factors, 1- Known CAD, 1 - Recent [<24hrs] Severe Angina, TOTAL SCORE = 4. Data reviewed: vital signs, nurses notes, lab test result(s), EKG, radiologic studies, plain films. Consideration of Admission/Observation Patient was admitted/placed on observation. Escalation of care including admission/observation considered. I considered the following discharge prescriptions or medication management in the emergency department Medications were administered in the Emergency Department. See MAR. Independent interpretation of the following test(s) in the Emergency Department EKG: See my EKG interpretation above. 08/21 17:15 Order name: Basic Metabolic Panel; Complete Time: 18:11 [facility] 08/21 17:15 Order name: CBC with Diff; Complete Time: 18:11 [facility] 08/21 17:15 Order name: LFT's; Complete Time: 18:11 [facility] 08/21 17:15 Order name: Magnesium; Complete Time: 18:11 [facility] 08/21 17:15 Order name: NT PRO-BNP; Complete Time: 18:11 [facility] 08/21 17:15 Order name: PT-INR; Complete Time: 18:11 [facility] 08/21 17:15 Order name: Troponin HS; Complete Time: 18:11 [facility] 08/21 17:15 Order name: Lipase; Complete Time: 18:11 [facility] 08/21 17:15 Order name: Urinalysis w/ reflexes [facility] 08/21 18:39 Order name: Urinalysis w/ reflexes [facility] 08/21 18:39 Order name: CBC with Automated Diff [facility] 08/21 18:39 Order name: CBC with Automated Diff [facility] 08/21 18:39 Order name: Comprehensive Metabolic Panel [facility] 08/21 18:39 Order name: Comprehensive Metabolic Panel [facility] 08/21 18:39 Order name: Troponin High Sensitivity [facility] 08/21 18:39 Order name: Troponin High Sensitivity [facility] 08/21 18:39 Order name: Troponin High Sensitivity [facility] 08/21 18:39 Order name: Troponin High Sensitivity [facility] 08/22 00:00 Order name: Glucose, Ancillary Testing [facility] 08/21 17:15 Order name: XRAY Chest (1 view) [facility] 08/21 17:15 Order name: EKG; Complete Time: 17:15 [facility] 08/21 18:39 Order name: CONS Physician Consult [facility] 08/21 17:15 Order name: Cardiac monitoring; Complete Time: 17:38 [facility] 08/21 17:15 Order name: EKG - Nurse/Tech; Complete Time: 17:38 [facility] 08/21 17:15 Order name: IV Saline Lock; Complete Time: 17:39 [facility] 08/21 17:15 Order name: Labs collected and sent; Complete Time: 17:39 [facility] 08/21 17:15 Order name: O2 Per Protocol; Complete Time: 17:21 [place] 08/21 17:15 Order name: O2 Sat Monitoring; Complete Time: 17:21 [place]ez EC:22 Rate is 54 beats/min. Rhythm is regular. QRS [place] is Normal. HI interval is normal. QRS cortez interval is normal. QT interval is normal. No Q waves. T waves are Normal. No ST changes noted. Clinical impression: Sinus bradycardia and No evidence of ischemia. Interpreted by me. Reviewed by me. Administered Medications: 17:45 Drug: NS 0.9% IV 1000 ml IV at 125 ml/hr continuous Route: IV; Rate: 125 ml/hr; Site: [facility] right forearm; 19:13 Follow up: Response: No adverse reaction; IV Status: Infusion continued upon admission [facility] 17:45 Drug: Aspirin PO Chewable Tablet 81 mg PO once Route: PO; [facility] 19:13 Follow up: Response: No adverse reaction [facility] Disposition Summary: 08/22/23 18:28 Hospitalization Ordered Notes: Hospitalization Status: Observation cortez Provider: Adryan Richardson cortez Condition: Stable cortez Problem: new cortez Symptoms: have improved cortez Bed/Room Type: Standard cortez Location: Telemetry/MedSurg (observation)(08/23/23 07:00) eb Room Assignment: 211(08/23/23 07:00) eb Diagnosis - Chest pain, unspecified cortez - Essential (primary) hypertension cortez - Type 2 diabetes mellitus with hyperglycemia cortez Forms: - Medication Reconciliation Form cortez - SBAR form cortez - Leadership Thank You Letter cortez Signatures: Dispatcher [employer] EDTra Blue MD MD cha Botello, Elizabeth eb Slawson, Ashby, RN RN as6 Fabienne Childers RN RN kc6 Emily Louie, RN RN kb3 Corrections: (The following items were deleted from the chart) 17:16 17:15 BASIC METABOLIC PANEL+C.LAB.BRZ ordered. EDMS EDMS 17:16 17:15 CBC+H.LAB.BRZ ordered. EDMS EDMS 17:16 17:15 HEPATIC FUNCTION+C.LAB.BRZ ordered. EDMS EDMS 17:16 17:15 MAGNESIUM+C.LAB.BRZ ordered. EDMS EDMS 17:16 17:15 PROBNP+C.LAB.BRZ ordered. EDMS EDMS 17:16 17:15 PROTIME (+INR)+COAG.LAB.BRZ ordered. EDMS EDMS 17:16 17:15 Troponin High Sensitivity+C.LAB.BRZ ordered. EDMS EDMS 17:16 17:15 LIPASE+C.LAB.BRZ ordered. EDMS EDMS 17:16 17:15 Urinalysis+U.LAB.BRZ ordered. EDMS EDMS 19:20 18:28 Telemetry/MedSurg (observation) cortez kb3 19:20 18:28 cortez kb3 08/22 07:00 08/21 19:20 BR ER HOLD kb3 eb 08/22 07:00 08/21 19:20 ERHOLD- kb3 eb
[2023-08-22] MEDS ORDERED: ACETAMINOPHEN 325 MG TABLET PO PRN (18:34)
[2023-08-22] MEDS ORDERED: ONDANSETRON 4 MG/2 ML VIAL IV PRN (18:34)
--- NOTE | 2023-08-22 18:34 | P.HP ---
Certification for Inpatient Patient admitted to: Observation With expected LOS: <2 Midnights Practitioner: I am a practitioner with admitting privileges, knowledge of patient current condition, hospital course, and medical plan of care. Services: Services provided to patient in accordance with Admission requirements found in Title 42 Section 412.3 of the Code of Federal Regulations Patient History Date of Service: 08/23/23 Reason for admission: chest Pain History of Present Illness: 83 yrs old Male with past medical history of diabetes, hypertension, Alzheimer's dementia, CAD status post stents who was brought to ER with chest pain. Patient is a poor historian because of the dementia. Hence most of the history is obtained from the chart review and also talking to the ER physician and family member at the bedside. Chest pain located in the anterior chest wall both sides no radiation at the time of interview patient does not have any chest pain. Denies any shortness of breath. Pain is intermittent. Denies any fever or chills. No nausea vomiting or diarrhea or diaphoresis. Patient was assessed in the ER and is admitted for further management of chest pain to rule out ACS Allergies No Known Allergies Allergy (Unverified 04/23/23 07:27) Home medications list reviewed: Yes Home Medications: Glimepiride [Amaryl*] 4 mg PO DAILY 08/08/13 Metoprolol Tartrate 25 mg PO BID #60 tablet 05/16/21 Apixaban [Eliquis] 5 mg PO DAILY 02/01/22 Donepezil HCl 1 tab PO DAILY 02/01/22 Memantine HCl 2 tab PO DAILY 02/01/22 Metformin HCl [Metformin ER Gastric] 1 tab PO DAILY 02/01/22 Pioglitazone HCl 1 tab PO DAILY 02/01/22 Potassium Chloride [Micro-K] 1 tab PO DAILY 02/01/22 Simvastatin 1 tab PO DAILY 02/01/22 Tamsulosin [Flomax*] 1 tab PO DAILY 02/01/22 Gabapentin 1,000 mg PO DAILY 04/23/23 Esomeprazole Magnesium 40 mg PO 08/22/23 - Past Medical/Surgical History Diabetic: Yes Past Medical History: Reviewed- Non-Contributory -: GLUCOMA, -: NIDDM -: HTN -: COMANCHE -: A FIB -: erectile dysfunction Past Surgical History: Reviewed- Non-Contributory -: Hernia repair -: cardiac ablation x 2 -: heart stents - Social History Smoking Status: Never smoker Alcohol use: No CD- Drugs: No Caffeine use: No Review of Systems 10-point ROS is otherwise unremarkable Physical Examination - Vital Signs Temperature: 97.2 F Blood Pressure: 182/66 Pulse: 58 Respirations: 18 Pulse Ox (%): 94 - Physical Exam General: Alert, In no apparent distress, Confused HEENT: Atraumatic, Normocephalic Neck: Supple Respiratory: Clear to auscultation bilaterally, Normal air movement Cardiovascular: Regular rate/rhythm, Normal S1 S2 Capillary refill: <2 Seconds Gastrointestinal: Soft and benign, W/out hepatosplenomegaly Musculoskeletal: No clubbing, No swelling Integumentary: No rashes Neurological: Normal strength at 5/5 x4 extr, Cranial nerves 3-12 intact, Normal reflexes 2+, Normal affect Lymphatics: No axilla or inguinal lymphadenopathy - Studies Laboratory Data (last 24 hrs) 08/22/23 08/22/23 08/22/23 17:35 17:35 17:35 WBC 5.10 Hgb 12.5 L Hct 35.6 L Plt Count 218 PT 13.4 H INR 1.23 Sodium 138 Potassium 3.7 BUN 19 H Creatinine 1.03 Glucose 141 H Magnesium 2.1 Total Bilirubin 0.4 AST < 10 L ALT 15 L Alkaline Phosphatase 87 Lipase 44 Assessment and Plan - Problems (Diagnosis) (1) Unstable angina Current Visit: Yes Status: Acute Plan: Unstable angina Will trend cardiac enzymes Will monitor telemetry Started on aspirin and statin EKG did not show any acute changes suggestive of ischemia Patient denies any chest pain Will get an echocardiogram Cardiology consult Advanced dementia Supportive measures Continue home medications Hypertension Antihypertensives titrated Continue home medications and titrate as needed Hyperlipidemia Continue statin CKD stage II Monitor renal parameters Electrolytes monitor and replace accordingly Diabetes Insulin Sliding scale Accu-Chek q. ACH S GI/DVT prophylaxis Advanced directive full code - Advance Directives Does patient have a Living Will: No Does patient have a Durable POA for Healthcare: No
[2023-08-22 18:58] LABS: Specific Gravity 1.023 (1.005-1.030); Urine Bilirubin NEGATIVE (Negative); Urine Blood Negative (Negative); Urine Clarity Clear (Clear); Urine Color Light-Yellow (Yellow); Urine Glucose NEGATIVE (Negative); Urine Ketones NEGATIVE (Negative); Urine Microscopic Reflex YN NO UMIC; Urine Nitrite NEGATIVE (Negative); Urine Protein NEGATIVE (Negative); Urine Urobilinogen 1+ (Normal)
--- NOTE | 2023-08-22 19:07 | RAD REPORT ---
[facility] DES[facility]2023 5:44 pm CLINICAL HISTORY: PAIN COMPARISON: Chest Single View dated 04/22/2023; Abdomen 1 View (KUB) dated 11/30/2022; Chest Pa And Lat (2 Views) dated 11/30/2022; Chest Pa And Lat (2 Views) dated 02/28/2022 TECHNIQUE: Portable AP view of the chest. FINDINGS: The lungs are clear. No pneumothorax or effusion. The cardiomediastinal contours are unre markable. IMPRESSION: No acute cardiopulmonary process.
[2023-08-22] MEDS: ENOXAPARIN 40 MG/0.4 ML SQ SCH (20:00)
[2023-08-22] MEDS ORDERED: ENOXAPARIN 40 MG/0.4 ML SQ ONE (20:14)
[2023-08-22 22:29] VITALS: BMI 31.4
[2023-08-22] MEDS: QUETIAPINE 25 MG TAB ONE (23:31)
[2023-08-23 04:48] LABS: Absolute Basophils 0.1 K/uL (0-0.5); Absolute Eosinophils 0.3 K/uL (0-0.5); Absolute Lymphocytes (CBC) 1.3 K/uL (0.7-4.9); Absolute Monocytes 0.5 K/uL (0.1-1.3); Absolute Neutrophil 3.1 K/uL (1.8-8.0); Basophils % 1.3 % (0-1.3); Eosinophils % 5.4 % (0-4.4); Hematocrit 33.5 % (39.6-49.0); Hemoglobin 11.8 g/dL (13.6-17.9); Lymphocytes % 24.5 % (15.3-44.8); MCH 32.9 pg (27.0-35.0); MCHC 35.3 g/dL (32.0-36.0); MCV 93.4 fL (80-100); MPV 8.3 fL (7.6-11.3); Monocytes % 10.2 % (3.3-12.3); Neutrophils % 58.6 % (41.7-73.7); Platelets 198 thou/uL (152-406); RBC Red Blood Cell Count 3.59 M/uL (4.33-5.43)
[2023-08-23 05:04] LABS: Albumin/Globulin Ratio 1.1 (1.1-1.8); Anion Gap 3.3 mEq/L (5.0-15.0); Bilirubin Total 0.4 mg/dL (0.2-1.0); Globulin 2.7 g/dL (2.3-3.5); Potassium 3.3 mEq/L (3.5-5.1); Protein, Total 5.7 g/dL (6.4-8.2)
[2023-08-23] MEDS: POTASSIUM 25 MEQ EFFERV TAB PO ONE (06:21)
[2023-08-23 08:15] LABS: Anion Gap 4.5 mEq/L (5.0-15.0); Potassium 3.5 mEq/L (3.5-5.1)
[2023-08-23] MEDS: ASPIRIN EC 81 MG TAB PO SCH (09:08)
--- NOTE | 2023-08-23 10:08 | P.PN ---
Subjective Date of Service: 08/23/23 Chief Complaint: Unstable angina Subjective: Improving (Patient is improving very hard of hearing with underlying dementia discussed with his apparently started complaining of chest pains past 3 to 4 days history of coronary artery disease) Review of Systems is unable to be obtained Physical Examination - Vital Signs Temperature: 97.7 F Blood Pressure: 185/80 Pulse: 53 Respirations: 16 Pulse Ox (%): 96 - Physical Exam General: Alert, Cooperative Respiratory: Clear to auscultation bilaterally Cardiovascular: No edema, Regular rate/rhythm Gastrointestinal: Normal bowel sounds, Soft and benign - Studies Laboratory Data (last 24 hrs) 08/22/23 08/22/23 08/22/23 17:35 17:35 17:35 WBC 5.10 Hgb 12.5 L Hct 35.6 L Plt Count 218 PT 13.4 H INR 1.23 Sodium 138 Potassium 3.7 BUN 19 H Creatinine 1.03 Glucose 141 H Magnesium 2.1 Total Bilirubin 0.4 AST < 10 L ALT 15 L Alkaline Phosphatase 87 Lipase 44 Assessment And Plan - Current Problems (Diagnosis) (1) Unstable angina Current Visit: Yes Status: Acute Plan: Patient is 83 years of age with a history of coronary artery disease s/p CABG and stents admitted with chest pain just above unstable angina EKG no ischemic changes troponins are negative otherwise laboratory data is unremarkable continue to monitor await cardiology consult patient refused a cardiac cath before (2) Hypertension Current Visit: Yes Status: Acute Plan: Control blood pressure resume metoprolol add losartan hydrochlorothiazide Qualifiers: Hypertension type: primary hypertension Qualified Code(s): I10 - Essential (primary) hypertension
[2023-08-23] MEDS: POTASSIUM CL SA 10 MEQ TAB PO ONE (11:15)
[2023-08-23] MEDS: LOSARTAN/HCTZ 50-12.5 PO SCH (11:16)
[2023-08-23] MEDS: METOPROLOL TAR 25 MG TAB PO SCH (11:16)
[2023-08-23 12:30] VITALS: O2SAT 96
[2023-08-23 13:11] VITALS: BP 175/79; TEMP 97.8
--- NOTE | 2023-08-23 13:54 | EKG ---
Test Date: 2023-08-22 Test Time: 17:29:03 [employer] Hardware Outfitter: MELISSA MEASUREMENT RESULTS: Intervals: Rate: 54 MO: 204 QRSD: 80 QT: 452 QTc: 428 [place]: P: 24 MO: 204 QRS: 10 T: 68 INTERPRETIVE STATEMENTS: Sinus bradycardia Otherwise normal ECG Compared to ECG 04/22/2023 21:46:21 First degree AV block no longer present Electronically Signed On 08-23-23 13:53:25 CDT by Lauro Patino
--- NOTE | 2023-08-23 15:06 | P.DS ---
Admission Date: 08/22/23 Discharge Date: 08/23/23 Disposition: ROUTINE DISCHARGE Discharge Condition: GOOD Reason for Admission: Unstable angina Brief History of Present Illness: Diagnosis Unstable angina Hypertension Diabetes Mellitus Alzheimer's dementia CAD status post stent placement Status post CABG HPI 08/22/2023 Herb Greco is an 83 yrs old Male with past medical history of diabetes, hypertension, Alzheimer's dementia, CAD status post stents who was brought to ER with chest pain. Patient is a poor historian because of the dementia. Hence most of the history is obtained from the chart review and also talking to the ER physician and family member at the bedside. Chest pain located in the anterior chest wall both sides no radiation at the time of interview patient does not have any chest pain. Denies any shortness of breath. Pain is intermittent. Denies any fever or chills. No nausea vomiting or diarrhea or diaphoresis. Patient was assessed in the ER and is admitted for further management of chest pain to rule out ACS Hospital Course: Herb Greco is a pleasant 83 year old male with a past medical history significant for diabetes, hypertension, Alzheimer's dementia, CAD status post stents, s/p CABG who was admitted to the [facility] on 08/22/2023 for chest pain. Herb Greco presented to the ED with chest pain. Dr. Patino was consulted and has cleared his for discharge and follow up in his office in one week. Troponin and EKG negative, tolerating p.o. diet, ambulating independently, and hemodynamically stable for discharge. On 08/23/2023, Herb was seen on morning rounds and deemed medically stable for discharge. Herb was discharged with instructions to schedule follow-up appointments with PCP and Dr. Patino. The patient and family members were given the opportunity to ask questions and reported no further questions. Furthermore, all questions were answered to the best of my ability. A copy of this discharge summary will be sent to the above providers to facilitate continuity of care. Physical Exam General: Alert, In no apparent distress, Confused HEENT: Atraumatic, Normocephalic Neck: Supple Respiratory: Clear to auscultation bilaterally, Normal air movement Cardiovascular: Regular rate/rhythm, Normal S1 S2 Capillary refill: <2 Seconds Gastrointestinal: Soft and benign, W/out hepatosplenomegaly Musculoskeletal: No clubbing, No swelling Integumentary: No rashes Neurological: Normal strength at 5/5 x4 extr, Cranial nerves 3-12 intact, Normal reflexes 2+, Normal affect Lymphatics: No axilla or inguinal lymphadenopathy Vital Signs/Physical Exam: Temp Pulse Resp BP Pulse Ox 97.8 F 54 16 175/79 H 99 08/23/23 12:00 08/23/23 12:00 08/23/23 12:00 08/23/23 12:00 08/23/23 12:00 Laboratory Data at Discharge: WBC 5.30 thou/uL (4.3-10.9) 08/23/23 04:42 Hgb 11.8 g/dL (13.6-17.9) L 08/23/23 04:42 Hct 33.5 % (39.6-49.0) L 08/23/23 04:42 Plt Count 198 thou/uL (152-406) 08/23/23 04:42 PT 13.4 SECONDS (9.5-12.5) H 08/22/23 17:35 INR 1.23 08/22/23 17:35 Sodium 142 mEq/L (136-145) 08/23/23 07:52 Potassium 3.5 mEq/L (3.5-5.1) 08/23/23 07:52 BUN 17 mg/dL (7-18) 08/23/23 07:52 Creatinine 0.91 mg/dL (0.70-1.30) 08/23/23 07:52 Glucose 108 mg/dL (74-106) H 08/23/23 07:52 Magnesium 2.1 mg/dL (1.6-2.4) 08/22/23 17:35 Total Bilirubin 0.4 mg/dL (0.2-1.0) 08/23/23 04:42 AST 11 U/L (15-37) L 08/23/23 04:42 ALT 15 U/L (16-61) L 08/23/23 04:42 Alkaline Phosphatase 78 U/L (45-117) 08/23/23 04:42 Lipase 44 U/L (13-75) 08/22/23 17:35 Home Medications: Glimepiride [Amaryl*] 4 mg PO DAILY 08/08/13 Metoprolol Tartrate 25 mg PO BID #60 tablet 05/16/21 Apixaban [Eliquis] 5 mg PO DAILY 02/01/22 Donepezil HCl 1 tab PO DAILY 02/01/22 Memantine HCl 10 mg PO BID 02/01/22 Metformin HCl [Metformin ER Gastric] 1 tab PO DAILY 02/01/22 Pioglitazone HCl 1 tab PO DAILY 02/01/22 Potassium Chloride [Micro-K] 1 tab PO DAILY 02/01/22 Simvastatin 1 tab PO BEDTIME 02/01/22 Tamsulosin [Flomax*] 1 tab PO BEDTIME 02/01/22 Gabapentin 2 cap PO BEDTIME 04/23/23 Esomeprazole Magnesium 40 mg PO BID 08/22/23 Physician Discharge Instructions: Herb Greco presented to the ED with chest pain. Dr. Patino was consulted and has cleared his for discharge and follow up in his office in one week. 1. Please call and schedule a follow-up appointment with your PCP in 3-5 days - Please follow-up with your PCP for medication refills/adjustments 2. Please call and schedule a follow-up appointment with Sukumar in one week 3. Continue heart healthy diet 4. No activity restrictions 5. Continue home medications 6. Return to the ED if symptoms worsen Diet: AHA Activity: Ad shree Followup: Rober Guillaume MD [Primary Care Provider] - Lauro Patino MD [ACTIVE - CAN ADMIT] -
--- NOTE | 2023-08-23 16:24 | CON ---
Date of Consultation: 08/23/2023 Reason For Consultation: Chest pain. History Of Present Illness: An -[id number] male, history of diabetes, hypertension, advanced dementia, coronary artery disease, status post stent placement in the past, presented with chest charles n, very poor historian. Apparently, he has been coming on and off to the hospital multiple times wit h chest pain. I offered a coronary angiogram on him in the past. However, he was reluctant and refu sed. Chest pain is completely resolved now and he was standing at the door, wants to go home. Past Medical History: As outlined above in HPI. Medications: Refer to conciliation sheet for detailed list. Allergies: NO KNOWN DRUG ALLERGIES. Family History: No premature coronary artery disease or cancer. Social History: Does not smoke or drink. Does not use any drugs. Review of Systems: All systems reviewed were negative except mentioned in HPI. Physical Examination: Vital Signs: Reviewed. Head and Neck: Pupils are equal, reactive to light. Intact eye movements. No JVD. No cervical lym phadenopathy. Neck is supple. Thyroid is not enlarged. Lungs: Clear to auscultation bilaterally. No rhonchi, wheezing, or crackles. No accessory muscle u se. Heart: Regular rate and rhythm. No extra sounds. Abdomen: Soft, nontender. Bowel sounds positive. No organomegaly. No masses or hernia. No rigidi ty or rebound. Extremities: No edema, clubbing, cyanosis. Intact pulses. Skin: No rash. No nodule. Neurologic: Alert, awake, oriented x3. No acute focal deficit appreciated. Investigations: Troponin x4 negative. BUN 17, creatinine 0.91. Hemoglobin is 11.8. Assessment/recommendation: 1.Chest pain. I am not sure how typical it is. The patient is a very poor historian, but he has ad vanced dementia. In the past, and family elected not to pursue any further workup as he was ref using. At this point, he wants to go home and he is chest pain free. He can go home on baby aspirin and beta-andres. Follow up with me on Friday in the office and she will talk to him over the week and decide on a plan by Friday. If continues to be symptomatic, then I will offer him coronary an giogram as an outpatient. 2.Hypertension. Blood pressure is controlled. 3.Dyslipidemia, continue statin. 4.Advanced dementia. Supportive care is recommended. From cardiology standpoint, the patient can b e released to follow up as outpatient. SR/CORYL Voice ID: [id number] Report ID: [id number]
[2023-08-23] MEDS ORDERED: QUETIAPINE 25 MG TAB PO SCH (21:00)
[2023-08-23] MEDS ORDERED: MEMANTINE HCL 10 MG TABLET PO SCH (21:00)
[2023-08-23] MEDS ORDERED: METOPROLOL TAR 25 MG TAB PO SCH (21:00)
[2023-08-23] MEDS ORDERED: ATORVASTATIN 40 MG TAB PO SCH (21:00)
[2023-08-23] MEDS ORDERED: GABAPENTIN 100 MG CAP PO SCH (21:00)
[2023-08-24] MEDS ORDERED: TAMSULOSIN 0.4 MG SR CAP PO SCH (09:00)
[2023-08-24] MEDS ORDERED: PIOGLITAZONE 15 MG TAB PO SCH (09:00)
[2023-08-24] MEDS ORDERED: APIXABAN 5 MG TABLET PO SCH (09:00)
[2023-08-24] MEDS ORDERED: GLIMEPIRIDE 2 MG TABLET PO SCH (09:00)
[2023-08-24] MEDS ORDERED: METFORMIN ER 500 MG TAB PO SCH (09:00)
== END 2023-08-23 16:11 | disposition home or self-care (01) ==
LOC: ER 17:07 → ERHOLD 18:34 → 2ND 08-23 07:25
PROVIDERS: ADMIT Family Medicine; ATTEND Internal Medicine Sleep Medicine
DX: I20.0 Unstable angina (principal); I12.9 Hypertensive chronic kidney disease with stage 1 through stage 4 chronic kidney disease, or unspecified chronic kidney disease; N18.2 Chronic kidney disease, stage 2 (mild); I25.10 Atherosclerotic heart disease of native coronary artery without angina pectoris; E11.9 Type 2 diabetes mellitus without complications; G30.9 Alzheimer's disease, unspecified; F02.80 Dementia in other diseases classified elsewhere, unspecified severity, without behavioral disturbance, psychotic disturbance, mood disturbance, and anxiety; F03.C0 Unspecified dementia, severe, without behavioral disturbance, psychotic disturbance, mood disturbance, and anxiety; E78.5 Hyperlipidemia, unspecified; Z95.5 Presence of coronary angioplasty implant and graft; Z95.1 Presence of aortocoronary bypass graft
CPT/HCPCS: 93005; 85025 ×2; 80048 ×2; 36415; 83735; 85610; 82947 ×4; 80076; 81003; 84484 ×4; 83690; 80053; 83880; 71045; 94760; J1650 ×2; J7030; 96360; 99285; G0378

== ENCOUNTER 2024-01-19 19:35 | Emergency (ER) | payer OTHER ==
[2024-01-19 20:06] LABS: Absolute Basophils 0.1 K/uL (0-0.5); Absolute Eosinophils 0.1 K/uL (0-0.5); Absolute Lymphocytes (CBC) 1.3 K/uL (0.7-4.9); Absolute Monocytes 0.5 K/uL (0.1-1.3); Absolute Neutrophil 2.9 K/uL (1.8-8.0); Basophils % 1.8 % (0-1.3); Eosinophils % 2.4 % (0-4.4); Hematocrit 37.3 % (39.6-49.0); Lymphocytes % 26.8 % (15.3-44.8); MCHC 34.9 g/dL (32.0-36.0); MCV 94.5 fL (80-100); MPV 8.3 fL (7.6-11.3); Monocytes % 10.3 % (3.3-12.3); Neutrophils % 58.7 % (41.7-73.7); Nucleated Red Blood Cells % 0.1 % (0-0); Platelets 240 thou/uL (152-406); RBC Red Blood Cell Count 3.94 M/uL (4.33-5.43); Red Cell Distribution Width 13.4 % (12.1-15.2)
--- NOTE | 2024-01-19 20:24 | RAD REPORT ---
Procedure: Chest Single View HISTORY: Chest pain COMPARISON: August 2023 FINDINGS: The lungs appear clear of acute infiltrate. No significant pleural effusion noted. The heart is mildly enlarged IMPRESSION: No acute abnormality is displayed.
[2024-01-19 20:34] LABS: Anion Gap 5.6 mEq/L (5.0-15.0); Magnesium 1.9 mg/dL (1.6-2.4); Potassium 3.6 mEq/L (3.5-5.1); Troponin High Sensitivity 9.2 pg/mL (<58.9)
--- NOTE | 2024-01-19 23:52 | EDPHYS ---
Physician Documentation [facility] Name: Herb Greco Jr Age: 83 yrs Sex: Male : 1940 Arrival Date: 01/19/2024 Time: 19:35 Bed 6 Private MD: ED Physician Paul Gonzalez HPI: 01/18 20:43 This 83 yrs old Male presents to ER via Ambulatory with complaints of Chest ec2 Pain. 20:43 Patient arrives today for reported chest pain. Patient has a history of Alzheimer's, ec2 denies any pain at this time. reports that he has pain nightly which improves with Mylanta. Patient otherwise has no other complaints. Has a history of hypertension, hyperlipidemia, diabetes, GERD.. Historical: - Allergies: 19:51 No Known Allergies; cm10 - PMHx: 19:51 Alzheimers; Diabetes - NIDDM; Hypertension; cm10 - PSHx: 19:51 Cholecystectomy; open heart (en); Stented artery; cm10 - Immunization history:: Adult Immunizations up to date. - Infectious Disease History:: Denies. - Social history:: Smoking status: Patient denies any tobacco usage or history of. ROS: 20:43 Constitutional: as per hpi ec2 Exam: 20:43 Constitutional: GEN: NAD Head: atraumatic Eyes: EOMI Ears: External ears are ec2 normal. CV: regular rate LUNGS: no respiratory distress ABD: non-distended SKIN: no evidence of rashes MSK: no evidence of trauma Vital Signs: 19:49 BP 143 / 80; Pulse 56; Resp 16; Temp 97.4(TE); Pulse Ox 99% on R/A; Weight 72.57 kg; cm10 Height 5 ft. 5 in. ; 21:40 BP 137 / 74; Pulse 52; Resp 16; Pulse Ox 99% ; dd2 23:43 BP 134 / 71; Pulse 48; Resp 16; Pulse Ox 99% on R/A; dd2 19:49 Body Mass Index 26.63 (72.57 kg, 165.1 cm) cm10 MDM: 20:17 Data reviewed: vital signs. ED course: EKG independently reviewed and interpreted by ec2 ms, shows normal sinus rhythm, rate of 60, no acute ST segment elevations, intervals are nonactionable. . 20:28 Medical Screening Exam initiated ec2 20:36 ED course: Metabolic profile is reassuring. CBC is nonactionable. Troponin within ec2 normal ranges. Chest x-ray shows no acute intrathoracic process. Will obtain repeat EKG and troponin at the 2-hour alix. . 20:43 ED course: Arrives today for evaluation of chest pain. Examination remarkable for ec2 well-appearing nontoxic dividual's otherwise in no acute distress with a reassuring examination. Will obtain repeat EKG and troponin at the 2-hour alix. Differential diagnosis includes process such as ACS, PE, dissection, GERD.. 23:38 ED course: EKG repeat independently reviewed and interpreted by me, shows normal sinus ec2 rhythm, rate of 50, no acute ST segment elevations, intervals nonactionable.. 23:50 ED course: Repeat troponin is static. Will discharge home, no recurrence of symptoms. ec2 Return precautions given. 01/18 19:52 Order name: Basic Metabolic Panel; Complete Time: 20:35 cm10 01/18 19:52 Order name: CBC with Diff; Complete Time: 20:35 cm10 01/18 19:52 Order name: Magnesium; Complete Time: 20:35 cm10 01/18 19:52 Order name: Troponin HS; Complete Time: 20:35 cm10 01/18 21:53 Order name: Troponin High Sensitivity; Complete Time: 23:50 ec2 01/18 19:52 Order name: XRAY Chest (1 view); Complete Time: 20:35 cm10 01/18 19:52 Order name: Cardiac monitoring; Complete Time: 23:45 cm10 01/18 19:52 Order name: EKG - Nurse/Tech; Complete Time: 19:52 cm10 01/18 19:52 Order name: IV Saline Lock; Complete Time: 19:57 cm10 01/18 19:52 Order name: Labs collected and sent; Complete Time: 19:57 cm10 01/18 19:52 Order name: O2 Per Protocol; Complete Time: 23:45 cm10 01/18 19:52 Order name: O2 Sat Monitoring; Complete Time: 23:45 cm10 01/18 20:44 Order name: Misc. Order: repeat EKG/trop at 2200; Complete Time: 23:35 ec2 01/18 21:53 Order name: EKG - Nurse/Tech; Complete Time: 23:35 ec2 Administered Medications: No medications were administered Disposition Summary: 01/19/24 23:51 Discharge Ordered Notes: Location: Home ec2 Condition: Stable ec2 Diagnosis - Chest pain, unspecified ec2 Followup: ec2 - With: Private Physician - When: - Reason: Re-evaluation by your physician Discharge Instructions: - Discharge Summary Sheet ec2 - Nonspecific Chest Pain, Adult ec2 Forms: - Medication Reconciliation Form ec2 - Antibiotic Education ec2 - Prescription Opioid Use ec2 - Patient Portal Instructions ec2 - Leadership Thank You Letter ec2 Signatures: Dispatcher [employer] Marianela Thompson RN RN cm10 Paul Gonzalez MD MD ec2
--- NOTE | 2024-01-19 23:52 | ER ---
Nurse's Notes [facility] Name: Herb Greco Jr Age: 83 yrs Sex: Male : 1940 Arrival Date: 01/19/2024 Time: 19:35 Bed 6 Private MD: Diagnosis: Chest pain, unspecified Presentation: 01/18 19:49 Chief complaint: Patient states: Chest pain onset 2-3hrs SANDWICH HAND. Pt reports that the pain cm10 is to the left side of his chest. 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 Coronavirus screen: Client denies travel out of the [place] in the last 14 days. Ebola Screen: Patient denies travel to an Ebola-affected area in the 21 days before illness onset. No symptoms or risks identified at this time. Initial Sepsis Screen: Does the patient meet any 2 criteria? No. Patient's initial sepsis screen is negative. Does the patient have a suspected source of infection? No. Patient's initial sepsis screen is negative. Risk Assessment: Do you want to hurt yourself or someone else? Patient reports no desire to harm self or others. Onset of symptoms was January 19, 2024. 19:49 Method Of Arrival: Ambulatory cm10 19:49 Acuity: LIZZ 2 cm10 Triage Assessment: 19:51 General: Appears in no apparent distress. comfortable, Behavior is calm, cooperative. cm10 Neuro: No deficits noted. Level of Consciousness is awake, alert, obeys commands, Oriented to person, place, time, situation, Appropriate for age. Historical: - Allergies: 19:51 No Known Allergies; cm10 - PMHx: 19:51 Alzheimers; Diabetes - NIDDM; Hypertension; cm10 - PSHx: 19:51 Cholecystectomy; open heart (en); Stented artery; cm10 - Immunization history:: Adult Immunizations up to date. - Infectious Disease History:: Denies. - Social history:: Smoking status: Patient denies any tobacco usage or history of. Screenin:30 [facility] ED Fall Risk Assessment (Adult) History of falling in the last 3 months, dd2 including since admission No falls in past 3 months (0 pts) Confusion or Disorientation Yes (5 pts) Intoxicated or Sedated No (0 pts) Impaired Gait No (0 pts) Mobility Assist Device Used No (0 pt) Altered Elimination No (0 pt) Score/Fall Risk Level 3 or more points = High Risk Oriented to surroundings, Maintained a safe environment, Educated pt \T\ family on fall prevention, incl call for assistance when getting out of bed, Assessed \T\ reinforced patient's understanding of fall precautions, Hourly rounding (assess needs \T\ fall precautionary measures) done, Utilized family, sitter, or virtual behavioral science chair as indicated. Abuse screen: Denies threats or abuse. Nutritional screening: No deficits noted. Tuberculosis screening: No symptoms or risk factors identified. Assessment: 21:30 General: Appears in no apparent distress. Behavior is calm, cooperative, appropriate dd2 for age. Pain: Denies pain. PT HAS HX OF ALZHEIMERS AND UNABLE TO RECALL WHY HE IS HERE IN THE ER. PT DENYING PAIN AT THIS TIME Pain began UNSURE. Neuro: Level of Consciousness is awake, alert, obeys commands, confused, H OF ALZHEIMER . Oriented to person. Cardiovascular: Heart tones S1 S2 present Patient's skin is warm and dry. Rhythm is sinus bradycardia Chest pain PT DENIES PAIN AT THIS TIME. PT HAS HX ALZHEIMER AND UNABLE TO RECALL REASON FOR VISIT. Respiratory: Airway is patent Respiratory effort is even, unlabored, Respiratory pattern is regular, symmetrical, Breath sounds are clear bilaterally. GI: No signs and/or symptoms were reported involving the gastrointestinal system. Abdomen is non-distended, Abd is soft and non tender. : No deficits noted. No signs and/or symptoms were reported regarding the genitourinary system. EENT: No deficits noted. No signs and/or symptoms were reported regarding the EENT system. Derm: No deficits noted. No signs and/or symptoms reported regarding the dermatologic system. Musculoskeletal: No deficits noted. No signs and/or symptoms reported regarding the musculoskeletal system. Circulation, motion, and sensation intact. Range of motion: intact in all extremities. Vital Signs: 19:49 BP 143 / 80; Pulse 56; Resp 16; Temp 97.4(TE); Pulse Ox 99% on R/A; Weight 72.57 kg; cm10 Height 5 ft. 5 in. ; 21:40 BP 137 / 74; Pulse 52; Resp 16; Pulse Ox 99% ; dd2 23:43 BP 134 / 71; Pulse 48; Resp 16; Pulse Ox 99% on R/A; dd2 19:49 Body Mass Index 26.63 (72.57 kg, 165.1 cm) 10 ED Course: 19:37 Patient arrived in ED. [id number] 19:48 Arm band placed on right wrist. Patient placed in waiting room. EKG completed in 10 triage. Results shown to MD. 19:51 Triage completed. 10 19:52 EKG done, by ED staff, reviewed by Paul Gonzalez MD. 10 19:57 Basic Metabolic Panel Sent. 10 19:57 CBC with Diff Sent. cm10 19:57 Magnesium Sent. cm10 19:57 Troponin HS Sent. 10 19:57 Initial lab(s) drawn, by me, sent to lab. Inserted saline lock: 20 gauge in right cm10 forearm, using aseptic technique. Blood collected. Flushed with 10 mL NS. 20:08 XRAY Chest (1 view) In Process Unspecified. EDMS 20:10 Paul Gonzalez MD is Attending Physician. ec2 21:30 Patient has correct armband on for positive identification. Bed in low position. Call dd2 light in reach. Side rails up X 1. Adult w/ patient. Provided Education on: CALL LIGHT, LABS/RESULT TIME. Client placed on continuous cardiac and pulse oximetry monitoring. NIBP monitoring applied. electronic device monitor on. Door closed. Noise minimized. Warm blanket given. Pillow given. Verbal reassurance given. 23:18 JARED ROQUE, RN is Primary Nurse. dd2 23:28 Troponin High Sensitivity Sent. dd2 23:35 No provider procedures requiring assistance completed. EKG done, by ED staff, reviewed dd2 by Paul Gonzalez MD. Patient maintains SpO2 saturation greater than 95% on room air. 23:45 Troponin High Sensitivity Sent. dd2 01/19 00:17 IV discontinued, intact, bleeding controlled, No redness/swelling at site. Pressure dd2 dressing applied. Administered Medications: No medications were administered Medication: 01/18 21:30 VIS not applicable for this client. dd2 Outcome: 23:51 Discharge ordered by . ec2 01/19 00:17 Discharged to home ambulatory, dd2 Condition: stable Discharge instructions given to significant other, Instructed on discharge instructions, follow up and referral plans. Demonstrated understanding of instructions, follow-up care, 00:17 Patient left the ED. dd2 Signatures: Dispatcher [employer] EDMA Heather Rees [email or web address] Marianela Workman RN RN cm10 Paul Gonzalez MD MD ec2 JARED ROQUE RN RN dd2
[2024-01-20 03:46] VITALS: BP 134/71; TEMP 97.4; O2SAT 99
--- NOTE | 2024-01-21 14:52 | EKG ---
Test Date: 2024-01-19 Test Time: 23:33:51 [employer] Telephone Clerk: ADILIA MEASUREMENT RESULTS: Intervals: Rate: 50 MA: 210 QRSD: 80 QT: 474 QTc: 432 [place]: P: -16 MA: 210 QRS: 38 T: -21 INTERPRETIVE STATEMENTS: Sinus bradycardia with 1st degree AV block Otherwise normal ECG Compared to ECG 01/19/2024 19:46:39 First degree AV block now present Sinus rhythm no longer present Electronically Signed On 01-21-24 14:47:05 CDT by Lauro Patino
--- NOTE | 2024-01-21 14:54 | EKG ---
Test Date: 2024-01-19 Test Time: 19:46:39 [employer] Director [employer]: CARLY MEASUREMENT RESULTS: Intervals: Rate: 60 LA: 202 QRSD: 76 QT: 426 QTc: 426 [place]: P: 67 LA: 202 QRS: 0 T: 78 INTERPRETIVE STATEMENTS: Normal sinus rhythm Normal ECG Compared to ECG 08/22/2023 17:29:03 Sinus bradycardia no longer present Electronically Signed On 01-21-24 14:47:40 CDT by Lauro Patino
== END 2024-01-20 00:17 | disposition home or self-care (01) ==
LOC: ER 19:35
DX: R07.9 Chest pain, unspecified (principal); E11.9 Type 2 diabetes mellitus without complications; I10 Essential (primary) hypertension; G30.9 Alzheimer's disease, unspecified; F02.80 Dementia in other diseases classified elsewhere, unspecified severity, without behavioral disturbance, psychotic disturbance, mood disturbance, and anxiety
CPT/HCPCS: 36415; 71045; 80048; 83735; 84484; 85025; 93005; 99285